=== PATIENT | female | born 1970 | race Caucasian/White ===

== ENCOUNTER → 2021-02-14 | Outpatient (CLI) | payer OTHER, SELFPAY ==
[2021-02-14 17:28] LABS: Absolute Lymphocyte Count 2.19 X10^3/uL (0.83-4.51); Absolute Neutrophil Count 5.1 X10^3/uL (2.0-7.7); Basophil# 0.03 X10^3/uL; Basophil% 0.4 % (0-1); Hematocrit 43.8 % (37-47); Hemoglobin 14.6 g/dL (12.0-15.0); Lymphocyte # 2.19 X10^3/ul (0.83-4.51); Lymphocyte % 27.7 % (19-41); Mean Corp Hgb Conc 33.3 g/dL (32-36); Mean Corpuscular Hgb 29.1 pg (27.0-32.0); Mean Corpuscular Volume 87.3 fL (81-99); Mean Platelet Vol. 10.5 fl (6.2-12.0); Monocyte# 0.56 X10^3/uL; Monocyte% 7.1 % (0-10); NRBC Flagged by Analyzer 0 % (0-5); Neutrophil % 64.5 % (47-70); Platelet Count 294 K/mm3 (150-450); RBC Distribution Width CV 13.2 % (11.6-14.6); RBC Distribution Width SD 41.9 fl (35.1-43.9); Red Blood Count 5.02 M/mm3 (4.2-5.4); White Blood Count 7.9 K/mm3 (4.4-11.0)
[2021-02-14 17:32] LABS: Erythrocyte Sedimentation Rate 6 mm/hr (0-30)
[2021-02-14 17:56] LABS: Anion Gap 6 (5-15); BUN 13 mg/dL (7-18); BUN/Creat Ratio 13.6 RATIO (10-20); CRP 5.43 mg/L (0.0-3.0); Chloride 109 mmol/L (98-107); Creatinine, Serum 0.95 mg/dL (0.55-1.02); EST Glomerular Filtration Rate 66 mL/min (>60); Est Glom Filt Rate - Afr Amer 80 mL/min (>60); Glucose 89 mg/dL (74-106); Potassium 3.7 mmol/L (3.5-5.1); Sodium Level 140 mmol/L (136-145); Vitamin D,25 Hydroxy 36.8 ng/mL
== END | disposition home or self-care (01) ==
PROVIDERS: Visit Provider Registered Nurse
DX: E55.9 Vitamin D deficiency, unspecified (principal); R22.0 Localized swelling, mass and lump, head
CPT/HCPCS: 80048; 82306; 85025; 85652; 86140; 86160

== ENCOUNTER → 2022-01-11 | Outpatient (CLI) | payer OTHER, SELFPAY ==
--- NOTE | 2022-01-11 14:06 | MRI_ITS ---
STUDY: MR PELVIS WITH T WITHOUT CONTRAST REASON FOR EXAM: Female, 51 years old. ANAL CANAL CA TECHNIQUE: Standardized fat and water weighted pulse sequences were obtained in all 3 orthogonal planes, pre-and post contrast administration. IV 18ml Dotarem was administered for the contrast portion of the examination. COMPARISON: None. FINDINGS: Normal urinary bladder. Normal visualized small intestine. Normal visualized colon. There is no pelvic fluid. There is no pelvic mass lesion or lymphadenopathy. There are multiple nodularities associated with the anal canal and rectum. These could represent either metastatic areas of neoplasm or areas of focal fecal material. No definite metastatic lesions are identified along the pelvic sidewalls. Normal visualized pelvic arteries. Normal osseous structures. Normal abdominal wall. MRI/Pelvis W/WO Contrast IMPRESSION: History of anal canal carcinoma. Electronically Signed: Bk Pablo MD at 5:40 EDT ,
== END | disposition home or self-care (01) ==
PROVIDERS: Referring Provider Internal Medicine Hematology & Oncology; Visit Provider Internal Medicine Hematology & Oncology
DX: C21.0 Malignant neoplasm of anus, unspecified (principal)
CPT/HCPCS: 72197; A9575

== ENCOUNTER → 2022-01-28 | Outpatient (CLI) | payer OTHER, SELFPAY ==
[2022-01-28 10:10] VITALS: BP 118/82; PULSE 77; RESP 18; TEMP 36.7; O2SAT 95; BMI 33.8
--- NOTE | 2022-01-28 11:05 | RAD_ITS ---
STUDY: X-RAY CHEST REASON FOR EXAM: Female, 51 years old. ANAL CA (PICC PLACEMENT) TECHNIQUE: Single AP portable view of the chest. COMPARISON: None. FINDINGS: A right-sided PICC line catheter has been placed. The tip is at the junction of the superior vena cava and right atrium. The lungs are clear and expanded. There is no demonstrated pleural abnormality. Normal size heart. Normal mediastinum and praful. Normal visualized pulmonary arteries. Normal visualized aortic arch and descending thoracic aorta. Normal visualized thoracic spine. Normal visualized ribs, clavicles, and shoulders. There is no demonstrated abnormality of the visualized soft tissue structures of the upper abdomen. RAD/CXR for Line Placement IMPRESSION: The tip of the right-sided PICC line catheter is at the junction of the superior vena cava and right atrium. Electronically Signed: Steve Prince MD at 11:17 EDT ,
== END | disposition home or self-care (01) ==
LOC: RAD 09:48
PROVIDERS: Referring Provider Internal Medicine Hematology & Oncology; Visit Provider Internal Medicine Hematology & Oncology
DX: C21.0 Malignant neoplasm of anus, unspecified (principal)
CPT/HCPCS: 36569; 71045

== ENCOUNTER 2022-02-19 10:21 | Emergency (ER) | payer OTHER, SELFPAY ==
[2022-02-19 10:22] VITALS: BP 109/78; PULSE 90; RESP 18; TEMP 36.6; O2SAT 97; BMI 34.2
[2022-02-19 10:27] VITALS: BP 109/78; PULSE 90; RESP 18; TEMP 36.6; O2SAT 97
--- NOTE | 2022-02-19 10:43 | CT_ITS ---
STUDY: CTA CHEST REASON FOR EXAM: Female, 51 years old. Right CP, sob, cancer, indwelling PICC RADIATION DOSAGE (If Supplied By Facility): CTDIvol = ( 8.6 ) mGy, DLP = ( 441.15 ) mGycm TECHNIQUE: The examination was performed with the intravenous administration of IV 75mL Isovue-370. Post-processing of the angiographic images was performed, with multiplanar reformation and 3D reconstruction. Individualized dose optimization techniques were used for this CT. COMPARISON: None. FINDINGS: Normal enhancement of the main pulmonary artery and right and left pulmonary arteries. Normal enhancement of the bilateral peripheral pulmonary arteries. There is no demonstrated pulmonary embolism. Normal thoracic aorta and visualized great vessels. There is no demonstrated aortic dissection. Normal heart and pericardium. Normal mediastinum. Normal hilar regions. Normal visualized trachea and bronchi. The lungs are well expanded. Normal pulmonary parenchyma. Normal pleura. Normal chest wall structures. There are degenerative changes of thoracic spine. Normal visualized upper abdomen. CT/CTA Chest W/WO Contrast IMPRESSION: Normal CTA chest examination, without a demonstrated pulmonary embolism or arterial dissection. Electronically Signed: Steve Prince MD at 11:57 EDT ,
--- NOTE | 2022-02-19 10:43 | EKG12_ITS ---
Test Reason : SOB Blood Pressure : / mmHG Vent. Rate : 101 BPM Atrial Rate : 101 BPM P-R Int : 174 ms QRS Dur : 076 ms QT Int : 348 ms P-R-T Axes : 040 -31 008 degrees QTc Int : 451 ms Sinus tachycardia Left axis deviation Low voltage QRS Abnormal ECG Confirmed by EVELIN MARRUFO, LOYD ([id number]), make up editor HAYDEE FRASER ([id number]) on 02/20/2022 9:03:08 AM Referred By: SEBASTIEN Confirmed By:LOYD WATERS MD
--- NOTE | 2022-02-19 10:44 | ED.VIS.DYS ---
HPI History of Present Illness Chief Complaint: Shortness of Breath Informant: patient Onset/Context/Timing Onset: Today Context: gradual and onset Timing: Continuous Quality: Positive for - (hard to breathe/take breaths) Current Severity: Mild Maximum Severity: Moderate Worsened by: Exertion Relieved by: Nothing Associated Symptoms Negative for cough Chest Pain: Positive for Intermittent and Tightness (right side, upper chest, no radiation) Narrative Narrative: Patient is actively undergoing chemotherapy and radiation for anal cancer, she is 4 weeks into treatments. Over the past 3 or 4 days she has had intermittent right upper chest pain that has for the most part been nonpleuritic and without any other symptoms, but today she started getting short of breath and she was sent for evaluation of pulmonary embolus. She has an indwelling right upper extremity PICC for her treatments. She has had no issues in her arm or swelling. No history of blood clots, no leg pain or swelling, no other symptoms. No near-syncope or syncope, palpitations, cough, fevers or chills, although she did have some low-grade temperatures 3 days ago in the 99 range but none today or yesterday. [facility] Medical History (Updated 02/19/22 @ 12:[address] Srinivasan Vail MD) Anal cancer Asthma GERD (gastroesophageal reflux disease) Home Medications Lactobacillus acidophilus 10 mg PO DAILY 02/19/22 [History Last Taken Unknown] albuterol 90 mcg INHALATION Q4H PRN 02/19/22 [History Last Taken Unknown] cetirizine 10 mg PO BID 02/19/22 [History Last Taken Unknown] cyanocobalamin (vitamin B-12) 50 mcg PO DAILY 02/19/22 [History Last Taken Unknown] erenumab-aooe 70 mg SUBCUT QMONTH 02/19/22 [History Last Taken Unknown] ergocalciferol (vitamin D2) 50,000 unit PO QWEEK 02/19/22 [History Last Taken Unknown] famotidine [Pepcid] 20 mg PO QHS 02/19/22 [History Last Taken Unknown] levothyroxine [Synthroid] 175 mcg PO DAILY 02/19/22 [History Last Taken Unknown] magnesium mg PO DAILY 02/19/22 [History Last Taken Unknown] pantoprazole 40 mg PO DAILY 02/19/22 [History Last Taken Unknown] polyethylene glycol 3350 [Miralax] 17 g PO BID 02/19/22 [History Last Taken Unknown] starch ea MISCELLANEOUS 02/19/22 [History Last Taken Unknown] sumatriptan succinate [Imitrex] 100 mg PO Q2H PRN 02/19/22 [History Last Taken Unknown] triamcinolone acetonide [Nasacort] 2 spray INTRANASAL DAILY 02/19/22 [History Last Taken Unknown] wheat dextrin g PO BID 02/19/22 [History Last Taken Unknown] Allergy/AdvReac Type Severity Reaction Status Date / Time Beta-Blockers AdvReac allergy Verified 02/19/22 10:25 (Beta-Adrenergic Bloc immunotherapy gluten AdvReac Diarrhea Verified 02/19/22 10:25 tramadol AdvReac headache, Verified 02/19/22 10:25 stiffness Surgical History (Updated 02/19/22 @ 10:58 by Lesley Tamayo) H/O thyroidectomy Social History Smoking Status: Never smoker ROS ROS ED Constitutional Constitutional ED: Denies chills or fever(s) Eyes Eyes: Denies change in vision or diplopia ENT ENT ED: Denies rhinorrhea or sore throat Cardiovascular Cardiovascular: Reports chest pain; Denies palpitations Respiratory/Chest Respiratory/Chest: Reports as per HPI and dyspnea; Denies cough Gastrointestinal Gastrointestinal: Reports other Details: Less anal pain than she used to have ; Denies abdominal pain, diarrhea, nausea or vomiting Genitourinary Genitourinary ED: Denies dysuria or hematuria Musculoskeletal Musculoskeletal: Denies back pain or neck pain Integumentary Denies abscess or rash Neurologic Neurologic: Denies headache(s), paresthesias or weakness Psychiatric Psychiatric: Denies anxiety or suicidal thoughts EXAM Physical Exam Const Vital Signs: 02/19/22 10:22 02/19/22 10:27 02/19/22 10:57 Temperature 98 F 98 F Temperature Source Temporal Temporal Pulse Rate 90 90 Respiratory Rate 18 18 Respiratory Effort Short of Breath Blood Pressure 109/78 109/78 Blood Pressure Mean 88 88 Pulse Ox 97 97 Oxygen Delivery Method Room Air Room Air Room Air 02/19/22 10:59 Temperature Temperature Source Pulse Rate Respiratory Rate Respiratory Effort Short of Breath Blood Pressure Blood Pressure Mean Pulse Ox Oxygen Delivery Method Positive well nourished and well developed General Appearance ED: well developed and NAD HEENT Reports moist mucous membranes normocephalic and atraumatic Eyes PERRL and EOMs intact bilaterally Neck full ROM and supple Resp normal respiratory effort and clear to auscultation bilaterally Cardio regular rate, regular rhythm and no murmurs Rate: Negative for tachycardic GI non-tender and non-distended Auscultation: normoactive bowel sounds Palpation: soft Back/Spine no CVA tenderness General Back: other FROM Extremity normal to inspection General Extremety ED: Negative for edema, pulses abnormal or tenderness General Extremity: Negative for edema or pulses abnormal Neuro oriented x3, CN's II-XII intact bilaterally and no sensory deficits noted Sensorium / Orientation: awake and alert Motor Exam: strength 5/5 throughout Skin no rashes or lesions noted and no wounds MDM MDM MDM Narrative Medical decision making narrative: Given that the patient is relatively high risk for a pulmonary embolus given her symptoms and the presence of a PICC line and cancer that is active, CT angiography of the chest was performed without performing a D-dimer which would be very likely to be elevated. Her CTA was normal, showing no pulmonary embolism, mass, infiltrate, dissection, or other acute abnormality. Her EKG is normal to for mild tachycardia and a left axis. Her other labs are normal including her heart enzymes which do not need to be repeated emergently. She was reassured, given Toradol, a possible diagnosis of pleurisy, and discharged to follow-up as scheduled for her next treatments. Lab Data Attestation: I reviewed the patient's lab results. Labs: Laboratory Results - last 24 hr 02/19/22 02/19/22 10:54 10:54 WBC 5.0 RBC 4.05 L Hgb 12.0 Hct 36.2 L MCV 89.4 MCH 29.6 MCHC 33.1 RDW Std Deviation 44.5 H RDW Coeff of Rosie 14.5 Plt Count 109 L MPV 8.6 Immature Gran % (Auto) 1.000 H Neut % (Auto) 77.0 H Lymph % (Auto) 8.7 L [place] % (Auto) 12.7 H Eos % (Auto) 0.0 Baso % (Auto) 0.6 Absolute Neuts (auto) 3.8 Absolute Lymphs (auto) 0.43 L Nucleated RBC % 0 Platelet Estimate ADEQUATE RBC Morphology NORM C+C Sodium 139 Potassium 3.7 Chloride 107 Carbon Dioxide 29.0 Anion Gap 3 L BUN 8 Creatinine 0.72 Estim Creat Clear Calc 78.19 Est GFR (MDRD) Af Amer 111 Est GFR (MDRD) Non-Af 91 BUN/Creatinine Ratio 11.1 Glucose 119 H Calcium 8.7 Troponin I High Sens < 3 L Radiography Diagnostic Testing: Clinical Impression(s) from Imaging Studies Chest CTA 02/19/22 10:43 IMPRESSION: Normal CTA chest examination, without a demonstrated pulmonary embolism or arterial dissection. Electronically Signed: Steve Prince MD at 11:57 EDT , Rhythm Strip Rhythm Strip: Sinus Tach Rate: 105 Ectopy: None EKG Initial EKG: Attestation: I personally reviewed and interpreted this EKG as follows: Interpretation: No Acute Injury Pattern, Sinus Tachycardia and LAFB Discharge Plan Triage Chief Complaint: Shortness of Breath ED Provider: Srinivasan Vail Dx/Rx/DC Orders Clinical Impression: Intermittent right-sided chest pain, Dyspnea, Anal cancer Instructions: ED Chest Pain, Noncardiac, ED Pleurisy Prescriptions: No Action levothyroxine [Synthroid] 175 mcg Tablet 175 mcg PO DAILY RF: 0 polyethylene glycol 3350 [Miralax] 17 gram Powder In Packet 17 g PO BID RF: 0 sumatriptan succinate [Imitrex] 100 mg Tablet 100 mg PO Q2H PRN (Reason: Migraine Headache) RF: 0 ergocalciferol (vitamin D2) 50,000 unit Tablet 50,000 unit PO QWEEK RF: 0 famotidine [Pepcid] 20 mg Tablet 20 mg PO QHS RF: 0 pantoprazole 40 mg Tablet,Delayed Release (Dr/Ec) 40 mg PO DAILY RF: 0 triamcinolone acetonide [Nasacort] 55 mcg Aerosol,[place] 2 spray INTRANASAL DAILY RF: 0 albuterol 90 mcg/actuation Aerosol 90 mcg INHALATION Q4H PRN (Reason: Wheezing) RF: 0 Lactobacillus acidophilus Capsule 10 mg PO DAILY RF: 0 magnesium 30 mg Tablet PO DAILY RF: 0 cyanocobalamin (vitamin B-12) 25 mcg Tablet 50 mcg PO DAILY RF: 0 starch Powder MISCELLANEOUS RF: 0 wheat dextrin 3 gram/3.5 gram Powder PO BID RF: 0 cetirizine 10 mg Capsule 10 mg PO BID RF: 0 erenumab-aooe 70 mg/mL Auto-Injector 70 mg SUBCUT QMONTH RF: 0 Primary Care Provider: Nicole Bailey Referrals: Nicole Bailey, PA [Primary Care Provider] - (And/or Dr. Corley for your next treatment as scheduled) Activity Restrictions/Additional Instructions: Okay to take ibuprofen as needed for the pain, if this is pleurisy responds well to that. Disposition Disposition: Home, Self Care
--- NOTE | 2022-02-19 10:48 | NURSING ---
NO OLD EKGS
[2022-02-19 10:57] VITALS: O2SAT 99
[2022-02-19] MEDS: 0.9% Normal Saline 1,000 ML 999 ML IV (10:59)
[2022-02-19 11:01] LABS: Absolute Lymphocyte Count 0.43 X10^3/uL (0.83-4.51); Absolute Neutrophil Count 3.8 X10^3/uL (2.0-7.7); Basophil# 0.03 X10^3/uL; Basophil% 0.6 % (0-1); Hematocrit 36.2 % (37-47); Lymphocyte # 0.43 X10^3/ul (0.83-4.51); Lymphocyte % 8.7 % (19-41); Mean Corp Hgb Conc 33.1 g/dL (32-36); Mean Corpuscular Hgb 29.6 pg (27.0-32.0); Mean Corpuscular Volume 89.4 fL (81-99); Mean Platelet Vol. 8.6 fl (6.2-12.0); Monocyte# 0.63 X10^3/uL; Monocyte% 12.7 % (0-10); NRBC Flagged by Analyzer 0 % (0-5); Neutrophil # 3.82 X10^3/uL (2.7-7.7); POSITIVE DIFFERENTIAL YES; Platelet Count 109 K/mm3 (150-450); RBC Distribution Width CV 14.5 % (11.6-14.6); RBC Distribution Width SD 44.5 fl (35.1-43.9); Red Blood Count 4.05 M/mm3 (4.2-5.4)
[2022-02-19 11:09] LABS: Differential Indicated SCAN CRITERIA MET
[2022-02-19 11:18] LABS: Anion Gap 3 (5-15); BUN 8 mg/dL (7-18); BUN/Creat Ratio 11.1 RATIO (10-20); Calcium,Total 8.7 mg/dL (8.5-10.1); Chloride 107 mmol/L (98-107); Creatinine, Serum 0.72 mg/dL (0.55-1.02); EST Glomerular Filtration Rate 91 mL/min (>60); Est Glom Filt Rate - Afr Amer 111 mL/min (>60); Estimated Creatinine Clearance 78.19 ml/min; Glucose 119 mg/dL (74-106); Potassium 3.7 mmol/L (3.5-5.1); Sodium Level 139 mmol/L (136-145); Troponin-I HS < 3 pg/mL (3.0-54.0)
[2022-02-19 11:44] LABS: Platelet Estimate ADEQUATE (ADEQ); Red Cell Morphology NORM C+C NORMAL (NORM C&C)
[2022-02-19 12:39] VITALS: BP 98/74; PULSE 93; RESP 16; O2SAT 98
[2022-02-19] MEDS: Ketorolac 30 MG/ML Syringe IV (12:41)
== END 2022-02-19 12:45 | disposition home or self-care (01) ==
PROVIDERS: Emergency Provider Emergency Medicine; PCP Physician Assistant; Visit Provider Emergency Medicine
DX: R06.02 Shortness of breath (principal); C21.0 Malignant neoplasm of anus, unspecified; R07.9 Chest pain, unspecified; J45.909 Unspecified asthma, uncomplicated; K21.9 Gastro-esophageal reflux disease without esophagitis; Z79.51 Long term (current) use of inhaled steroids; Z79.899 Other long term (current) drug therapy
CPT/HCPCS: 36592; 71275; 80048; 84484; 85025; 93005; 96361; 96374; 99284; J7030; Q9967; A4216

== ENCOUNTER 2022-03-10 14:36 | Emergency (ER) | payer OTHER, SELFPAY ==
[2022-03-10 14:37] VITALS: BP 113/76; PULSE 135; RESP 16; TEMP 36.6; O2SAT 96; BMI 34.5
--- NOTE | 2022-03-10 14:59 | EKG12_ITS ---
Test Reason : Blood Pressure : / mmHG Vent. Rate : 108 BPM Atrial Rate : 108 BPM P-R Int : 164 ms QRS Dur : 074 ms QT Int : 334 ms P-R-T Axes : 037 -32 007 degrees QTc Int : 447 ms Sinus tachycardia Left axis deviation Low voltage QRS Abnormal ECG Confirmed by JOHANA MARRUFO, ASTER ([id number]), staff editor HAYDEE FRASER ([id number]) on 03/12/2022 8:21:52 AM Referred By: SAMMY Confirmed By:ASTER VAUGHN MD
--- NOTE | 2022-03-10 15:04 | EDS_ITS ---
HPI History of Present Illness Chief Complaint: Fever Informant: patient Narrative Narrative: Presents to ED for evaluation for fever today after speaking with her on-call oncologist. Diagnosed with anal cancer in December. Last chemo treatment was 9 days ago. PICC line removed 2 days ago. She states she has been having dysuria. She finished reported antibiotics this past however stated it was for her groin rashes. Currently using Silvadene. Her oncologist Dr. Go has her on Pyridium. Urine is orange. Denies cough. States had chills today therefore checked her temperature an hour ago was 101.6 orally. Ibuprofen taken 3 hours ago as part of her pain regimen. Denies any diarrhea. States he has groin sores. She is vaccinated for COVID. No sick contacts. Prior similar symptoms: No PFSH PFSH Medical History Anal cancer Asthma GERD (gastroesophageal reflux disease) Home Medications Lactobacillus acidophilus 10 mg PO DAILY 02/19/22 [History Last Taken Unknown] albuterol 90 mcg/actuation aerosol inhaler 90 mcg inhalation Q4H PRN Wheezing 02/19/22 [History Last Taken Unknown] cetirizine 10 mg capsule 10 mg PO BID 02/19/22 [History Last Taken Unknown] cyanocobalamin (vitamin B-12) 25 mcg tablet 50 mcg PO DAILY 02/19/22 [History Last Taken Unknown] erenumab-aooe 70 mg/mL subcutaneous auto-injector 70 mg subcut QMONTH 02/19/22 [History Last Taken Unknown] ergocalciferol (vitamin D2) 50,000 unit tablet 50,000 unit PO QWEEK 02/19/22 [History Last Taken Unknown] famotidine 20 mg tablet (Pepcid) 20 mg PO QHS 02/19/22 [History Last Taken Unknown] levothyroxine 175 mcg tablet (Synthroid) 175 mcg PO DAILY 02/19/22 [History Last Taken Unknown] magnesium 30 mg tablet mg PO DAILY 02/19/22 [History Last Taken Unknown] pantoprazole 40 mg tablet,delayed release 40 mg PO DAILY 02/19/22 [History Last Taken Unknown] polyethylene glycol 3350 17 gram oral powder packet (Miralax) 17 g PO BID 02/19/22 [History Last Taken Unknown] starch ea miscellaneous 02/19/22 [History Last Taken Unknown] sumatriptan succinate 100 mg tablet (Imitrex) 100 mg PO Q2H PRN Migraine Headache 02/19/22 [History Last Taken Unknown] triamcinolone acetonide 55 mcg nasal spray aerosol (Nasacort) 2 spray intranasal DAILY 02/19/22 [History Last Taken Unknown] wheat dextrin 3 gram/3.5 gram oral powder g PO BID 02/19/22 [History Last Taken Unknown] levofloxacin 750 mg tablet 750 mg PO DAILY #9 tabs 03/10/22 [Rx Last Taken Unknown] Allergy/AdvReac Type Severity Reaction Status Date / Time Beta-Blockers AdvReac allergy Verified 03/10/22 14:39 (Beta-Adrenergic Bloc immunotherapy gluten AdvReac Diarrhea Verified 03/10/22 14:39 tramadol AdvReac headache, Verified 03/10/22 14:39 stiffness Surgical History H/O thyroidectomy Social History Smoking Status: Never smoker ROS ROS ED Constitutional Constitutional ED: Reports chills and fever(s); Denies sweats Eyes Eyes: Denies change in vision ENT ENT ED: Denies dysphagia or sore throat Cardiovascular Cardiovascular: Denies chest pain, leg edema, palpitations or racing heartbeat Respiratory/Chest Respiratory/Chest: Denies cough, dyspnea or dyspnea on exertion Gastrointestinal Gastrointestinal: Denies abdominal pain, diarrhea, nausea or vomiting Genitourinary Genitourinary ED: Reports dysuria; Denies hematuria or urinary frequency Musculoskeletal Musculoskeletal: Denies back pain, extremity pain or neck pain Integumentary Reports rash; Denies wounds Neurologic Neurologic: Denies headache(s), paresthesias or weakness EXAM Physical Exam Const Vital Signs: 03/10/22 14:37 03/10/22 15:25 03/10/22 16:45 Temperature 97.8 F Temperature Source Temporal Pulse Rate 135 H 95 Respiratory Rate 16 16 Respiratory Effort Normal Respiratory Pattern Normal Blood Pressure 113/76 113/78 Blood Pressure Mean 88 89 Pulse Ox 96 97 Oxygen Delivery Method Room Air Room Air 03/10/22 18:05 03/10/22 19:49 Temperature Temperature Source Pulse Rate 95 90 Respiratory Rate 16 16 Respiratory Effort Respiratory Pattern Blood Pressure 114/79 114/60 Blood Pressure Mean 90 Pulse Ox 98 Oxygen Delivery Method Room Air Positive well nourished and well developed General Appearance ED: well developed and NAD HEENT Reports moist mucous membranes normocephalic and atraumatic Eyes PERRL, EOMs intact bilaterally and conjunctivae normal General Eye ED: Yes normal appearance of both eyes Neck no lymphadenopathy and supple General: Negative for tenderness Chest Wall Chest: Negative for tenderness Resp normal respiratory effort and normal air movement Effort and Inspection: symmetric chest movement; Negative for respiratory distress Cardio regular rhythm and no murmurs Rate: tachycardic Peripheral Pulses: pulses 2+ throughout GI normal to inspection, nondistended, normoactive bowel sounds and non-tender Palpation: Negative for guarding or rebound tenderness present Back/Spine no CVA tenderness and no thoracic nor lumbar tenderness Extremity normal to inspection General Extremety ED: Negative for edema or tenderness General Extremity: Negative for edema Neuro oriented x3 and no sensory deficits noted Sensorium / Orientation: awake and alert Skin no wounds Skin Narrative: Bilateral groin with Silvadene cream, towards rectum, slight excoriation posteriorly bilaterally however there is no induration no drainage. MDM MDM MDM Narrative Medical decision making narrative: Patient reported fever at home no fever here chemotherapy 9 days ago. Neutropenic labs all obtained for work-up. White count 1.6 absolute neutrophils at 1.'s greater than 0.5. She had urine symptoms urine was positive for infection. Culture results sent. Rapid COVID negative. Chest x-ray 1 view reviewed by myself and read by radiology negative. She given fluids which improved her heart rate. EKG was sinus rhythm. Clinically feeling better on reevaluation. I did speak with covering oncologist Dr. Cartwright, who recalls the patient calling her earlier. Initial order for Rocephin and not given however she recommended Levaquin for broader coverage. This was given in the ED along with a prescription for additional 9 days of treatment. She will keep her radiation appointment tomorrow. She feels she can be discharged with outpatient follow-up. Return precautions discussed. This is discussed with patient and family understands. Lab Data Attestation: I reviewed the patient's lab results. Labs: Laboratory Results - last 24 hr 03/10/22 03/10/22 03/10/22 15:10 15:10 15:10 WBC 1.6 L RBC 3.74 L Hgb 11.1 L Hct 33.9 L MCV 90.6 MCH 29.7 MCHC 32.7 RDW Std Deviation 51.4 H RDW Coeff of Rosie 16.6 H Plt Count 94 L MPV 8.9 Immature Gran % (Auto) 0.600 Neut % (Auto) 58.7 Lymph % (Auto) 15.4 L [place] % (Auto) 25.3 H Eos % (Auto) 0.0 Baso % (Auto) 0.0 Absolute Neuts (auto) 1.0 L Absolute Lymphs (auto) 0.25 L Nucleated RBC % 0 Differential Comment SCANNED Diff Path Review May foll Sodium 138 Potassium 3.7 Chloride 107 Carbon Dioxide 25.0 Anion Gap 6 BUN 9 Creatinine 0.94 Estim Creat Clear Calc 59.89 Est GFR (MDRD) Af Amer 81 Est GFR (MDRD) Non-Af 67 BUN/Creatinine Ratio 9.6 L Glucose 99 Lactic Acid 0.9 Calcium 8.5 Total Bilirubin 0.50 AST 18 ALT 19 Alkaline Phosphatase 49 Total Protein 6.3 L Albumin 3.1 L Globulin 3.2 Albumin/Globulin Ratio 1.0 Urine Color Urine Clarity Urine pH Ur Specific [place] Urine Protein Urine Glucose (UA) Urine Ketones Urine Occult Blood Urine Nitrite Urine Bilirubin Urine Urobilinogen Ur Leukocyte Esterase Urine RBC Urine WBC Ur Squamous Epith Cells Urine Bacteria Urine Mucus 03/10/22 16:42 WBC RBC Hgb Hct MCV MCH MCHC RDW Std Deviation RDW Coeff of Rosie Plt Count MPV Immature Gran % (Auto) Neut % (Auto) Lymph % (Auto) [place] % (Auto) Eos % (Auto) Baso % (Auto) Absolute Neuts (auto) Absolute Lymphs (auto) Nucleated RBC % Differential Comment Diff Path Review Sodium Potassium Chloride Carbon Dioxide Anion Gap BUN Creatinine Estim Creat Clear Calc Est GFR (MDRD) Af Amer Est GFR (MDRD) Non-Af BUN/Creatinine Ratio Glucose Lactic Acid Calcium Total Bilirubin AST ALT Alkaline Phosphatase Total Protein Albumin Globulin Albumin/Globulin Ratio Urine Color Yellow Urine Clarity Clear Urine pH 7.0 Ur Specific [place] 1.005 Urine Protein Negative Urine Glucose (UA) Normal Urine Ketones Negative Urine Occult Blood 25 H Urine Nitrite Positive H Urine Bilirubin 3 H Urine Urobilinogen 4 H Ur Leukocyte Esterase 25 H Urine RBC 0-5 SEEN Urine WBC 0-5 SEEN Ur Squamous Epith Cells 0-5 SEEN Urine Bacteria RARE Urine Mucus 0 SEEN Radiography Diagnostic Testing: Clinical Impression(s) from Imaging Studies Chest X-Ray 03/10/22 15:15 IMPRESSION: Normal x-ray examination of the chest. Electronically Signed: Arcenio Neil MD at 15:58 EDT , EKG Initial EKG: Attestation: I personally reviewed and interpreted this EKG as follows: Comments: Sinus rate of 108, no ST changes isolated T wave version leads III. Nonspecific. Discharge Plan Triage Chief Complaint: Fever ED Provider: Jovi Gaona Dx/Rx/DC Orders Clinical Impression: UTI (urinary tract infection), Cancer of anorectum, Fever, Neutropenia Instructions: Neutropenia, Urinary Tract Infections in Women, ED Fever Control (Adult) Prescriptions: New levofloxacin 750 mg tablet 750 mg PO DAILY Qty: 9 0RF Rx Instructions: next dose 03/11/22 No Action levothyroxine [Synthroid] 175 mcg Tablet 175 mcg PO DAILY polyethylene glycol 3350 [Miralax] 17 gram Powder In Packet 17 g PO BID sumatriptan succinate [Imitrex] 100 mg Tablet 100 mg PO Q2H PRN (Reason: Migraine Headache) ergocalciferol (vitamin D2) 50,000 unit Tablet 50,000 unit PO QWEEK famotidine [Pepcid] 20 mg Tablet 20 mg PO QHS pantoprazole 40 mg Tablet,Delayed Release (Dr/Ec) 40 mg PO DAILY triamcinolone acetonide [Nasacort] 55 mcg Aerosol,[place] 2 spray INTRANASAL DAILY albuterol 90 mcg/actuation Aerosol 90 mcg INHALATION Q4H PRN (Reason: Wheezing) Lactobacillus acidophilus Capsule 10 mg PO DAILY magnesium 30 mg Tablet PO DAILY cyanocobalamin (vitamin B-12) 25 mcg Tablet 50 mcg PO DAILY starch Powder MISCELLANEOUS wheat dextrin 3 gram/3.5 gram Powder PO BID cetirizine 10 mg Capsule 10 mg PO BID erenumab-aooe 70 mg/mL Auto-Injector 70 mg SUBCUT QMONTH Primary Care Provider: Nicole Bailey Referrals: Kim Go MD [STAFF PHYSICIAN] - 1-2 Days if not improving Nicole Bailey, PA [Primary Care Provider] - Activity Restrictions/Additional Instructions: Work-up findings of UTI. White blood cell count 1.6, absolute neutrophils 1000. Take antibiotic as prescribed. Continue with planned radiation treatment tomorrow. Follow-up with Dr. Molina. Return if any worsening symptoms. Disposition Disposition: Home, Self Care Discharge Date/Time: 03/10/22 19:50
[2022-03-10] MEDS: 0.9% Normal Saline 1,000 ML 999 ML IV (15:12)
--- NOTE | 2022-03-10 15:15 | RAD_ITS ---
STUDY: X-RAY CHEST REASON FOR EXAM: Female, 51 years old. fever TECHNIQUE: Single AP portable view of the chest. COMPARISON: None. FINDINGS: The lungs are clear and expanded. There is no demonstrated pleural abnormality. Normal size heart. Normal mediastinum and praful. Normal visualized pulmonary arteries. Normal visualized aortic arch and descending thoracic aorta. Normal visualized thoracic spine. Normal visualized ribs, clavicles, and shoulders. There is no demonstrated abnormality of the visualized soft tissue structures of the upper abdomen. RAD/Chest 1 View (Portable) IMPRESSION: Normal x-ray examination of the chest. Electronically Signed: Arcenio Neil MD at 15:58 EDT ,
[2022-03-10 15:27] LABS: Absolute Lymphocyte Count 0.25 X10^3/uL (0.83-4.51); Hematocrit 33.9 % (37-47); Hemoglobin 11.1 g/dL (12.0-15.0); Lymphocyte # 0.25 X10^3/ul (0.83-4.51); Lymphocyte % 15.4 % (19-41); Mean Corp Hgb Conc 32.7 g/dL (32-36); Mean Corpuscular Hgb 29.7 pg (27.0-32.0); Mean Corpuscular Volume 90.6 fL (81-99); Mean Platelet Vol. 8.9 fl (6.2-12.0); Monocyte# 0.41 X10^3/uL; Monocyte% 25.3 % (0-10); NRBC Flagged by Analyzer 0 % (0-5); Neutrophil # 0.95 X10^3/uL (2.7-7.7); Neutrophil % 58.7 % (47-70); POSITIVE COUNT YES; POSITIVE DIFFERENTIAL YES; Platelet Count 94 K/mm3 (150-450); RBC Distribution Width CV 16.6 % (11.6-14.6); RBC Distribution Width SD 51.4 fl (35.1-43.9); Red Blood Count 3.74 M/mm3 (4.2-5.4); White Blood Count 1.6 K/mm3 (4.4-11.0)
[2022-03-10 15:36] LABS: Differential Indicated SCAN CRITERIA MET
[2022-03-10 15:46] LABS: Lactic Acid 0.9 mmol/L (0.4-1.9)
[2022-03-10 15:48] LABS: AST(SGOT) 18 U/L (15-37); Alanine Aminotransfer ALT/SGPT 19 U/L (13-56); Albumin, Serum 3.1 g/dL (3.2-5.0); Alkaline Phosphatase 49 U/L (45-117); Anion Gap 6 (5-15); BUN 9 mg/dL (7-18); BUN/Creat Ratio 9.6 RATIO (10-20); Calcium,Total 8.5 mg/dL (8.5-10.1); Chloride 107 mmol/L (98-107); Creatinine, Serum 0.94 mg/dL (0.55-1.02); EST Glomerular Filtration Rate 67 mL/min (>60); Est Glom Filt Rate - Afr Amer 81 mL/min (>60); Estimated Creatinine Clearance 59.89 ml/min; Globulin 3.2 g/dL (2.2-4.2); Glucose 99 mg/dL (74-106); Potassium 3.7 mmol/L (3.5-5.1); Protein, Total 6.3 g/dL (6.4-8.2); Sodium Level 138 mmol/L (136-145)
[2022-03-10 16:17] LABS: Differential Comment SCANNED
[2022-03-10 16:45] VITALS: BP 113/78; PULSE 95; RESP 16; O2SAT 97
[2022-03-10 16:47] LABS: Mucous, Urine 0 SEEN /hpf (<or=2+)
[2022-03-10 16:51] LABS: Color, Urine Yellow (Yellow); Glucose, Dipstick Normal (Normal); Ketone-Dipstick Negative (Negative); Leukocyte Esterase-Dipstick 25 /ul (Negative); Nitrite-Dipstick Positive (Negative); Occult Blood-Urine 25 /ul (Negative); Protein-Dipstick Negative (Negative); Specific Gravity, Urine 1.005 (1.002-1.030); Urine Clarity Clear (Clear); Urine Urobilinogen 4 mg/dl (Normal)
[2022-03-10 16:52] LABS: Urine Bilirubin Dipstick 3 mg/dL (Negative)
[2022-03-10 17:22] LABS: Bacteria RARE /hpf (None Seen); Red Blood Cells-Urine 0-5 SEEN /hpf (0-5); Squamous Epithelial Cells - UA 0-5 SEEN /hpf (5-10); White Blood Cells 0-5 SEEN /hpf (0-5)
[2022-03-10] MEDS: levoFLOXacin IV 750 MG/150 ML BAG 100 MG IV (17:40)
[2022-03-10 18:05] VITALS: BP 114/79; PULSE 95; RESP 16; O2SAT 98
[2022-03-10 19:49] VITALS: BP 114/60; PULSE 90; RESP 16
[2022-03-11 12:33] LABS: Pathologist Review Reviewed
== END 2022-03-10 19:50 | disposition home or self-care (01) ==
PROVIDERS: Emergency Provider Emergency Medicine; PCP Physician Assistant; Visit Provider Emergency Medicine
DX: N39.0 Urinary tract infection, site not specified (principal); D70.9 Neutropenia, unspecified; C21.8 Malignant neoplasm of overlapping sites of rectum, anus and anal canal; R50.9 Fever, unspecified
CPT/HCPCS: 71045; 80053; 81001; 83605; 85025; 87040; 87086; 87811; 93005; 96361; 96365; 96366; 99284; J7030; A4216

== ENCOUNTER 2022-03-13 09:51 | Observation (INO) | payer OTHER, SELFPAY ==
[2022-03-13 09:52] VITALS: BP 103/90; PULSE 121; RESP 18; TEMP 36.6; O2SAT 97; BMI 33.3
--- NOTE | 2022-03-13 10:08 | EX.ED.DYSGE1 ---
HPI History of Present Illness Chief Complaint: Weakness Detail of Chief Complaint: Generalized weakness Informant: patient Narrative Narrative: Patient presents to the emergency department with complaint of generalized weakness for the last 2 days. Patient states that she just finished radiation therapy to her anus as she is being treated for anal cancer. Patient also finished chemo about a week ago. She was being seen by her oncologist today as she had a visit over the weekend for fever and was diagnosed with a UTI and started on Levaquin. Patient noted to have chiang to her perineum and rectal area related to the radiation treatments. Patient has become progressively weak and the fianc? who has been taking care of her came down with a stomach flu and has been unable to care for her. Dr. Jones recommended patient come to the ER for fluids and admission for placement to rehab facility. Patient unable to care for self at home currently. Patient states she took some oxycodone around 7:30 AM for her pain and is feeling relatively comfortable currently. Patient did have a low-grade fever last night up to 99 and still having some mild dysuria but the Azo that she was prescribed is helping with those symptoms. Patient still on the Levaquin and was prescribed a 9-day course. Patient also started with some diarrhea yesterday. She had nausea but no vomiting. [facility] Medical History (Updated 03/13/22 @ 12:[address] Ai Pabon DO) Anal cancer Anxiety Asthma GERD (gastroesophageal reflux disease) Home Medications Lactobacillus acidophilus 10 mg PO BID 02/19/22 [History Last Taken Unknown] albuterol 90 mcg/actuation aerosol inhaler 90 mcg inhalation Q4H PRN Wheezing 02/19/22 [History Last Taken Unknown] cetirizine 10 mg capsule 10 mg PO BID 02/19/22 [History Last Taken Unknown] cyanocobalamin (vitamin B-12) 25 mcg tablet 50 mcg PO DAILY 02/19/22 [History Last Taken Unknown] ergocalciferol (vitamin D2) 50,000 unit tablet 50,000 unit PO QWEEK 02/19/22 [History Last Taken Unknown] famotidine 20 mg tablet (Pepcid) 20 mg PO QHS 02/19/22 [History Last Taken Unknown] levothyroxine 175 mcg tablet (Synthroid) 175 mcg PO DAILY 02/19/22 [History Last Taken Unknown] magnesium 30 mg tablet mg PO DAILY 02/19/22 [History Last Taken Unknown] pantoprazole 40 mg tablet,delayed release 40 mg PO DAILY 02/19/22 [History Last Taken Unknown] polyethylene glycol 3350 17 gram oral powder packet (Miralax) 17 g PO BID 02/19/22 [History Last Taken Unknown] sumatriptan succinate 100 mg tablet (Imitrex) 100 mg PO Q2H PRN Migraine Headache 02/19/22 [History Last Taken Unknown] triamcinolone acetonide 55 mcg nasal spray aerosol (Nasacort) 2 spray intranasal DAILY 02/19/22 [History Last Taken Unknown] wheat dextrin 3 gram/3.5 gram oral powder 2 packet PO BID 02/19/22 [History Last Taken Unknown] levofloxacin 750 mg tablet 750 mg PO DAILY #9 tabs 03/10/22 [Rx Last Taken Unknown] mineral oil-hydrophil petrolat topical ointment (Aquaphor) 1 applic topical TID 03/13/22 [History Last Taken Unknown] oxycodone 5 mg tablet 5 - 10 mg PO Q3H PRN Pain 03/13/22 [History Last Taken Unknown] silver sulfadiazine 1 % topical cream (Silvadene) 1 applic topical BID 03/13/22 [History Last Taken Unknown] Allergy/AdvReac Type Severity Reaction Status Date / Time Beta-Blockers AdvReac allergy Verified 03/13/22 09:51 (Beta-Adrenergic Bloc immunotherapy gluten AdvReac Diarrhea Verified 03/13/22 09:51 tramadol AdvReac headache, Verified 03/13/22 09:51 stiffness Surgical History H/O thyroidectomy Social History Smoking Status: Never smoker ROS ROS ED Review of Systems ROS Unobtainable: other Constitutional Constitutional ED: Reports lethargy; Denies chills, fever(s), sweats or weight loss Eyes Eyes: Denies blurry vision, change in vision or diplopia ENT ENT ED: Denies rhinorrhea or sore throat Cardiovascular Cardiovascular: Reports chest pain and racing heartbeat; Denies orthopnea Respiratory/Chest Respiratory/Chest: Reports dyspnea and dyspnea on exertion; Denies cough, orthopnea or sputum Gastrointestinal Gastrointestinal: Reports diarrhea and nausea; Denies abdominal pain or vomiting Genitourinary Genitourinary ED: Reports dysuria; Denies hematuria or urinary frequency Musculoskeletal Musculoskeletal: Denies arthralgias, back pain, myalgias or neck pain Integumentary Denies abscess, Abrasions or rash Neurologic Neurologic: Reports weakness; Denies headache(s) Psychiatric Psychiatric: Denies anxiety, depression or suicidal thoughts Endocrine Endocrinology: Denies polydipsia, polyphagia or polyuria Hematologic/Lymphatic Hematologic/Lymphatic: Denies easy bleeding, easy bruising or lymphadenopathy Allergic/Immunologic Allergic/Immunologic ED: Denies mouth swelling, tongue swelling or urticaria EXAM Physical Exam Const Vital Signs: 03/13/22 09:52 03/13/22 10:51 Temperature 97.8 F Temperature Source Temporal Pulse Rate 121 H 72 Respiratory Rate 18 16 Blood Pressure 103/90 H 106/86 H Blood Pressure Mean 94 92 Pulse Ox 97 97 Oxygen Delivery Method Room Air Room Air Positive well nourished and well developed General Appearance ED: well developed and NAD HEENT Reports TM's clear and moist mucous membranes normocephalic and atraumatic; Negative for trauma or tenderness Tympanic Membrane ED: Yes TM's clear Eyes PERRL and EOMs intact bilaterally General Eye ED: Negative for pale conjunctiva or scleral icterus Neck no lymphadenopathy, supple and no JVD General: Negative for tenderness Chest Wall inspection of chest normal and palpation of chest normal Chest: Negative for tenderness Resp normal respiratory effort and clear to auscultation bilaterally Effort and Inspection: Negative for respiratory distress or pain with movement Auscultation: Negative for rhonchi, wheezes or diminished lung sounds Cardio regular rate, regular rhythm, S1 normal heart sound, S2 normal heart sound and no murmurs Peripheral Pulses: pulses 2+ throughout GI normal to inspection, nondistended, normoactive bowel sounds, soft to palpation, non-tender, non-distended and no masses Back/Spine no CVA tenderness and no thoracic nor lumbar tenderness Extremity normal to inspection General Extremety ED: Negative for edema General Extremity: Negative for edema Neuro oriented x3, CN's II-XII intact bilaterally, no sensory deficits noted and gait normal Sensorium / Orientation: awake, alert, oriented to person, oriented to place and oriented to time Motor Exam: strength 5/5 throughout and strength abnormal Psych mental status grossly normal Skin no rashes or lesions noted and no wounds MDM MDM MDM Narrative Medical decision making narrative: IV line established on arrival. Patient was given normal saline. Lab work-up showed a leukopenia. Lactate was normal. Urinalysis was positive for nitrates but otherwise relatively unremarkable. She had a urine culture on the of this month that did not have any growth. At this point I will discuss case with hospitalist evaluate patient for admission for failure to thrive and generalized weakness. I suspect she may also have a viral gastroenteritis given recent onset of diarrhea. Diarrhea also may be related to recent Levaquin antibiotics being started. Lab Data Attestation: I reviewed the patient's lab results. Labs: Laboratory Results - last 24 hr 03/13/22 03/13/22 03/13/22 10:19 10:19 10:19 WBC 1.8 L RBC 3.69 L Hgb 11.3 L Hct 33.8 L MCV 91.6 MCH 30.6 MCHC 33.4 RDW Std Deviation 53.1 H RDW Coeff of Rosie 17.2 H Plt Count 103 L MPV 8.9 Immature Gran % (Auto) 1.700 H Neut % (Auto) 70.2 H Lymph % (Auto) 11.8 L [place] % (Auto) 15.7 H Eos % (Auto) 0.0 Baso % (Auto) 0.6 Absolute Neuts (auto) 1.3 L Absolute Lymphs (auto) 0.21 L Nucleated RBC % 0 Differential Comment Diff Path Review May foll Platelet Estimate SLT DEC RBC Morphology N CHROM Anisocytosis 1+ Sodium 138 Potassium 3.5 Chloride 106 Carbon Dioxide 28.0 Anion Gap 4 L BUN 13 Creatinine 1.13 H Estim Creat Clear Calc 49.27 Est GFR (MDRD) Af Amer 66 Est GFR (MDRD) Non-Af 54 L BUN/Creatinine Ratio 11.5 Glucose 98 Lactic Acid 1.0 Calcium 9.0 Total Bilirubin 0.40 AST 18 ALT 17 Alkaline Phosphatase 52 Total Protein 6.7 Albumin 3.1 L Globulin 3.6 Albumin/Globulin Ratio 0.9 Urine Color Urine Clarity Urine pH Ur Specific [place] Urine Protein Urine Glucose (UA) Urine Ketones Urine Occult Blood Urine Nitrite Urine Bilirubin Urine Urobilinogen Ur Leukocyte Esterase Urine RBC Urine WBC Ur Squamous Epith Cells Urine Bacteria Urine Mucus 03/13/22 11:35 WBC RBC Hgb Hct MCV MCH MCHC RDW Std Deviation RDW Coeff of Rosie Plt Count MPV Immature Gran % (Auto) Neut % (Auto) Lymph % (Auto) [place] % (Auto) Eos % (Auto) Baso % (Auto) Absolute Neuts (auto) Absolute Lymphs (auto) Nucleated RBC % Differential Comment Diff Path Review Platelet Estimate RBC Morphology Anisocytosis Sodium Potassium Chloride Carbon Dioxide Anion Gap BUN Creatinine Estim Creat Clear Calc Est GFR (MDRD) Af Amer Est GFR (MDRD) Non-Af BUN/Creatinine Ratio Glucose Lactic Acid Calcium Total Bilirubin AST ALT Alkaline Phosphatase Total Protein Albumin Globulin Albumin/Globulin Ratio Urine Color SEE COMMENT BELOW Urine Clarity Sl. Cloudy Urine pH 6.5 Ur Specific [place] 1.015 Urine Protein 30 H Urine Glucose (UA) Normal Urine Ketones Negative Urine Occult Blood 10 H Urine Nitrite Positive H Urine Bilirubin 6 H Urine Urobilinogen 12 H Ur Leukocyte Esterase Negative Urine RBC 0-5 SEEN Urine WBC 0 SEEN Ur Squamous Epith Cells 0-5 SEEN Urine Bacteria 1+ Urine Mucus 0 SEEN Discharge Plan Triage Chief Complaint: Weakness ED Provider: Ai Paobn Dx/Rx/DC Orders Clinical Impression: Neutropenia, Weakness, Diarrhea, Adult failure to thrive Prescriptions: No Action levothyroxine [Synthroid] 175 mcg Tablet 175 mcg PO DAILY polyethylene glycol 3350 [Miralax] 17 gram Powder In Packet 17 g PO BID sumatriptan succinate [Imitrex] 100 mg Tablet 100 mg PO Q2H PRN (Reason: Migraine Headache) ergocalciferol (vitamin D2) 50,000 unit Tablet 50,000 unit PO QWEEK famotidine [Pepcid] 20 mg Tablet 20 mg PO QHS pantoprazole 40 mg Tablet,Delayed Release (Dr/Ec) 40 mg PO DAILY triamcinolone acetonide [Nasacort] 55 mcg Aerosol,[place] 2 spray INTRANASAL DAILY albuterol 90 mcg/actuation Aerosol 90 mcg INHALATION Q4H PRN (Reason: Wheezing) Lactobacillus acidophilus Capsule 10 mg PO BID magnesium 30 mg Tablet PO DAILY cyanocobalamin (vitamin B-12) 25 mcg Tablet 50 mcg PO DAILY wheat dextrin 3 gram/3.5 gram Powder 2 packet PO BID cetirizine 10 mg Capsule 10 mg PO BID levofloxacin 750 mg tablet 750 mg PO DAILY Qty: 9 0RF Rx Instructions: next dose 03/11/22 silver sulfadiazine [Silvadene] 1 % Cream 1 applic TOPICAL BID Rx Instructions: apply a 1.5 mm thickness Aquaphor Ointment 1 applic TOPICAL TID oxycodone 5 mg Tablet 5 - 10 mg PO Q3H PRN (Reason: Pain) Primary Care Provider: Nicole Bailey Referrals: Nicole Bailey, SALINAS [Primary Care Provider] - Disposition Disposition: [facility]
[2022-03-13 10:49] LABS: ALB/GLOB Ratio 0.9 RATIO (0.9-2.4); AST(SGOT) 18 U/L (15-37); Alanine Aminotransfer ALT/SGPT 17 U/L (13-56); Albumin, Serum 3.1 g/dL (3.2-5.0); Alkaline Phosphatase 52 U/L (45-117); Anion Gap 4 (5-15); BUN 13 mg/dL (7-18); BUN/Creat Ratio 11.5 RATIO (10-20); Chloride 106 mmol/L (98-107); Creatinine, Serum 1.13 mg/dL (0.55-1.02); EST Glomerular Filtration Rate 54 mL/min (>60); Est Glom Filt Rate - Afr Amer 66 mL/min (>60); Estimated Creatinine Clearance 49.27 ml/min; Globulin 3.6 g/dL (2.2-4.2); Glucose 98 mg/dL (74-106); Potassium 3.5 mmol/L (3.5-5.1); Protein, Total 6.7 g/dL (6.4-8.2); Sodium Level 138 mmol/L (136-145)
[2022-03-13] MEDS: 0.9% Normal Saline 1,000 ML 1000 ML IV (10:49)
[2022-03-13 10:51] VITALS: BP 106/86; PULSE 72; RESP 16; O2SAT 97
[2022-03-13 10:59] LABS: Absolute Lymphocyte Count 0.21 X10^3/uL (0.83-4.51); Absolute Neutrophil Count 1.3 X10^3/uL (2.0-7.7); Basophil# 0.01 X10^3/uL; Basophil% 0.6 % (0-1); Hematocrit 33.8 % (37-47); Hemoglobin 11.3 g/dL (12.0-15.0); Lymphocyte # 0.21 X10^3/ul (0.83-4.51); Lymphocyte % 11.8 % (19-41); Mean Corp Hgb Conc 33.4 g/dL (32-36); Mean Corpuscular Hgb 30.6 pg (27.0-32.0); Mean Corpuscular Volume 91.6 fL (81-99); Mean Platelet Vol. 8.9 fl (6.2-12.0); Monocyte# 0.28 X10^3/uL; Monocyte% 15.7 % (0-10); NRBC Flagged by Analyzer 0 % (0-5); Neutrophil # 1.25 X10^3/uL (2.7-7.7); Neutrophil % 70.2 % (47-70); POSITIVE DIFFERENTIAL YES; Platelet Count 103 K/mm3 (150-450); RBC Distribution Width CV 17.2 % (11.6-14.6); RBC Distribution Width SD 53.1 fl (35.1-43.9); Red Blood Count 3.69 M/mm3 (4.2-5.4); White Blood Count 1.8 K/mm3 (4.4-11.0)
[2022-03-13 11:04] LABS: Differential Indicated SCAN CRITERIA MET
[2022-03-13 11:43] LABS: Mucous, Urine 0 SEEN /hpf (<or=2+); White Blood Cells 0 SEEN /hpf (0-5)
[2022-03-13 11:44] LABS: Glucose, Dipstick Normal (Normal); Ketone-Dipstick Negative (Negative); Leukocyte Esterase-Dipstick Negative /ul (Negative); Nitrite-Dipstick Positive (Negative); Occult Blood-Urine 10 /ul (Negative); Protein-Dipstick 30 mg/dl (Negative); Specific Gravity, Urine 1.015 (1.002-1.030); Urine Clarity Sl. Cloudy (Clear); Urine Urobilinogen 12 mg/dl (Normal); Urine pH 6.5 (5.0 - 8.0)
[2022-03-13 11:45] LABS: Color, Urine SEE COMMENT BELOW (Yellow); Urine Bilirubin Dipstick 6 mg/dL (Negative)
[2022-03-13 11:50] LABS: Bacteria 1+ /hpf (None Seen); Red Blood Cells-Urine 0-5 SEEN /hpf (0-5); Squamous Epithelial Cells - UA 0-5 SEEN /hpf (5-10)
[2022-03-13 11:52] LABS: Anisocytosis 1+; Platelet Estimate SLT DEC (ADEQ); Red Cell Morphology N CHROM NORMAL (NORM C&C)
[2022-03-13] MEDS: 0.9% Normal Saline 1,000 ML 150 ML IV (12:10)
[2022-03-13] MEDS: Ondansetron 4 MG/2 ML Vial IV ×2 (12:10→18:48)
[2022-03-13] MEDS: Morphine 4 MG/ML Syringe IV (12:12)
[2022-03-13 13:00] VITALS: BP 117/80; PULSE 77; RESP 16; TEMP 36.4; O2SAT 97
--- NOTE | 2022-03-13 13:20 | HP.PCM.HOS_ITS ---
Documented by User: Dr. Selena Corley DO 03/13/22 18:14 HPI - General General Date of Admission: 03/13/[address] Corley Is a 52-year-old white female who presented to the emergency department at [facility] on 03/13/2022 at the instruction of her oncologist Dr. Go. She saw Dr. Jones in his office today at which time she was complaining of increased weakness as well as nausea, abdominal and perianal pain and loose stool. She has a history of rectal cancer and has just finished chemo and radiation. Her last radiation therapy was on 03/11/2022. For the past 2 weeks she has been having some nausea and been treating it with Zofran alternating with Phenergan and having fairly good success and last week she experiencing some spotting with blood from the perianal area related to radiation chiang. She also began having pain in her groin and urine a.m. related to radiation chiang. She currently is living with her boyfriend and he has been helping her although he has become ill over the last 4 days with nausea vomiting and diarrhea. On 03/10/2022 she presented to the emergency department here for dysuria and fever. There is been no documented fever identified and a urine culture was obtained at that time and she was discharged on Levaquin however her urine culture is negative for any growth at this time. She states she chronically needs to have loose stool or she begins bleeding rectally related to her cancer as well as hemorrhoids that need to be followed up with surgery now that her rectal cancer treatment has been completed. Current plans for rectal cancer are continued monitoring and an MRI is pending. Dr. Molina thought she would benefit from admission to a rehab versus skilled facility to increase her strength prior to being discharged back warm. In the emergency department her temperature was 97.8, blood pressure 103/90, pulse 121, respiration rate 18, and oxygen saturations were 97% on room air. Her CBC shows pancytopenia with an absolute neutrophil count of 1.3. Her BMP sh ows a mildly elevated creatinine of 1.13 with normal electrolytes. Her urinalysis is positive for blood and nitrites and protein however no white cells or leukoesterase is present. She has 1+ bacteria. In the emergency department she was given IV fluids antiemetics and pain medication for her perirectal pain and request for admission for placement pending was made. [employer] Student ALISHA RICE, is a 52 F who presents to [facility] emergency department on 03/13/2022 following referral from her oncologist, Dr. Go, for increased weakness as well as nausea, abdominal and perineal pain, and diarrhea. Patient has history of rectal cancer and just finished radiation therapy on 03/11/2029. Patient also reports internal and external hemorrhoids. For the past 2 weeks, the patient has had nausea treated with alternating Zofran and Phenergan. Last week, Ms. Rice began having spotting from perineal area, believed to be secondary to radiation chiang. She also began to have pain in her groin and perineal area, decreased appetite, weakness, multiple near falls, and lightheadedness. She reports that her boyfriend with whom she lives became ill with nausea/vomiting/diarrhea 4 days ago. On 03/10/2022, patient presented to the emergency department for dysuria and fever. The patient was discharged home with levofloxacin p.o. for UTI. Then last night the patient began having diarrhea. This morning the patient went to see her oncologist, and was sent to the emergency department for admission with goal for rehab placement. On arrival to the emergency department, patient temperature was 97.8, blood pressure 103/90, pulse 121, respirations 18, 97% on room air. Patient's CBC shows white blood cell count of 1.8 with ANC of 1.3, hemoglobin 11.3 with normal MCV, and platelet count 103.? Patient's BMP shows creatinine elevated at 1.13 with normal electrolytes.? Urinalysis is positive for blood, nitrates, and protein; however, no white blood cells or leukocyte esterases present.? In the emergency department, patient was given 1 L normal saline bolus with maintenance at 150 mL an hour. Patient was given morphine and Zofran. Most recent vital signs show blood pressure at 117/80 and heart rate at 77. [facility] Medical History (Updated 03/13/22 @ 18:[address] Selena Corley DO) Anal cancer Anxiety Asthma Encounter for management of wound VAC External hemorrhoid GERD (gastroesophageal reflux disease) Hypothyroidism Internal hemorrhoid Home Medications Lactobacillus acidophilus 10 mg PO BID 02/19/22 [History Last Taken Unknown] albuterol 90 mcg/actuation aerosol inhaler 90 mcg inhalation Q4H PRN Wheezing 02/19/22 [History Last Taken Unknown] cetirizine 10 mg capsule 10 mg PO BID 02/19/22 [History Last Taken Unknown] cyanocobalamin (vitamin B-12) 25 mcg tablet 50 mcg PO DAILY 02/19/22 [History Last Taken Unknown] ergocalciferol (vitamin D2) 50,000 unit tablet 50,000 unit PO QWEEK 02/19/22 [History Last Taken Unknown] famotidine 20 mg tablet (Pepcid) 20 mg PO QHS 02/19/22 [History Last Taken Unknown] levothyroxine 175 mcg tablet (Synthroid) 175 mcg PO DAILY 02/19/22 [History Last Taken Unknown] magnesium 30 mg tablet mg PO DAILY 02/19/22 [History Last Taken Unknown] pantoprazole 40 mg tablet,delayed release 40 mg PO DAILY 02/19/22 [History Last Taken Unknown] polyethylene glycol 3350 17 gram oral powder packet (Miralax) 17 g PO BID 02/19/22 [History Last Taken Unknown] sumatriptan succinate 100 mg tablet (Imitrex) 100 mg PO Q2H PRN Migraine Headache 02/19/22 [History Last Taken Unknown] triamcinolone acetonide 55 mcg nasal spray aerosol (Nasacort) 2 spray intranasal DAILY 02/19/22 [History Last Taken Unknown] wheat dextrin 3 gram/3.5 gram oral powder 2 packet PO BID 02/19/22 [History Last Taken Unknown] levofloxacin 750 mg tablet 750 mg PO DAILY #9 tabs 03/10/22 [Rx Last Taken Unknown] mineral oil-hydrophil petrolat topical ointment (Aquaphor) 1 applic topical TID 03/13/22 [History Last Taken Unknown] oxycodone 5 mg tablet 5 - 10 mg PO Q3H PRN Pain 03/13/22 [History Last Taken Unknown] silver sulfadiazine 1 % topical cream (Silvadene) 1 applic topical BID 03/13/22 [History Last Taken Unknown] Allergy/AdvReac Type Severity Reaction Status Date / Time Beta-Blockers AdvReac allergy Verified 03/13/22 09:51 (Beta-Adrenergic Bloc immunotherapy tramadol AdvReac headache, Verified 03/13/22 09:51 stiffness Family History Mother Breast cancer Father TIA (transient ischemic attack) Alzheimer disease Hyperlipemia Pacemaker Surgical History H/O thyroidectomy History of delivery History of hip surgery Social History household members: significant other and children current occupational status: employed current occupation: counselor Smoking Status: Never smoker alcohol intake: never substance use type: does not use caffeine: Yes ROS Constitutional Constitutional: Denies fever(s) or night sweats Cardiovascular Cardiovascular: Denies chest pain Genitourinary Genitourinary: Denies hematuria Neurologic Neurologic: Reports abnormal gait Vital Signs Vital Signs Vital Signs: 03/13/22 09:52 03/13/22 10:51 03/13/22 13:00 Temperature 97.8 F 97.5 F L Temperature Source Temporal Temporal Pulse Rate 121 H 72 77 Respiratory Rate 18 16 16 Blood Pressure 103/90 H 106/86 H 117/80 Blood Pressure Mean 94 92 92 Pulse Ox 97 97 97 Oxygen Delivery Method Room Air Room Air Room Air Weight Weight: 85.275 kg Body Mass Index (BMI) 33.3 Physical Exam Const Constitutional Narrative: Obese middle-aged white female transferring from the bedside commode with nursing back to bed, appears fatigued but nontoxic? HEENT HEENT Narrative: Dry mucous membranes, no thrush, Mallampati 2 Eyes Eyes Narrative: No scleral icterus GI non-distended GI Narrative: Mild generalized tenderness, more in the right upper quadrant and lower abdomen. Extremity Extremity Narrative: 2+ pedal pulses Skin Wound Narrative: Significant areas of redness and excoriation with marked skin breakdown to groin and perineal areas. Neuro Neuro Narrative: Skin generalized weakness Psych Psych Narrative: Very pleasant Results Lab / Micro Data Result Diagrams: 03/13/22 10:19 03/13/22 10:19 Labs: Laboratory Results - last 24 hr 03/13/22 10:19: WBC 1.8 L, RBC 3.69 L, Hgb 11.3 L, Hct 33.8 L, MCV 91.6, MCH 30.6, MCHC 33.4, RDW Std Deviation 53.1 H, RDW Coeff of Rosie 17.2 H, Plt Count 103 L, MPV 8.9, Immature Gran % (Auto) 1.700 H, Neut % (Auto) 70.2 H, Lymph % (Auto) 11.8 L, Cook % (Auto) 15.7 H, Eos % (Auto) 0.0, Baso % (Auto) 0.6, Absolute Neuts (auto) 1.3 L, Absolute Lymphs (auto) 0.21 L, Nucleated RBC % 0, Differential Comment , Diff Path Review May foll, Platelet Estimate SLT DEC, RBC Morphology N CHROM, Anisocytosis 1+ 03/13/22 10:19: Sodium 138, Potassium 3.5, Chloride 106, Carbon Dioxide 28.0, Anion Gap 4 L, BUN 13, Creatinine 1.13 H, Estim Creat Clear Calc 49.27, Est GFR (MDRD) Af Amer 66, Est GFR (MDRD) Non-Af 54 L, BUN/Creatinine Ratio 11.5, Glucose 98, Calcium 9.0, Total Bilirubin 0.40, AST 18, ALT 17, Alkaline Phosphatase 52, Total Protein 6.7, Albumin 3.1 L, Globulin 3.6, Albumin/Globulin Ratio 0.9 03/13/22 10:19: Lactic Acid 1.0 03/13/22 11:35: Urine Color SEE COMMENT BELOW, Urine Clarity Sl. Cloudy, Urine pH 6.5, Ur Specific [place] 1.015, Urine Protein 30 H, Urine Glucose (UA) Normal, Urine Ketones Negative, Urine Occult Blood 10 H, Urine Nitrite Positive H, Urine Bilirubin 6 H, Urine Urobilinogen 12 H, Ur Leukocyte Esterase Negative, Urine RBC 0-5 SEEN, Urine WBC 0 SEEN, Ur Squamous Epith Cells 0-5 SEEN, Urine Bacteria 1+, Urine Mucus 0 SEEN Assessment & Plan Assessment/Plan (1) Adult failure to thrive: (2) Diarrhea: (3) Neutropenia: (4) Weakness: (5) Pancytopenia: (6) Dehydration: (7) Cancer of anorectum: (8) Severe malnutrition: PLAN: Plan Failure to thrive -Related to anal cancer and ongoing treatment -Marked weakness over the last 2 weeks with decreased, appetite nausea, near falls -Consult PT/OT -Patient is agreeable to placement at discharge if required Nausea/vomiting -Anticipate this may be related to chemotherapy however unable to rule out gastroenteritis with her home situation -We will start regular diet as patient's had no emesis today -As needed Zofran -Continue to monitor Severe malnutrition -Supplements as ordered -Dietitian consult Pancytopenia -Secondary to bone marrow suppression with chemo and radiation -Repeat counts in a.m. Dehydration -Baseline serum creatinine is 0.7-0.9 -Current serum creatinine is 1.3 -IV fluids -Repeat renal function in a.m. Dysuria -Cultures negative -Discontinue Levaquin -Anticipate this is related to burning and excoriation from radiation -Pyridium initiated History of anal cancer -Chemotherapy completed 03/01/2022 -Radiation completed 03/11/2022 -MRI pending for monitoring -Outpatient follow-up with Dr. Beauchamp after discharge as scheduled Radiation chiang of the perineum -Wound consultation -Continue Silvadene -Continue Aquaphor -Continue on as needed pain medication orally -Would add IV pain medication if needed Hypothyroidism -Check a.m. TSH -Continue home levothyroxine History of asthma -No current issues -Continue home inhaler -Continue home sertraline -Incentive spirometer GERD -Continue home famotidine -Continue home Protonix History of hemorrhoids -Patient has follow-up for treatment to see a surgeon in 3 months after radiation chiang are healed -Continue twice daily MiraLAX as patient needs to off stools to avoid bleeding History of migraine headaches -Continue Maxalt as needed DVT prophylaxis -Enoxaparin -SCDs -CODE STATUS--full code [employer] CL[employer] Student Failure to thrive ? History of anal cancer, diagnosed December 2021 ? Completed chemotherapy 03/01/2022 and radiation 03/11/2022 ? 2-week progression of increased weakness with decreased appetite, nausea, near falls, and now diarrhea ? Given 1 L normal saline bolus in the ED, continue hydration with LR at 75 mL an hour ? Ensure 4 times a day ? Consult PT/OT ? Consult dietitian/nutrition ? Consult case management for anticipated rehabilitation placement Nausea/Diarrhea ? Differentials include viral gastroenteritis, secondary to sick contact, and/or Levaquin therapy ? Patient states baseline stool is always soft with MiraLAX use ? Related abdominal pain improved with morphine in ED ? Zofran as needed for nausea ? Continue home acidophilus Pancytopenia ? Secondary to bone marrow suppression related to chemotherapy and radiation ? Limited historical laboratory data, but all blood counts appear to be decreased from 02/19/2022 CBC ? Protective precautions ? Trend CBCD Dehydration ? Creatinine at 1.13 ? Baseline creatinine 0.7-0.95 ? Hydration with LR ? Avoid nephrotoxins ? Trend BMP History of anal cancer ? Recent completion of both chemotherapy and radiation therapy, as per above ? Radiation chiang to groin and perineal area with bleeding ? Consult wound nurse ? Continue home Aquaphor 3 times daily ? Continue home silver sulfadiazine twice daily ? Continue home oxycodone as needed for pain Dysuria ? Urine culture from 03/10/2022 exhibits no growth ? Discontinue home levofloxacin ? Possibly secondary to radiation therapy/radiation chiang ? Phenazopyridine 3 times daily for dysuria History of hypothyroidism ? Check TSH ? Continue home levothyroxine History of asthma ? Continue home albuterol inhaler as needed ? Continue home cetirizine twice daily ? Encourage incentive spirometer History of GERD ? Continue home famotidine History of hemorrhoids ? Patient requires twice a day MiraLAX to keep stools a soft consistency, as these are very painful ? Patient is to see surgeon in 3 months for treatment, had to complete cancer treatment first ? Continue home MiraLAX GI prophylaxis ? Pantoprazole 40 mg daily DVT prophylaxis ? SCDs ? Lovenox 40 mg subcu daily CODE STATUS ? Full code Charges/Coding Visit Charges Inpatient E&M: 08644 Init Hosp L3 Documented by User: JORGE A CARRASCO 03/13/22 16:50 HPI - General General Date of Admission: 03/13/22 Date of Service: 03/13/22 HPI Narrative ALISHA RICE, is a 52 F who [facility] following referral from her oncologist, Dr. Go, for increased weakness as well as nausea, abdominal and perineal pain, and diarrhea. Patient has history of rectal cancer and just finished radiation therapy on 03/11/2029. Patient also reports internal and external hemorrhoids. For the past 2 weeks, the patient has had nausea treated with alternating Zofran and Phenergan. Last week, Ms. Rice began having spotting from perineal area, believed to be secondary to radiation chiang. She also began to have pain in her groin and perineal area, decreased appetite, weakness, multiple near falls, and lightheadedness. She reports that her boyfriend with whom she lives became ill with nausea/vomiting/diarrhea 4 days ago. On 03/10/2022, patient presented to the emergency department for dysuria and fever. The patient was discharged home with levofloxacin p.o. for UTI. Then last night the patient began having diarrhea. This morning the patient went to see her oncologist, and was sent to the emergency department for admission with goal for rehab placement. On arrival to the emergency department, patient temperature was 97.8, blood pressure 103/90, pulse 121, respirations 18, 97% on room air. Patient's CBC shows white blood cell count of 1.8 with ANC of 1.3, hemoglobin 11.3 with normal MCV, and platelet count 103.? Patient's BMP shows creatinine elevated at 1.13 with normal electrolytes.? Urinalysis is positive for blood, nitrates, and protein; however, no white blood cells or leukocyte esterases present.? In the emergency department, patient was given 1 L normal saline bolus with maintenance at 150 mL an hour. Patient was given morphine and Zofran. Most recent vital signs show blood pressure at 117/80 and heart rate at 77. PFSH Medical History (Updated 03/13/22 @ 18:[address] Selena Corley, DO) Anal cancer Anxiety Asthma Encounter for management of wound VAC External hemorrhoid GERD (gastroesophageal reflux disease) Hypothyroidism Internal hemorrhoid Home Medications Lactobacillus acidophilus 10 mg PO BID 02/19/22 [History Last Taken Unknown] albuterol 90 mcg/actuation aerosol inhaler 90 mcg inhalation Q4H PRN Wheezing 02/19/22 [History Last Taken Unknown] cetirizine 10 mg capsule 10 mg PO BID 02/19/22 [History Last Taken Unknown] cyanocobalamin (vitamin B-12) 25 mcg tablet 50 mcg PO DAILY 02/19/22 [History Last Taken Unknown] ergocalciferol (vitamin D2) 50,000 unit tablet 50,000 unit PO QWEEK 02/19/22 [History Last Taken Unknown] famotidine 20 mg tablet (Pepcid) 20 mg PO QHS 02/19/22 [History Last Taken Unknown] levothyroxine 175 mcg tablet (Synthroid) 175 mcg PO DAILY 02/19/22 [History Last Taken Unknown] magnesium 30 mg tablet mg PO DAILY 02/19/22 [History Last Taken Unknown] pantoprazole 40 mg tablet,delayed release 40 mg PO DAILY 02/19/22 [History Last Taken Unknown] polyethylene glycol 3350 17 gram oral powder packet (Miralax) 17 g PO BID 02/19/22 [History Last Taken Unknown] sumatriptan succinate 100 mg tablet (Imitrex) 100 mg PO Q2H PRN Migraine Headache 02/19/22 [History Last Taken Unknown] triamcinolone acetonide 55 mcg nasal spray aerosol (Nasacort) 2 spray intranasal DAILY 02/19/22 [History Last Taken Unknown] wheat dextrin 3 gram/3.5 gram oral powder 2 packet PO BID 02/19/22 [History Last Taken Unknown] levofloxacin 750 mg tablet 750 mg PO DAILY #9 tabs 03/10/22 [Rx Last Taken Unknown] mineral oil-hydrophil petrolat topical ointment (Aquaphor) 1 applic topical TID 03/13/22 [History Last Taken Unknown] oxycodone 5 mg tablet 5 - 10 mg PO Q3H PRN Pain 03/13/22 [History Last Taken Unknown] silver sulfadiazine 1 % topical cream (Silvadene) 1 applic topical BID 03/13/22 [History Last Taken Unknown] Allergy/AdvReac Type Severity Reaction Status Date / Time Beta-Blockers AdvReac allergy Verified 03/13/22 09:51 (Beta-Adrenergic Bloc immunotherapy tramadol AdvReac headache, Verified 03/13/22 09:51 stiffness Family History Mother Breast cancer Father TIA (transient ischemic attack) Alzheimer disease Hyperlipemia Pacemaker Surgical History H/O thyroidectomy History of delivery History of hip surgery Social History household members: significant other and children current occupational status: employed current occupation: counselor Smoking Status: Never smoker alcohol intake: never substance use type: does not use caffeine: Yes ROS Constitutional Constitutional: Reports anorexia, change in weight, chills, fatigue, malaise, weakness and other Details: Subjective fever Eyes Eyes: Reports blurry vision; Denies change in eye color, change in vision, discharge from eye(s), double vision, erythema, eye pain or loss of vision ENT HEENT: Reports headache(s); Denies abnormal hearing, dysphagia, ear pain, epistaxis, hearing loss, nasal congestion, nasal discharge, post nasal drip, sinus pressure or sore throat Cardiovascular Cardiovascular: Reports chest pain, dyspnea on exertion, edema, lightheadedness and other Details: Intermittent swelling of her feet. ; Denies claudication, orthopnea, palpitations, paroxysmal nocturnal dyspnea, rapid heart rate or syncope Respiratory/Chest Respiratory/Chest: Reports dyspnea and shortness of breath with exertion; Denies cough, excessive phlegm production, hemoptysis, productive cough, shortness of breath at rest or wheezing Gastrointestinal Gastrointestinal: Reports abdominal pain, diarrhea, dyspepsia, loose stools, nausea and other Details: Last episode of vomiting 2 weeks ago. Patient states that she normally takes MiraLAX to keep stools soft due to internal and external hemorrhoids. ; Denies coffee ground emesis, constipation, hematemesis, hematochezia, melena or vomiting Genitourinary Genitourinary: Reports burning urination, genital pain and other Details: Urine has been orange due to Pyridium, but today appears more red. ; Denies difficulty urinating, dysuria, nocturia, urinary frequency, urinary hesitancy, urinary incontinence or urinary urgency Musculoskeletal Musculoskeletal: Reports difficulty walking and muscle weakness; Denies arthralgias, back pain, joint pain, joint stiffness, joint swelling, myalgias or neck pain Neurologic Neurologic: Reports dizziness, headache(s) and tremor(s); Denies abnormal gait, abnormal speech, confusion, disequilibrium, focal weakness, numbness, paresthesias, seizure-like activity, seizures, syncope or tingling Psychiatric Psychiatric: Reports anxiety; Denies depression, homicidal ideation or suicidal ideation Endocrine Endocrinology: Denies change in body appearance, cold intolerance, excessive sweating, heat intolerance, polydipsia or polyuria Hematologic/Lymphatic Hematologic/Lymphatic: Denies anemia, easy bleeding, easy bruising or lymphadenopathy Allergic/Immunologic Allergic/Immunologic: Denies rhinitis, hives, eczemia or asthma Physical Exam Const alert, oriented x3 and no apparent distress Constitutional Narrative: Patient is lying on her right side with cushion under her buttocks.? Appears tired but nontoxic. General Appearance: cooperative HEENT normocephalic, head/scalp atraumatic, hearing grossly normal bilaterally and dentition normal HEENT Narrative: Dry mucous membranes, no thrush. Eyes PERRL, EOMs intact bilaterally and conjunctivae normal Neck no lymphadenopathy, supple, no JVD and no carotid bruits Resp normal respiratory effort, no retractions, no use of accessory muscles and clear to auscultation bilaterally Auscultation: Negative for crackles, rales, rhonchi or wheezes Cardio regular rate, regular rhythm, S1 normal heart sound, S2 normal heart sound, no murmurs and no rub GI normal to inspection, nondistended, normoactive bowel sounds and soft to palpation GI Narrative: Generalized tenderness, more in the right upper quadrant and lower abdomen. Extremity normal to inspection, full ROM and no clubbing, cyanosis or edema Skin General Skin Exam: pallor Wound Narrative: Patient reports redness and excoriation to groin and perineal areas. Neuro oriented x3, CN's II-XII intact bilaterally, moves all extremities and no focal motor deficits Sensorium / Orientation: awake, alert, oriented to person, oriented to place and oriented to time Speech: speech normal Psych affect normal Results Lab / Micro Data Attestation: I reviewed the patient's lab results. Result Diagrams: 03/13/22 10:19 03/13/22 10:19 Assessment & Plan Assessment/Plan (1) Adult failure to thrive: (2) Diarrhea: (3) Neutropenia: (4) Weakness: (5) Pancytopenia: (6) Dehydration: (7) Cancer of anorectum: (8) Severe malnutrition: PLAN: Plan Failure to thrive ? History of anal cancer, diagnosed December 2021 ? Completed chemotherapy 03/01/2022 and radiation 03/11/2022 ? 2-week progression of increased weakness with decreased appetite, nausea, near falls, and now diarrhea ? Given 1 L normal saline bolus in the ED, continue hydration with LR at 75 mL an hour ? Ensure 4 times a day ? Consult PT/OT ? Consult dietitian/nutrition ? Consult case management for anticipated rehabilitation placement Nausea/Diarrhea ? Differentials include viral gastroenteritis, secondary to sick contact, and/or Levaquin therapy ? Patient states baseline stool is always soft with MiraLAX use ? Related abdominal pain improved with morphine in ED ? Zofran as needed for nausea ? Continue home acidophilus Pancytopenia ? Secondary to bone marrow suppression related to chemotherapy and radiation ? Limited historical laboratory data, but all blood counts appear to be dec reased from 02/19/2022 CBC ? Protective precautions ? Trend CBCD Dehydration ? Creatinine at 1.13 ? Baseline creatinine 0.7-0.95 ? Hydration with LR ? Avoid nephrotoxins ? Trend BMP History of anal cancer ? Recent completion of both chemotherapy and radiation therapy, as per above ? Radiation chiang to groin and perineal area with bleeding ? Consult wound nurse ? Continue home Aquaphor 3 times daily ? Continue home silver sulfadiazine twice daily ? Continue home oxycodone as needed for pain Dysuria ? Urine culture from 03/10/2022 exhibits no growth ? Discontinue home levofloxacin ? Possibly secondary to radiation therapy/radiation chiang ? Phenazopyridine 3 times daily for dysuria History of hypothyroidism ? Check TSH ? Continue home levothyroxine History of asthma ? Continue home albuterol inhaler as needed ? Continue home cetirizine twice daily ? Encourage incentive spirometer History of GERD ? Continue home famotidine History of hemorrhoids ? Patient requires twice a day MiraLAX to keep stools a soft consistency, as these are very painful ? Patient is to see surgeon in 3 months for treatment, had to complete cancer treatment first ? Continue home MiraLAX GI prophylaxis ? Pantoprazole 40 mg daily DVT prophylaxis ? SCDs ? Lovenox 40 mg subcu daily CODE STATUS ? Full code
[2022-03-13 14:21] VITALS: BP 111/72; PULSE 75; RESP 16; TEMP 36.7; O2SAT 96
[2022-03-13 14:23] VITALS: BMI 33.8
[2022-03-13] MEDS: Acetaminophen 325 MG Tablet 650 MG PO ×2 (15:09→22:14)
[2022-03-13] MEDS: oxyCODONE 5 MG Tablet PO ×3 (15:09→22:14)
[2022-03-13] MEDS: Lactated Ringers 1,000 ML 75 ML IV (15:09)
[2022-03-13] MEDS: Phenazopyridine 95 MG Tablet 190 MG PO ×2 (15:55→21:47)
--- NOTE | 2022-03-13 16:11 | CASEMGMT ---
Social Work SW met w/pt and pt's mother briefly in room in regard to discharge plan. Pt is stating needs to go somewhere for rehab, her boyfriend is sick at home and cannot care for her. SW gave pt a list of fdc facilities in pt's preferred geographic area, complete with quality and resource use data, that takes pt's insurance. Pt asked about TCU, SW explained did check but they have no beds. SW explained to pt and mother they can review the list and SW will be back in the morning to talk with them further. SW will continue to follow. KITTY Loomis
[2022-03-13 17:03] VITALS: O2SAT 97
[2022-03-13] MEDS: 0.9% Saline Lock 10 ML Syringe IV (18:48)
[2022-03-13 20:12] VITALS: BP 99/59; PULSE 75; RESP 14; TEMP 37; O2SAT 96
[2022-03-13] MEDS: Loratadine 10 MG Tablet PO (21:48)
[2022-03-13] MEDS: Famotidine 20 MG Tablet PO (21:48)
[2022-03-14] MEDS: oxyCODONE 5 MG Tablet PO ×6 (01:23→19:07)
[2022-03-14 02:15] VITALS: BP 104/68; PULSE 88; RESP 16; TEMP 36.6; O2SAT 96
[2022-03-14] MEDS: proMETHazine 25 MG Tablet 12.5 MG PO ×2 (04:54→11:29)
[2022-03-14 05:32] LABS: Absolute Lymphocyte Count 0.22 X10^3/uL (0.83-4.51); Absolute Neutrophil Count 1.7 X10^3/uL (2.0-7.7); Basophil# 0.01 X10^3/uL; Basophil% 0.5 % (0-1); Hemoglobin 9.8 g/dL (12.0-15.0); Lymphocyte # 0.22 X10^3/ul (0.83-4.51); Lymphocyte % 10.1 % (19-41); Mean Corp Hgb Conc 32.7 g/dL (32-36); Mean Corpuscular Hgb 30.2 pg (27.0-32.0); Mean Corpuscular Volume 92.6 fL (81-99); Mean Platelet Vol. 8.8 fl (6.2-12.0); Monocyte# 0.25 X10^3/uL; Monocyte% 11.5 % (0-10); NRBC Flagged by Analyzer 0 % (0-5); Neutrophil # 1.67 X10^3/uL (2.7-7.7); POSITIVE DIFFERENTIAL YES; Platelet Count 115 K/mm3 (150-450); RBC Distribution Width SD 53.5 fl (35.1-43.9); Red Blood Count 3.24 M/mm3 (4.2-5.4); White Blood Count 2.2 K/mm3 (4.4-11.0)
[2022-03-14 05:33] LABS: Differential Indicated SCAN CRITERIA MET
[2022-03-14 05:56] LABS: Anisocytosis 1+; Platelet Estimate SLT DEC (ADEQ)
[2022-03-14 06:04] LABS: Anion Gap 6 (5-15); BUN 9 mg/dL (7-18); BUN/Creat Ratio 11.5 RATIO (10-20); Calcium,Total 7.9 mg/dL (8.5-10.1); Chloride 108 mmol/L (98-107); Creatinine, Serum 0.79 mg/dL (0.55-1.02); EST Glomerular Filtration Rate 82 mL/min (>60); Est Glom Filt Rate - Afr Amer 100 mL/min (>60); Estimated Creatinine Clearance 70.47 ml/min; Glucose 88 mg/dL (74-106); Magnesium 2.2 mg/dL (1.6-2.6); Sodium Level 142 mmol/L (136-145)
[2022-03-14] MEDS: Levothyroxine 175 MCG Tablet PO (06:04)
[2022-03-14] MEDS: Phenazopyridine 95 MG Tablet 190 MG PO ×3 (06:05→20:13)
[2022-03-14 07:23] VITALS: O2SAT 94
[2022-03-14 08:05] VITALS: BP 108/72; PULSE 75; RESP 16; TEMP 36.6; O2SAT 97
[2022-03-14] MEDS: Potassium Chloride Oral Tablet 20 MEQ 60 MEQ PO (08:16)
--- NOTE | 2022-03-14 09:44 | CASEMGMT ---
Social Work SW met w/pt again this morning to review prior level of function and anticipated discharge plan. PCP: SALINAS Martins w/[facility] Specialists: GI: Dr. August, Radiation/Oncology: Dr. Go and Dr. Corley. Neurology: She just started seeing a neurologist but cannot recall the name Insurance: [facility] Pharmacy: [facility]: Mother, sisters, significant other Living arrangements/prior level of function: Pt lives with significant other Mary Lou Chakraborty([facility]es [facility]). They have been together for 20 years. She lives in a two story home with a flight of stairs. Normally she is fully independent and able to get up the stairs. However, pt started treatment for cancer 6 weeks ago and has been getting progressively weaker. At present, her significant other is sick at home with the flu or food poisoning and cannot help her. LW/POA: Pt has not completed these documents, is interested in additional information. Support: We spoke about the difficulty of pt's recent diagnosis. Pt states has very supportive family and friends. Pt's mother was here yesterday and she is supportive. Pt states has sisters and a cousin as supports as well as Mary Lou. Pt declined referrals for counseling at this time. DME/HHC/SNF: None prior, pt has never needed any DME, no home health or SNF Plan: SNF at discharge. Pt states would like to go somewhere that has good wound care. SW will continue to follow, plan is to call facilities that take pt's insurance to ask about wound care, and then go back to review w/pt along w/LW and POA forms. KITTY Loomis
--- NOTE | 2022-03-14 10:32 | CASEMGMT ---
Social Work Discharge material requirements planning manager Rochelle called the four closest facilities that take pt's insurance to find out about their wound healing care: [facility]: They have a wound care nurse five days per week and a wound doctor come in once per week. [facility]: They have a wound care nurse four days per week and a wound doctor come in once per week. [facility]: Messages left. SW went in and gave pt this information. Pt's sister is in now, and pt is not feeling well. SW also brought in LW/POA papers, pt not up for reviewing at this time. SW left papers for pt and let her know if she feels up for it later SW will review with her. SW will continue to follow. KITTY Loomis
[2022-03-14] MEDS: Pantoprazole Sodium 40 MG Tablet PO (11:07)
[2022-03-14] MEDS: Loratadine 10 MG Tablet PO ×2 (11:07→20:13)
[2022-03-14] MEDS: Fluticasone 0.05% 1 SPRAY NASAL.SRY 2 SPRAY NASAL (11:08)
[2022-03-14] MEDS: Enoxaparin 40 MG/0.4 ML Syringe SC (11:08)
[2022-03-14] MEDS: Polyethylene Glycol 3350 17 GM PACKET PO ×2 (11:14→20:14)
--- NOTE | 2022-03-14 12:03 | CASEMGMT ---
Social Work SW spoke w/pt again in regard to where she would like a referral sent. She would like a referral sent to [facility]. SW also spoke w/pt about palliative care, gave her a brochure. SW let her know if she would like to have a referral made to palliative, to let SW know. Referral will be sent to [facility] shortly. KITTY Loomis
[2022-03-14 12:30] VITALS: BP 109/70; PULSE 88; RESP 18; TEMP 36.6; O2SAT 96
--- NOTE | 2022-03-14 12:33 | CASEMGMT ---
Discharge Technical Sales Manager Discharge Technical Sales Manager called the following Home Health Agencies: [facility]: Not in network [facility]: Is not servicing the area. [facility]: Could not get an answer [facility]: Not in Network [facility]: Has no nursing staff Referral sent to [facility]. Waiting for response. Will follow up. Rochelle Sampson Discharge Technical Sales Manager
--- NOTE | 2022-03-14 13:11 | CASEMGMT ---
Discharge Oil Distributor Tender Called Karely at [facility]. Beds are available. Faxed over referral. Will follow up. Rochelle Sampson Discharge Oil Distributor Tender
--- NOTE | 2022-03-14 13:28 | CASEMGMT ---
Discharge Assembler Filters [facility] can accept patient. GREG Gardiner has been notified. Rochelle Sampson Discharge Assembler Filters
[2022-03-14] MEDS: Rizatriptan Benzoate 5 MG Tablet PO ×2 (13:55→20:12)
[2022-03-14] MEDS: Ondansetron 4 MG/2 ML Vial IV (13:55)
[2022-03-14] MEDS: 0.9% Saline Lock 10 ML Syringe IV ×2 (13:55→20:25)
--- NOTE | 2022-03-14 14:02 | CASEMGMT ---
Social Work Pt is accepted at [facility], and they will start precert. SW let pt know, let pt's mother and sister who are in the room know as well. SW will continue to follow. KITTY Loomis
--- NOTE | 2022-03-14 14:30 | PCM.PN.HOSP ---
Subjective Subjective Patient states she had a restless night secondary to the pain in her perineum. She states the Oxy helps but does not last very long. Otherwise she states she is feeling well. Patient has been accepted at [facility] and we are now awaiting pre-CERT. Objective Data Objective Data Vital Signs: Vital Signs Temp Pulse Resp BP Pulse Ox O2 Del Method 97.9 F 75 16 108/72 97 Room Air 03/14/22 08:05 03/14/22 08:05 03/14/22 08:05 03/14/22 08:05 03/14/22 08:05 03/14/22 08:17 Oxygen Delivery Method Room Air Weight: 86.6 kg Body Mass Index (BMI) 33.8 Intake & Output: Intake and Output for Last 24 Hours 03/12/22 03/13/22 03/14/22 23:59 23:59 23:59 Intake Total 2247 / 2247 1750 / 1750 Output Total 1575 / 1575 1275 / 1275 Balance 672 / 672 475 / 475 Lab / Micro Data Result Diagrams: 03/14/22 04:53 03/14/22 04:53 Labs: Laboratory Results - last 24 hr 03/14/22 04:53: WBC 2.2 L, RBC 3.24 L, Hgb 9.8 L, Hct 30.0 L, MCV 92.6, MCH 30.2, MCHC 32.7, RDW Std Deviation 53.5 H, RDW Coeff of Rosie 17.0 H, Plt Count 115 L, MPV 8.8, Immature Gran % (Auto) 0.900, Neut % (Auto) 77.0 H, Lymph % (Auto) 10.1 L, [place] % (Auto) 11.5 H, Eos % (Auto) 0.0, Baso % (Auto) 0.5, Absolute Neuts (auto) 1.7 L, Absolute Lymphs (auto) 0.22 L, Nucleated RBC % 0, Diff Path Review January foll, Platelet Estimate SLT DEC, Anisocytosis 1+ 03/14/22 04:53: Sodium 142, Potassium 3.0 L, Chloride 108 H, Carbon Dioxide 28.0, Anion Gap 6, BUN 9, Creatinine 0.79, Estim Creat Clear Calc 70.47, Est GFR (MDRD) Af Amer 100, Est GFR (MDRD) Non-Af 82, BUN/Creatinine Ratio 11.5, Glucose 88, Calcium 7.9 L, Phosphorus 4.0, Magnesium 2.2, TSH 32.80 H Physical Exam Const alert, oriented x3 and healthy appearing Constitutional Narrative: Obese middle-aged white female lying in bed, appears mildly uncomfortable however nontoxic, very pleasant? HEENT head/scalp atraumatic and moist oral mucous membranes HEENT Narrative: Mallampati 2-3, no thrush Resp normal respiratory effort, no retractions, no use of accessory muscles and clear to auscultation bilaterally Auscultation: Negative for crackles, rales, rhonchi or wheezes Cardio regular rate, regular rhythm, S1 normal heart sound, S2 normal heart sound, no murmurs, no rub, no gallops, no clicks and no JVD GI normal to inspection, nondistended, normoactive bowel sounds, soft to palpation, non-tender and non-distended Extremity no clubbing, cyanosis or edema Extremity Narrative: 2+ pedal pulses Neuro oriented x3, CN's II-XII intact bilaterally, moves all extremities and no focal motor deficits Neuro Narrative: generalized weakness Sensorium / Orientation: awake and alert Speech: speech normal Psych affect normal Psych Narrative: Very pleasant Assessment & Plan Assessment/Plan (1) Adult failure to thrive: (2) Diarrhea: (3) Neutropenia: (4) Weakness: (5) Pancytopenia: (6) Dehydration: (7) Cancer of anorectum: (8) Severe malnutrition: PLAN: Plan Failure to thrive -Related to anal cancer and ongoing treatment -Marked weakness over the last 2 weeks with decreased, appetite nausea, near falls -PT and OT following -Patient has except been accepted at [facility] and plan is for her to discharge there once pre-CERT is obtained Nausea/vomiting -Anticipate this may be related to chemotherapy however unable to rule out gastroenteritis with her home situation -Improved -As needed Zofran -Continue to monitor Hypokalemia -40 mill equivalents p.o. potassium ordered -Repeat in a.m. Severe malnutrition -Supplements as ordered -Dietitian following Pancytopenia -Secondary to bone marrow suppression with chemo and radiation -Repeat counts in a.m. Dehydration -Resolved Dysuria -Cultures negative -Discontinue Levaquin -Anticipate this is related to burning and excoriation from radiation -Pyridium initiated History of anal cancer -Chemotherapy completed 03/01/2022 -Radiation completed 03/11/2022 -MRI pending for monitoring -Outpatient follow-up with Dr. Beauchamp after discharge as scheduled Radiation chiang of the perineum -Wound care is following -Continue Silvadene -Continue Aquaphor -Add oxycodone 10 mg controlled release -Add gabapentin 300 mg 3 times daily -Add topical lidocaine gel Hypothyroidism -TSH is elevated at 32.8 -Continue home levothyroxine--> may need to increase dose depending on compliance History of asthma -No current issues -Continue home inhaler -Continue home sertraline -Incentive spirometer GERD -Continue home famotidine -Continue home Protonix History of hemorrhoids -Patient has follow-up for treatment to see a surgeon in 3 months after radiation chiang are healed -Continue twice daily MiraLAX as patient needs to off stools to avoid bleeding History of migraine headaches -Continue Maxalt as needed DVT prophylaxis -Enoxaparin -SCDs -CODE STATUS--full code Charges/Coding Visit Charges Inpatient E&M: 12919 Subs Hosp L2
[2022-03-14] MEDS: Gabapentin 300 MG Capsule PO (19:07)
[2022-03-14 19:13] VITALS: BP 106/72; PULSE 98; RESP 16; TEMP 37.2; O2SAT 98
[2022-03-14] MEDS: Famotidine 20 MG Tablet PO (20:15)
[2022-03-14] MEDS: oxyCODONE HCl Cr 10 MG Tablet PO (23:03)
[2022-03-15] VITALS (10 sets, daily range): BP systolic 92–116; BP diastolic 66–82; PULSE 88–103; RESP 16–18; TEMP 36.7–37.1; O2SAT 86–96
[2022-03-15] MEDS: oxyCODONE 5 MG Tablet PO ×3 (01:11→11:08)
[2022-03-15 05:26] LABS: Anion Gap 9 (5-15); BUN 9 mg/dL (7-18); BUN/Creat Ratio 11.4 RATIO (10-20); Calcium,Total 8.5 mg/dL (8.5-10.1); Chloride 104 mmol/L (98-107); Creatinine, Serum 0.79 mg/dL (0.55-1.02); EST Glomerular Filtration Rate 82 mL/min (>60); Est Glom Filt Rate - Afr Amer 99 mL/min (>60); Estimated Creatinine Clearance 70.47 ml/min; Glucose 110 mg/dL (74-106); Potassium 3.5 mmol/L (3.5-5.1); Sodium Level 138 mmol/L (136-145)
[2022-03-15] MEDS: Phenazopyridine 95 MG Tablet 190 MG PO (06:58)
[2022-03-15] MEDS: Levothyroxine 175 MCG Tablet PO (06:59)
[2022-03-15] MEDS: Gabapentin 300 MG Capsule PO ×2 (08:58→16:51)
--- NOTE | 2022-03-15 09:38 | CASEMGMT ---
Social Work TCU now has a bed available and can take pt. SW spoke w/pt, she would prefer TCU to [facility]. SW called [facility], message left to stop the precert process, and TCU is going to start the precert process. GREG will continue to follow. KITTY Loomis
[2022-03-15 10:05] LABS: Pathologist Review Reviewed
[2022-03-15 10:05] LABS: Pathologist Review Reviewed
[2022-03-15] MEDS: Fluticasone 0.05% 1 SPRAY NASAL.SRY 2 SPRAY NASAL (10:07)
[2022-03-15] MEDS: Polyethylene Glycol 3350 17 GM PACKET PO (10:07)
[2022-03-15] MEDS: Enoxaparin 40 MG/0.4 ML Syringe SC (10:07)
[2022-03-15] MEDS: Loratadine 10 MG Tablet PO (10:08)
[2022-03-15] MEDS: Pantoprazole Sodium 40 MG Tablet PO (10:08)
[2022-03-15] MEDS: oxyCODONE HCl Cr 10 MG Tablet PO (10:08)
--- NOTE | 2022-03-15 11:50 | CASEMGMT ---
Addendum entered by Zuleyka Allred 03/15/22 13:45: Social Work Discharge instructions faxed to TCU. Pt to TCU today, skilled level of care. KITTY Loomis Original Note: Social Work Pt was approved by insurance to go to TCU today. SW notified physician and pt. KITTY Loomis
--- NOTE | 2022-03-15 12:06 | WOUNDNOTE ---
In to reassess the radiation chiang to the hien anal area, groin, and labia. there is still some mild bleeding noted from the hien anal area. patient states the lidocaine has helped quite a bit. there is some mild improvement noted. patient states she is able to get around much better now since the pain is better controlled. pt will be going to TCU before returning home so this nurse will check in on patient over there. pt denies further needs at this time. sister is present at bedside.
--- NOTE | 2022-03-15 12:23 | DS.PCM_ITS ---
Providers Date of Admission: 03/13/22 Date of Discharge: 03/15/22 Primary Care Physician: SALINAS Avila Consultations 03/13/22 14:10 Consult: Onc/Wound/furnace repairer helper Routine Comment: Reason For Visit: DEBILITY Diagnosis Discharge Diagnosis (1) Adult failure to thrive: Status: Acute Code(s): R62.7 - Adult failure to thrive (2) Diarrhea: Status: Acute Code(s): R19.7 - Diarrhea, unspecified (3) Neutropenia: Status: Acute Code(s): D70.9 - Neutropenia, unspecified (4) Weakness: Status: Acute Code(s): R53.1 - Weakness (5) Pancytopenia: Status: Acute Code(s): D61.818 - Other pancytopenia (6) Dehydration: Status: Acute Code(s): E86.0 - Dehydration (7) Cancer of anorectum: Status: Acute Code(s): C21.8 - Malignant neoplasm of overlapping sites of rectum, anus and anal canal (8) Severe malnutrition: Status: Acute Code(s): E43 - Unspecified severe protein-calorie malnutrition Medications at Discharge Home Medications Lactobacillus acidophilus 10 mg PO BID 02/19/22 albuterol 90 mcg/actuation aerosol inhaler 90 mcg inhalation Q4H PRN Wheezing 0 02/19/22 cetirizine 10 mg capsule 10 mg PO BID 02/19/22 cyanocobalamin (vitamin B-12) 25 mcg tablet 50 mcg PO DAILY 02/19/22 ergocalciferol (vitamin D2) 50,000 unit tablet 50,000 unit PO QWEEK 02/19/22 famotidine 20 mg tablet (Pepcid) 20 mg PO QHS 02/19/22 levothyroxine 175 mcg tablet (Synthroid) 175 mcg PO DAILY 02/19/22 magnesium 30 mg tablet mg PO DAILY 02/19/22 pantoprazole 40 mg tablet,delayed release 40 mg PO DAILY 02/19/22 polyethylene glycol 3350 17 gram oral powder packet (Miralax) 17 g PO BID 02/19/22 sumatriptan succinate 100 mg tablet (Imitrex) 100 mg PO Q2H PRN Migraine He adache 02/19/22 triamcinolone acetonide 55 mcg nasal spray aerosol (Nasacort) 2 spray intranasal DAILY 02/19/22 wheat dextrin 3 gram/3.5 gram oral powder 2 packet PO BID 02/19/22 levofloxacin 750 mg tablet 750 mg PO DAILY #9 tabs 03/10/22 silver sulfadiazine 1 % topical cream (Silvadene) 1 applic topical BID 03/13/22 acetaminophen 325 mg tablet (Tylenol) 650 mg PO Q6H PRN PRN Pain Score 1-10/Temp > 100.7 F #0 tabs 03/15/22 enoxaparin 40 mg/0.4 mL subcutaneous syringe 40 mg (0.4 mL) subcut DAILY #0 mL 03/15/22 food supplemt, lactose-reduced 0.08 gram-1.5 kcal/mL oral liquid (Ensure Enlive) 120 ml PO 4X/DAY #0 mL 03/15/22 gabapentin 300 mg capsule 300 mg PO BIDCM #0 caps 03/15/22 lidocaine HCl 2 % mucosal jelly 1 tube topical Q6 #0 mL 03/15/22 oxycodone 10 mg tablet,crush resistant,extended release 12 hr (OxyContin) 10 mg PO BID 1 day #2 tabs 03/15/22 oxycodone 5 mg tablet 5 - 10 mg PO Q6H 1 day #4 tabs 03/15/22 Hospital Course Operations None Procedures None Summary of Care Provided Minutes Spent on Discharge: 38 Hospital Course: Mrs. Hernandez is a 52-year-old white female who presented to the emergency departm ent at [facility] on 03/13/2022 at the instruction of her oncologist Dr. Go. She saw Dr. Go at his office on the day of presentation at which time she was complaining of increased weakness as well as nausea, abdominal pain, vomiting, perianal pain and loose stool. She has a history of rectal cancer for which she has been undergoing chemo and radiation. She finished her last radiation treatment on 03/11/2022. She noted for the past 2 weeks has been having some nausea and been treating it with Zofran alternating with Phenergan and having fairly good success. She also had some spotting in the perianal area related to severe radiation chiang and rectal hemorrhoids. She had been living with her boyfriend and he had been helping her although he became ill and is currently unable to help any further. On 03/10/2022 she presented to the emergency department with dysuria and fever. Her UA did not appear consistent with infection and her culture was negative therefore we dis continued the Levaquin that was started at that time. In the emergency department her temperature was 97.8, blood pressure 103/90, pulse 121, respiration rate 18, and oxygen saturations were 97% on room air.? Her CBC shows pancytopenia with an absolute neutrophil count of 1.3.? Her BMP shows a mildly elevated creatinine of 1.13 with normal electrolytes.? Her urinalysis is positive for blood and nitrites and protein however no white cells or leukoesterase is present.? She has 1+ bacteria. She was admitted to the medical floor and started on IV fluids, antiemetics, and pain medications. Physical and Occupational Therapy have seen the patient and deemed that she is appropriate for rehab placement. Wound care has been following her for her radiation chiang to her perineum and we have successfully been able to decrease her pain dramatically with the addition of gabapentin, controlled release oxycodone along with immediate release oxycodone as well as topical lidocaine gel. She indicated this morning, the day of discharge, that she has had significantly less pain and was able to sleep 3 hours through the night which she has not been able to do for sometime. We did a obtain a TSH during her hospitalization given her increased fatigue and we found that her TSH was elevated at 32. She is on chronic Synthroid and we increased her dose from 175 mg daily to 200 mg daily. She will need a follow-up TSH in 6 weeks for reassessment. She was accepted at the transitional care unit for discharge. She was able to be discharged to transitional care unit in stable condition on 03/15/2022. She is to follow-up with her primary care physician in 4 weeks. Discharge diagnoses: Failure to thrive Nausea/vomiting-resolved Hypokalemia-resolved Severe malnutrition Pancytopenia Dehydration-resolved Dysuria History of anal cancer Radiation chiang to the perineum Hypothyroidism History of asthma GERD History of hemorrhoids History of migraine headaches Physical Exam Const alert, oriented x3, no apparent distress and no limitations Constitutional Narrative: Obese, middle-aged white female lying in bed, appears comfortable nontoxic, watching television General Appearance: cooperative, comfortable, well kempt and well developed Orientation / Consciousness: awake Exam Limitations: no limitations Nutritional Appearance: obese HEENT normocephalic, head/scalp atraumatic, hearing grossly normal bilaterally and moist oral mucous membranes HEENT Narrative: Mallampati 2-3, no thrush Eyes PERRL, EOMs intact bilaterally and conjunctivae normal Eyes Narrative: No scleral icterus Neck no lymphadenopathy, supple, no JVD and no carotid bruits Neck Narrative: Trachea midline, no thyroid enlargement Resp normal respiratory effort, no retractions, no use of accessory muscles and clear to auscultation bilaterally Auscultation: Negative for crackles, rales, rhonchi or wheezes Cardio regular rate, regular rhythm, S1 normal heart sound, S2 normal heart sound, no murmurs, no rub, no gallops, no clicks and no JVD GI normal to inspection, nondistended, normoactive bowel sounds, soft to palpation, non-tender and non-distended Extremity no clubbing, cyanosis or edema Skin no rashes or lesions noted, no wounds, skin turgor normal and no jaundice Neuro oriented x3, CN's II-XII intact bilaterally, moves all extremities and no focal motor deficits Sensorium / Orientation: awake and alert Psych affect normal Weight / BMI Weight Weight: 86.6 kg Body Mass Index (BMI) 33.8 ABG / Lab / Microbiology Data Result Diagrams: 03/14/22 04:53 03/15/22 04:17 Laboratory: Laboratory Results - last 24 hr 03/13/22 10:19: Diff Path Review Reviewed 03/14/22 04:53: Diff Path Review Reviewed 03/15/22 04:17: Sodium 138, Potassium 3.5, Chloride 104, Carbon Dioxide 25.0, Anion Gap 9, BUN 9, Creatinine 0.79, Estim Creat Clear Calc 70.47, Est GFR (MDRD) Af Amer 99, Est GFR (MDRD) Non-Af 82, BUN/Creatinine Ratio 11.4, Glucose 110 H, Calcium 8.5 Meaningful Use Info Meaningful Use Diagnoses (Choose all that apply): None applicable Discharge Plan Admission Admit Date/Time: 03/13/22 13:09 Primary Reason for Your Visit: Generalized weakness/radiation chiang Attending Provider: Selena Corley Primary Care Provider: Nicole Bailey Instructions Additional Instructions / Restrictions: 1. You will need a follow-up TSH to reassess your thyroid function in 6 weeks Discharge Orders/Prescriptions Prescriptions: New Ensure Enlive 0.08 gram-1.5 kcal/mL Liquid 120 ml PO 4X/DAY Qty: 0 0RF gabapentin 300 mg Capsule 300 mg PO BIDCM Qty: 0 0RF lidocaine HCl 2 % Jelly 1 tube topical Q6 Qty: 0 0RF Protocol: *Topical Application Instructions APPLICATION INSTRUCTIONS: To perineum oxycodone [OxyContin] 10 mg Tablet,Oral Only,Ext.Rel.12 Hr 10 mg PO BID 1 Days Qty: 2 0RF acetaminophen [Tylenol] 325 mg Tablet 650 mg PO Q6H PRN PRN (Reason: Pain Score 1-10/Temp > 100.7 F) Qty: 0 0RF enoxaparin 40 mg/0.4 mL Syringe 40 mg subcut DAILY Qty: 0 0RF Continued levothyroxine [Synthroid] 175 mcg Tablet 175 mcg PO DAILY polyethylene glycol 3350 [Miralax] 17 gram Powder In Packet 17 g PO BID sumatriptan succinate [Imitrex] 100 mg Tablet 100 mg PO Q2H PRN (Reason: Migraine Headache) ergocalciferol (vitamin D2) 50,000 unit Tablet 50,000 unit PO QWEEK famotidine [Pepcid] 20 mg Tablet 20 mg PO QHS pantoprazole 40 mg Tablet,Delayed Release (Dr/Ec) 40 mg PO DAILY triamcinolone acetonide [Nasacort] 55 mcg Aerosol,[place] 2 spray INTRANASAL DAILY albuterol 90 mcg/actuation Aerosol 90 mcg INHALATION Q4H PRN (Reason: Wheezing) Lactobacillus acidophilus Capsule 10 mg PO BID magnesium 30 mg Tablet PO DAILY cyanocobalamin (vitamin B-12) 25 mcg Tablet 50 mcg PO DAILY wheat dextrin 3 gram/3.5 gram Powder 2 packet PO BID cetirizine 10 mg Capsule 10 mg PO BID levofloxacin 750 mg tablet 750 mg PO DAILY Qty: 9 0RF Rx Instructions: next dose 03/11/22 silver sulfadiazine [Silvadene] 1 % Cream 1 applic TOPICAL BID Rx Instructions: apply a 1.5 mm thickness Changed oxycodone 5 mg Tablet 5 - 10 mg PO Q6H 1 Days Qty: 4 0RF Discontinued Aquaphor Ointment 1 applic TOPICAL TID Referrals / Follow Up: Nicole Bailey PA [Primary Care Provider] - Within 1 Month Disposition Disposition (needs filled in before D/C Order can be placed): [facility] Facility Charges/Coding Visit Charges Inpatient E&M: 62830 SNF Disch >30 Min
--- NOTE | 2022-03-15 12:54 | TREXTCAR_ITS ---
Diet Diet Order/Speech Therapy: 03/13/22 14:10 Diet: Regular - General Food consistency:: Regular Liquid Consistency:: Regular/Thin Routine Orders/Code Status Change Mcclain Catheter: monthly O2 Liters per Minute: 2 QHS and prn Routine Lab Work: CBC (Weekly), BMP (Weekly) and - (TSH in 6 weeks) Code Status: Full Code Wound(s) b/l groin: Wound Type: radiation chiang perianal: Wound Type: radiation chiang labia: Wound Type: radiation chiang Suggestions for Active Care Change Position every (hours): 2 Therapies Weight Bearing: Full weight bearing Physical Therapy: Eval and Treat Occupational Therapy: Eval and Treat Problem/Diagnosis (1) Adult failure to thrive: Status: Acute Code(s): R62.7 - Adult failure to thrive (2) Diarrhea: Status: Acute Code(s): R19.7 - Diarrhea, unspecified (3) Neutropenia: Status: Acute Code(s): D70.9 - Neutropenia, unspecified (4) Weakness: Status: Acute Code(s): R53.1 - Weakness (5) Pancytopenia: Status: Acute Code(s): D61.818 - Other pancytopenia (6) Dehydration: Status: Acute Code(s): E86.0 - Dehydration (7) Cancer of anorectum: Status: Acute Code(s): C21.8 - Malignant neoplasm of overlapping sites of rectum, anus and anal canal (8) Severe malnutrition: Status: Acute Code(s): E43 - Unspecified severe protein-calorie malnutrition Allergies/Procedures Done in Hospital Allergies Beta-Blockers (Beta-Adrenergic Bloc Adverse Reaction (Verified 03/13/22 09:51) allergy immunotherapy Per Dr. Go Avoid use of beta-blockers while patient is on allergy immunotherapy tramadol Adverse Reaction (Verified 03/13/22 09:51) headache, stiffness Procedures: None Type of Care/Length of Stay Estimated LOS: Convalescent Care Less Than 30 days Type of Care Needed: Skilled Rehab Potential: Good Prognosis: Good Additional Orders/Day of Discharge Day of Discharge: 03/15/22 Dietary and Speech Recommendations Dietitian Recommendations/Changes: Continue Regular diet. Will add Ensure Enlive (chocolate) 120mL 4x daily with medpass. Discharge Plan Admission Admit Date/Time: 03/13/22 13:09 Primary Reason for Your Visit: Generalized weakness/radiation chiang Attending Provider: Selena Corley Primary Care Provider: Nicole Bailey Instructions Additional Instructions / Restrictions: 1. You will need a follow-up TSH to reassess your thyroid function in 6 weeks Discharge Orders/Prescriptions Prescriptions: New Ensure Enlive 0.08 gram-1.5 kcal/mL Liquid 120 ml PO 4X/DAY Qty: 0 0RF gabapentin 300 mg Capsule 300 mg PO BIDCM Qty: 0 0RF lidocaine HCl 2 % Jelly 1 tube topical Q6 Qty: 0 0RF Protocol: *Topical Application Instructions APPLICATION INSTRUCTIONS: To perineum oxycodone [OxyContin] 10 mg Tablet,Oral Only,Ext.Rel.12 Hr 10 mg PO BID 1 Days Qty: 2 0RF acetaminophen [Tylenol] 325 mg Tablet 650 mg PO Q6H PRN PRN (Reason: Pain Score 1-10/Temp > 100.7 F) Qty: 0 0RF enoxaparin 40 mg/0.4 mL Syringe 40 mg subcut DAILY Qty: 0 0RF Continued levothyroxine [Synthroid] 175 mcg Tablet 175 mcg PO DAILY polyethylene glycol 3350 [Miralax] 17 gram Powder In Packet 17 g PO BID sumatriptan succinate [Imitrex] 100 mg Tablet 100 mg PO Q2H PRN (Reason: Migraine Headache) ergocalciferol (vitamin D2) 50,000 unit Tablet 50,000 unit PO QWEEK famotidine [Pepcid] 20 mg Tablet 20 mg PO QHS pantoprazole 40 mg Tablet,Delayed Release (Dr/Ec) 40 mg PO DAILY triamcinolone acetonide [Nasacort] 55 mcg Aerosol,[place] 2 spray INTRANASAL DAILY albuterol 90 mcg/actuation Aerosol 90 mcg INHALATION Q4H PRN (Reason: Wheezing) Lactobacillus acidophilus Capsule 10 mg PO BID magnesium 30 mg Tablet PO DAILY cyanocobalamin (vitamin B-12) 25 mcg Tablet 50 mcg PO DAILY wheat dextrin 3 gram/3.5 gram Powder 2 packet PO BID cetirizine 10 mg Capsule 10 mg PO BID levofloxacin 750 mg tablet 750 mg PO DAILY Qty: 9 0RF Rx Instructions: next dose 03/11/22 silver sulfadiazine [Silvadene] 1 % Cream 1 applic TOPICAL BID Rx Instructions: apply a 1.5 mm thickness Changed oxycodone 5 mg Tablet 5 - 10 mg PO Q6H 1 Days Qty: 4 0RF Discontinued Aquaphor Ointment 1 applic TOPICAL TID Referrals / Follow Up: Nicole Bailey PA [Primary Care Provider] - Within 1 Month Disposition Disposition (needs filled in before D/C Order can be placed): [facility]
== END 2022-03-15 17:57 | disposition skilled nursing facility (03) ==
LOC: ED 12:51 → MS3 13:33
PROVIDERS: Admitting Provider Internal Medicine; Emergency Provider Emergency Medicine; PCP Physician Assistant; Visit Provider Internal Medicine
DX: R62.7 Adult failure to thrive (principal); D61.818 Other pancytopenia; E43 Unspecified severe protein-calorie malnutrition; C21.8 Malignant neoplasm of overlapping sites of rectum, anus and anal canal; E86.0 Dehydration; K64.9 Unspecified hemorrhoids; K21.9 Gastro-esophageal reflux disease without esophagitis; T21.05XA Burn of unspecified degree of buttock, initial encounter; R53.1 Weakness; E87.6 Hypokalemia; Z68.33 Body mass index [BMI] 33.0-33.9, adult; Z92.3 Personal history of irradiation; Z79.899 Other long term (current) drug therapy; Z79.890 Hormone replacement therapy; X19.XXXA Contact with other heat and hot substances, initial encounter; E03.9 Hypothyroidism, unspecified; J45.909 Unspecified asthma, uncomplicated; F41.9 Anxiety disorder, unspecified
CPT/HCPCS: 36415; 80048; 80053; 81001; 83605; 83735; 84100; 84443; 85025; 87426; 96361; 96372; 96374; 96375; 96376; 97116; 97162; 97166; 97530; 97535; 97802; 99218; 99251; 99281; J7030; J7120; A4216; G0378; G0463; J2405

== ENCOUNTER 2022-03-15 18:57 | Inpatient (IN) | payer OTHER, SELFPAY ==
--- NOTE | 2022-03-15 19:20 | NURSING ---
Notified Dr Silva of pharmacy questioning oxy order, per Dr. Silva, change order back to 5-10 mg q3hr PRN. Order repeated back, will add order.
[2022-03-15 20:33] VITALS: PULSE 105; RESP 16; O2SAT 95
[2022-03-15] MEDS: Famotidine 20 MG Tablet PO (21:15)
[2022-03-15] MEDS: CLARIFY ORDER NOTE (21:15)
[2022-03-15] MEDS: oxyCODONE 5 MG Tablet PO (21:15)
[2022-03-15] MEDS: Acetaminophen 325 MG Tablet 650 MG PO (21:21)
--- NOTE | 2022-03-15 21:27 | NURSING ---
Patient arrived on unit at approximately 6pm. Was accompanied by mother.
--- NOTE | 2022-03-15 21:27 | NURSING ---
When taking vitals oral temperature noted to be 99.8. Patient is currently on Levaquin for UTI, is also neutropenic post chemo/radiation treatments. Tylenol 650mg po administered for elevated temp. Will continue to monitor.
[2022-03-15 21:29] VITALS: BP 105/73; PULSE 105; RESP 18; TEMP 37.7; O2SAT 92
[2022-03-16 03:10] VITALS: BMI 34.2
[2022-03-16] MEDS: oxyCODONE HCl Cr 10 MG Tablet PO ×2 (04:59→17:14)
[2022-03-16] MEDS: Levothyroxine 100 MCG Tablet 200 MCG PO (05:00)
[2022-03-16] MEDS: Loratadine 10 MG Tablet PO ×2 (05:00→17:17)
[2022-03-16] MEDS: Pantoprazole Sodium 40 MG Tablet PO (05:00)
[2022-03-16] MEDS: levoFLOXacin 750 MG Tablet PO (05:00)
[2022-03-16] MEDS: Fluticasone 0.05% 1 SPRAY NASAL.SRY 2 SPRAY NASAL (05:01)
[2022-03-16] MEDS: Polyethylene Glycol 3350 17 GM PACKET PO ×3 (05:01→22:54)
[2022-03-16] MEDS: Enoxaparin 40 MG/0.4 ML Syringe SC (05:06)
[2022-03-16 05:30] LABS: Absolute Lymphocyte Count 0.32 X10^3/uL (0.83-4.51); Absolute Neutrophil Count 1.9 X10^3/uL (2.0-7.7); Basophil# 0.01 X10^3/uL; Basophil% 0.4 % (0-1); Hematocrit 34.8 % (37-47); Hemoglobin 11.9 g/dL (12.0-15.0); Lymphocyte # 0.32 X10^3/ul (0.83-4.51); Lymphocyte % 12.4 % (19-41); Mean Corp Hgb Conc 34.2 g/dL (32-36); Mean Corpuscular Hgb 31.2 pg (27.0-32.0); Mean Corpuscular Volume 91.3 fL (81-99); Mean Platelet Vol. 8.6 fl (6.2-12.0); Monocyte# 0.35 X10^3/uL; Monocyte% 13.5 % (0-10); NRBC Flagged by Analyzer 0 % (0-5); Neutrophil # 1.86 X10^3/uL (2.7-7.7); Neutrophil % 71.8 % (47-70); POSITIVE DIFFERENTIAL YES; Platelet Count 111 K/mm3 (150-450); RBC Distribution Width CV 17.6 % (11.6-14.6); RBC Distribution Width SD 55.1 fl (35.1-43.9); Red Blood Count 3.81 M/mm3 (4.2-5.4); White Blood Count 2.6 K/mm3 (4.4-11.0)
[2022-03-16] MEDS: Silver Sulfadiazine 1% Crm 50 gm Bottle 1 APPLIC TOPICAL (05:46)
[2022-03-16 05:49] LABS: Differential Indicated SCAN CRITERIA MET
[2022-03-16 06:03] LABS: Anion Gap 5 (5-15); BUN 15 mg/dL (7-18); BUN/Creat Ratio 20.6 RATIO (10-20); Calcium,Total 9.1 mg/dL (8.5-10.1); Chloride 103 mmol/L (98-107); Creatinine, Serum 0.73 mg/dL (0.55-1.02); EST Glomerular Filtration Rate 90 mL/min (>60); Est Glom Filt Rate - Afr Amer 109 mL/min (>60); Glucose 105 mg/dL (74-106); Potassium 4.4 mmol/L (3.5-5.1); Sodium Level 137 mmol/L (136-145)
[2022-03-16 06:29] LABS: Differential Comment SCANNED
[2022-03-16] MEDS: Gabapentin 300 MG Capsule PO ×2 (08:02→17:14)
[2022-03-16] MEDS: Tuberculin,Purif.prot.deriv. 50 TU/ML Vial 0.1 ML ID (10:14)
[2022-03-16] MEDS: oxyCODONE 5 MG Tablet PO ×3 (11:02→22:57)
--- NOTE | 2022-03-16 12:31 | HP.PCM_ITS ---
HPI - General General Date of Admission: 03/15/22 Date of Service: 03/18/22 Chief Complaint: Here for rehab. HPI Narrative 03/13/2022 ALISHA RICE, is a 52 Female who presents to [facility] with weakness. Generalized weakness x 2 days, just finished radiation for anal cancer. Finished chemotherapy [address] Go started her on Levaquin for fever, UTI. Chiang to perineum, rectum 2/2 radiation. Fiance unable to care for her at home. Deepika has stomach flu. Normal saline IV given, UA positive nitrites. Diarrhea. 03/13/2022 Admit to Hospital. PT/OT for SNF. Zofran as needed for nausea, vomiting. IV fluids for dehydration. Pyridium for dysuria. Aquaphor, Silvadene for rectal radiation chiang. 03/14/2022 Pain to rectum. Replace potassium. Urine culture negative, stop Levaquin. 03/15/2022 Admit to TCU with debility, here for rehabilitation, strengthening, prior to discharge home with deepika. [facility] Medical History Anal cancer Anxiety Asthma Encounter for management of wound VAC External hemorrhoid GERD (gastroesophageal reflux disease) Hypothyroidism Internal hemorrhoid Home Medications Lactobacillus acidophilus 10 mg PO BID Supplement 02/19/22 [History Last Taken Unknown] albuterol 90 mcg/actuation aerosol inhaler 90 mcg inhalation Q4H PRN Wheezing 02/19/22 [History Last Taken Unknown] cetirizine 10 mg capsule 10 mg PO BID Allergies 02/19/22 [History Last Taken Unknown] cyanocobalamin (vitamin B-12) 25 mcg tablet 50 mcg PO DAILY Supplement 02/19/22 [History Last Taken Unknown] ergocalciferol (vitamin D2) 50,000 unit tablet 50,000 unit PO QWEEK Supplement 02/19/22 [History Last Taken Unknown] famotidine 20 mg tablet (Pepcid) 20 mg PO QHS GERD 02/19/22 [History Last Taken Unknown] magnesium 30 mg tablet 30 mg PO DAILY Supplement 02/19/22 [History Last Taken Unknown] pantoprazole 40 mg tablet,delayed release 40 mg PO DAILY GERD 02/19/22 [History Last Taken Unknown] polyethylene glycol 3350 17 gram oral powder packet (Miralax) 17 g PO BID Constipation 02/19/22 [History Last Taken Unknown] sumatriptan succinate 100 mg tablet (Imitrex) 100 mg PO Q2H PRN Migraine Headache 02/19/22 [History Last Taken Unknown] triamcinolone acetonide 55 mcg nasal spray aerosol (Nasacort) 2 spray intranasal DAILY Allergies 02/19/22 [History Last Taken Unknown] wheat dextrin 3 gram/3.5 gram oral powder 2 packet PO BID Supplement 02/19/22 [History Last Taken Unknown] silver sulfadiazine 1 % topical cream (Silvadene) 1 applic topical BID Wound 03/13/22 [History Last Taken Unknown] acetaminophen 325 mg tablet (Tylenol) 650 mg PO Q6H PRN PRN Pain Score 1-10/Temp > 100.7 F #0 tabs 03/15/22 [Rx Last Taken Unknown] enoxaparin 40 mg/0.4 mL subcutaneous syringe 40 mg subcut DAILY Blood thinner 03/15/22 [History Last Taken Unknown] food supplemt, lactose-reduced 0.08 gram-1.5 kcal/mL oral liquid (Ensure Enlive) 120 ml PO 4X/DAY Supplement 03/15/22 [History Last Taken Unknown] gabapentin 300 mg capsule 300 mg PO BIDCM Nerve pain 03/15/22 [History Last Taken Unknown] levofloxacin 750 mg tablet 750 mg PO DAILY Antibiotic 03/15/22 [History Last Taken Unknown] levothyroxine 100 mcg tablet 200 mcg PO 0600 Thyroid 03/15/22 [History Last Taken Unknown] lidocaine HCl 2 % mucosal jelly 1 tube topical Q6 Pain 03/15/22 [History Last Taken Unknown] oxycodone 10 mg tablet,crush resistant,extended release 12 hr (OxyContin) 10 mg PO BID Pain 03/15/22 [History Last Taken Unknown] oxycodone 5 mg tablet 5 - 10 mg PO Q6H Pain 5-10 03/15/22 [History Last Taken Unknown] Allergy/AdvReac Type Severity Reaction Status Date / Time Beta-Blockers AdvReac allergy Verified 03/13/22 09:51 (Beta-Adrenergic Bloc immunotherapy tramadol AdvReac headache, Verified 03/13/22 09:51 stiffness Family History Mother Breast cancer Father TIA (transient ischemic attack) Alzheimer disease Hyperlipemia Pacemaker Surgical History H/O thyroidectomy History of delivery History of hip surgery Social History household members: significant other and children current occupational status: employed current occupation: counselor Smoking Status: Never smoker alcohol intake: never substance use type: does not use caffeine: Yes ROS Constitutional Constitutional: Denies chills, fever(s) or weight gain ENT HEENT: Denies headache(s), nasal congestion or nasal discharge Cardiovascular Cardiovascular: Denies chest pain or palpitations Respiratory/Chest Respiratory/Chest: Denies cough, excessive phlegm production or shortness of breath with exertion Gastrointestinal Gastrointestinal: Denies abdominal pain, nausea or vomiting Genitourinary Genitourinary: Denies dysuria Musculoskeletal Musculoskeletal: Denies joint pain or joint swelling Integumentary Integumentary: Denies rash or wounds Neurologic Neurologic: Denies focal weakness, numbness or tingling Psychiatric Psychiatric: Denies anxiety, auditory hallucinations, depression, homicidal ideation or suicidal ideation Vital Signs Vital Signs Vital Signs: 03/15/22 20:43 03/15/22 21:29 03/15/22 20:33 Temperature 99.8 F H Temperature Source Oral Pulse Rate 105 H 105 H Pulse Rhythm Regular Pulse Strength Normal (2+) Normal (2+) Respiratory Rate 18 16 Respiratory Effort Normal Non-Labored Respiratory Depth Normal Respiratory Pattern Normal Blood Pressure 105/73 Blood Pressure Mean 83 Blood Pressure Source Monitor Pulse Ox 92 95 Oxygen Delivery Method Room Air Room Air Oxygen Flow Rate (L/min) 03/15/22 22:00 03/16/22 09:37 03/16/22 09:38 Temperature Temperature Source Pulse Rate Pulse Rhythm Pulse Strength Normal (2+) Respiratory Rate Respiratory Effort Respiratory Depth Respiratory Pattern Blood Pressure Blood Pressure Mean Blood Pressure Source Pulse Ox Oxygen Delivery Method Oxygen Flow Rate (L/min) 2 2 03/16/22 10:00 Temperature Temperature Source Pulse Rate Pulse Rhythm Pulse Strength Normal (2+) Respiratory Rate Respiratory Effort Respiratory Depth Respiratory Pattern Blood Pressure Blood Pressure Mean Blood Pressure Source Pulse Ox Oxygen Delivery Method Oxygen Flow Rate (L/min) Weight Weight: 87.543 kg Body Mass Index (BMI) 34.2 Physical Exam Const alert General Appearance: cooperative HEENT normocephalic Eyes PERRL and EOMs intact bilaterally Neck supple, no JVD and no carotid bruits Resp normal respiratory effort, normal air movement and clear to auscultation bilaterally Cardio regular rate and regular rhythm GI normal to inspection, nondistended, normoactive bowel sounds, non-tender and non-distended Extremity normal capillary refill General Extremity: Negative for edema Skin no rashes or lesions noted General Skin Exam: no breakdown Psych affect normal Appearance: appropriate Results Lab / Micro Data Result Diagrams: 03/16/22 05:18 03/16/22 05:18 Labs: Laboratory Results - last 24 hr 03/16/22 05:18: WBC 2.6 L, RBC 3.81 L, Hgb 11.9 L, Hct 34.8 L, MCV 91.3, MCH 31.2, MCHC 34.2, RDW Std Deviation 55.1 H, RDW Coeff of Rosie 17.6 H, Plt Count 111 L, MPV 8.6, Immature Gran % (Auto) 1.900 H, Neut % (Auto) 71.8 H, Lymph % (Auto) 12.4 L, [place] % (Auto) 13.5 H, Eos % (Auto) 0.0, Baso % (Auto) 0.4, Absolute Neuts (auto) 1.9 L, Absolute Lymphs (auto) 0.32 L, Nucleated RBC % 0, Differential Comment SCANNED, Diff Path Review January03/16/22 05:18: Sodium 137, Potassium 4.4, Chloride 103, Carbon Dioxide 29.0, Anion Gap 5, BUN 15, Creatinine 0.73, Est GFR (MDRD) Af Amer 109, Est GFR (MDRD) Non-Af 90, BUN/Creatinine Ratio 20.6 H, Glucose 105, Calcium 9.1 Assessment & Plan Assessment/Plan (1) Debility: (2) Dehydration: (3) Weakness: (4) Diarrhea: (5) Adult failure to thrive: (6) Anxiety: (7) Asthma: (8) Gastroesophageal reflux disease: (9) Hypothyroidism: (10) Migraine: PLAN: Plan 52 year old female with below past medical history significant for anal cancer, just finished chemotherapy, radiation, admitted to hospital with UTI, weakness, admitted to TCU with debility, here for rehabilitation, strengthening, prior to discharge home with fiance. * Debility - PT/OT. * Pain - Tylenol 650mg q4h prn, Oxycontin 10mg bid, Oxycodone 5-10mg Q3H prn. * Bowel - Miralax 17gm tid. * Adult immunization - Administer pneumonia vaccine, covid19 vaccine, flu vaccine as appropriate. * DVT prophylaxis - Lovenox 40mg sc daily. * Asthma - Albuterol 1 puff q4h prn. * Nutrition - Ensure Enlive 120ml 4x/day. * Vitamin D deficiency - D2 50,000 units per week. * GERD - Pantoprazole 40mg daily, Famotidine 20mg qhs. * Allergic rhinitis - Loratadine 10mg bid, Flonase spray 1 spray daily. * Neuropathic pain - Gabapentin 300mg bidcm. * GI prophylaxis - Lactobacillus 1 tablet bid. * Hypothyroidism - Levothyroxine 200mcg daily. * Rectal radiation chiang - Xylocaine 2% topical bid, Silvadine 1% topical bid. * Migraine - Rizatriptan 10mg q2h prn.
--- NOTE | 2022-03-16 13:10 | NURSING ---
Patient and family updated on staff member testing positive.
[2022-03-16 16:00] VITALS: BP 124/78; PULSE 108; RESP 16; TEMP 36.6; O2SAT 90
[2022-03-16] MEDS: Juven (unflavored) Packet 1 PACKET PO (17:15)
[2022-03-16] MEDS: Ergocalciferol 1.25 MG (50, 000 UNIT) Capsule PO (18:03)
[2022-03-16] MEDS: Famotidine 20 MG Tablet PO (22:56)
[2022-03-16 23:11] VITALS: RESP 16
[2022-03-17] MEDS: oxyCODONE 5 MG Tablet PO ×4 (02:54→22:28)
[2022-03-17] MEDS: Polyethylene Glycol 3350 17 GM PACKET PO ×2 (05:39→20:39)
[2022-03-17] MEDS: Loratadine 10 MG Tablet PO ×2 (05:40→16:59)
[2022-03-17] MEDS: Levothyroxine 100 MCG Tablet 200 MCG PO (05:40)
[2022-03-17] MEDS: Pantoprazole Sodium 40 MG Tablet PO (05:40)
[2022-03-17] MEDS: Enoxaparin 40 MG/0.4 ML Syringe SC (05:41)
[2022-03-17] MEDS: oxyCODONE HCl Cr 10 MG Tablet PO ×2 (06:46→16:59)
[2022-03-17] MEDS: Gabapentin 300 MG Capsule PO ×2 (08:15→16:59)
[2022-03-17] MEDS: Juven (unflavored) Packet 1 PACKET PO ×2 (08:15→16:59)
[2022-03-17] MEDS: Acetaminophen 325 MG Tablet 650 MG PO (11:17)
[2022-03-17 16:00] VITALS: BP 81/45; PULSE 90; RESP 18; TEMP 36.6; O2SAT 98
[2022-03-17] MEDS: Famotidine 20 MG Tablet PO (20:39)
[2022-03-18] MEDS: oxyCODONE HCl Cr 10 MG Tablet PO ×2 (05:37→18:05)
[2022-03-18] MEDS: Levothyroxine 100 MCG Tablet 200 MCG PO (05:38)
[2022-03-18] MEDS: Polyethylene Glycol 3350 17 GM PACKET PO ×3 (05:38→20:19)
[2022-03-18] MEDS: Pantoprazole Sodium 40 MG Tablet PO (05:38)
[2022-03-18] MEDS: Loratadine 10 MG Tablet PO ×2 (05:39→18:05)
[2022-03-18] MEDS: Enoxaparin 40 MG/0.4 ML Syringe SC (05:40)
[2022-03-18] MEDS: Fluticasone 0.05% 1 SPRAY NASAL.SRY 2 SPRAY NASAL (05:42)
[2022-03-18] MEDS: Juven (unflavored) Packet 1 PACKET PO ×2 (08:45→18:05)
[2022-03-18] MEDS: Gabapentin 300 MG Capsule PO ×2 (08:45→18:05)
[2022-03-18] MEDS: oxyCODONE 5 MG Tablet PO ×3 (10:04→22:36)
[2022-03-18 15:10] VITALS: BP 96/63; PULSE 105; RESP 16; TEMP 35.9; O2SAT 93
[2022-03-18] MEDS: Famotidine 20 MG Tablet PO (20:20)
[2022-03-18 21:00] VITALS: PULSE 95; RESP 16; O2SAT 98
[2022-03-19] MEDS: oxyCODONE 5 MG Tablet PO ×4 (02:39→21:08)
[2022-03-19] MEDS: oxyCODONE HCl Cr 10 MG Tablet PO ×2 (05:52→18:08)
[2022-03-19] MEDS: Levothyroxine 100 MCG Tablet 200 MCG PO (05:54)
[2022-03-19] MEDS: Loratadine 10 MG Tablet PO ×2 (05:54→18:02)
[2022-03-19] MEDS: Pantoprazole Sodium 40 MG Tablet PO (05:54)
[2022-03-19] MEDS: Enoxaparin 40 MG/0.4 ML Syringe SC (05:55)
[2022-03-19] MEDS: Polyethylene Glycol 3350 17 GM PACKET PO ×3 (05:55→21:10)
[2022-03-19] MEDS: Fluticasone 0.05% 1 SPRAY NASAL.SRY 2 SPRAY NASAL (05:56)
[2022-03-19] MEDS: Juven (unflavored) Packet 1 PACKET PO ×2 (09:13→18:01)
[2022-03-19] MEDS: Gabapentin 300 MG Capsule PO ×2 (09:17→18:01)
--- NOTE | 2022-03-19 10:22 | PHA.CONS_ITS ---
TCU RX Drug Regimen Review Subjective: TCU Admission. 52 YOF presented to ER with weakness. Admitted to the hospital with a UTI (completed levofloxacin). S/P chemotherapy and radiation for anal cancer. Admitted to TCU with debility for strengthening and rehabilitation. Objective: Allergies Beta-Blockers (Beta-Adrenergic Bloc Adverse Reaction (Verified 03/13/22 09:51) allergy immunotherapy Per Dr. Go Avoid use of beta-blockers while patient is on allergy immunotherapy tramadol Adverse Reaction (Verified 03/13/22 09:51) headache, stiffness Current Medications Generic Name Dose Route Start Last Admin Trade Name Freq PRN Reason Stop Dose Admin Acetaminophen 650 mg 03/15/22 18:49 03/17/22 11:17 Acetaminophen 325 Mg Tablet PO 650 mg Q6H PRN PRN Administration Pain Score 1-10/Temp > 100.7 F Albuterol Sulfate 1 puff 03/15/22 19:04 Albuterol Sulfate 8 Gm Inhaler (60 Puffs) INHALATION Q4H PRN PRN Wheezing Enoxaparin Sodium 40 mg 03/16/22 06:00 03/19/22 05:55 Enoxaparin 40 Mg/0.4 Ml Syringe SC 40 mg DAILY FRANKLIN Administration Ergocalciferol 1.25 mg 03/16/22 17:00 03/16/22 18:03 Ergocalciferol 1.25 Mg (50, 000 Unit) Capsule PO 1.25 mg QWEEK FRANKLIN Administration Famotidine 20 mg 03/15/22 22:00 03/18/22 20:20 Famotidine 20 Mg Tablet PO 20 mg QHS FRANKLIN Administration Fluticasone Propionate 2 spray 03/16/22 06:00 03/19/22 05:56 Fluticasone 0.05% 1 Arnold Nasal.Sry NASAL 2 spray DAILY FRANKLIN Administration Gabapentin 300 mg 03/16/22 08:00 03/19/22 09:17 Gabapentin 300 Mg Capsule PO 300 mg BIDCM FRANKLIN Administration L-Arginine/L-Glutamine/Calcium HMB 1 packet 03/16/22 17:00 03/19/22 09:13 Jay (Unflavored) Packet PO 1 packet BIDCM FRANKLIN Administration Lactobacillus Acidophilus 1 tablet 03/16/22 06:00 03/19/22 05:54 Lactobacillus Acidophilus PO 1 tablet BID FRANKLIN Administration Levothyroxine Sodium 200 mcg 03/16/22 06:00 03/19/22 05:54 Levothyroxine 100 Mcg Tablet PO 200 mcg 0600 FRANKLIN Administration Lidocaine HCl 1 tube 03/16/22 00:00 03/19/22 05:53 Lidocaine Jelly 2% Tube 30 Ml TOPICAL 1 tube Q6 FRANKLIN Administration Protocol Loratadine 10 mg 03/16/22 06:00 03/19/22 05:54 Loratadine 10 Mg Tablet PO 10 mg BID FRANKLIN Administration Oxycodone HCl 10 mg 03/16/22 06:00 03/19/22 05:52 Oxycodone Hcl Cr 10 Mg Tablet PO 10 mg BID FRANKLIN Administration Oxycodone HCl 5 - 10 mg 03/15/22 19:20 03/19/22 02:39 Oxycodone 5 Mg Tablet PO 10 mg Q3H PRN PRN Administration Pain Score 5-10 Pantoprazole Sodium 40 mg 03/16/22 06:00 03/19/22 05:54 Pantoprazole Sodium 40 Mg Tablet PO 40 mg DAILY FRANKLIN Administration Polyethylene Glycol 17 gm 03/16/22 14:00 03/19/22 05:55 Polyethylene Glycol 3350 17 Gm Packet PO 17 gm TID FRANKLIN Administration Rizatriptan Benzoate 10 mg 03/15/22 19:27 Rizatriptan Benzoate 10 Mg Tablet PO Q2H PRN MIGRAINE SYMPTOMS Silver Sulfadiazine 1 applic 03/16/22 06:00 03/19/22 05:54 Silver Sulfadiazine 1% Crm 50 Gm Bottle TOPICAL Not Given BID [facility] Protocol Sodium Chloride 10 - 40 ml 03/15/22 19:07 0.9% Saline Lock 10 Ml Syringe IV UD PRN SALINE FLUSH Tuberculin PPD 0.1 ml 03/23/22 10:00 Tuberculin,Purif.Prot.Deriv. 50 Tu/Ml Vial ID 03/23/22 10:01 X1 ONE Problem List (Last Reviewed 03/16/22 @ 12:[address] Esau Silva MD) Migraine (Acute) Hypothyroidism (Acute) Gastroesophageal reflux disease (Acute) Asthma (Acute) Anxiety (Acute) Debility (Acute) Weakness (Acute) Adult failure to thrive (Acute) Vital Signs Temp Pulse Resp BP Pulse Ox O2 Del Method O2 Flow Rate 96.7 F L 95 16 96/63 98 Room Air 2 03/18/22 15:10 03/18/22 21:00 03/18/22 21:00 03/18/22 15:10 03/18/22 21:00 03/19/22 10:00 03/18/22 21:00 Oxygen Flow Rate (L/min) 2 Oxygen Delivery Method Room Air Weight: 87.543 kg Body Mass Index (BMI) 34.2 Sodium 137 mmol/L (136-145) 03/16/22 05:18 Potassium 4.4 mmol/L (3.5-5.1) 03/16/22 05:18 Chloride 103 mmol/L (98-107) 03/16/22 05:18 Carbon Dioxide 29.0 mmol/L (21.0-32.0) 03/16/22 05:18 Anion Gap 5 (5-15) 03/16/22 05:18 BUN 15 mg/dL (7-18) 03/16/22 05:18 Creatinine 0.73 mg/dL (0.55-1.02) 03/16/22 05:18 Est GFR (MDRD) Af Amer 109 mL/min (>60) 03/16/22 05:18 Est GFR (MDRD) Non-Af 90 mL/min (>60) 03/16/22 05:18 BUN/Creatinine Ratio 20.6 RATIO (10-20) H 03/16/22 05:18 Glucose 105 mg/dL (74-106) 03/16/22 05:18 Assessment/Plan: 1. Pain: acetaminophen 650mg PO Q6H PRN pain 1-10/fever, oxycodone CR 10mg PO BID and oxycodone 5-10mg PO Q3H PRN pain 5-10. Resident has received 2 doses of acetaminophen (1 for pain 10 and 1 for fever) and 12 doses of PRN oxycodone for pain scales from 7-10 in the buttocks/groin/wound. Please continue to monitor for increased pain, PRN usage, constipation, and respiratory depression. 2. Bowel: Miralax 17gm PO TID and Benefiber 4gm PO daily. Please continue to monitor for constipation. Resident is on scheduled/PRN narcotics and has had 2 documented bowel movements today. 3. DVT prophylaxis: enoxaparin 40mg SC daily. Please continue to monitor for S/S of bleeding, hemoglobin (last 11.9g/dL), platelets (last 111,000) and renal function. 4. Rectal radiation chiang: lidocaine 2% jelly topical Q6 and Silvadine 1% topical BID. Please continue to monitor for improvement. 5. Asthma: albuterol inhaler 1 inhalation Q4H PRN wheezing. Resident has not required any doses. Please continue to monitor for PRN usage and wheezing. 6. GERD: pantoprazole 40mg PO daily and famotidine 20mg PO QHS. Please continue to monitor for S/S of GERD and diarrhea. 7. Allergic rhinitis: loratadine 10mg PO BID and fluticasone 0.05% 2 sprays nasal daily. Please continue to monitor for S/S of allergies. 8. Hypothyroidism: levothyroxine 200mcg PO daily. Last TSH from 03/14/22 was elevated so dose was increased upon discharge from hospital. Please consider ordering another TSH level in 4-6 weeks. Thanks. Please continue to monitor for S/S of hypo/hyperthyroidism. 9. Migraine: rizatriptan 10mg PO Q2H PRN migraine symptoms. Please continue to monitor for S/S of migraine. Resident has not required a dose. 10. GI prophylaxis: lactobacillus 1T PO BID. Please continue to monitor. 11. Vitamin D deficiency: ergocalciferol 1.25mg PO weekly. Last vitamin D level from 02/14/21. Please consider ordering a vitamin D level now and then annually as clinically appropriate. Thanks. Assessment/Plan for indications treated with psychotropic medications: 1. Neuropathic pain: gabapentin 300mg PO BIDCM. Please continue to monitor for increased pain, renal function and confusion. Resident is using for neuropathic pain. Mediation started during hospital admission. GDR not appropriate. Medical chart and medication regimen reviewed. The following medication irregularities or issues were identified: *1. Levothyroxine 200mcg PO daily. Last TSH from 03/14/22 was elevated so dose was increased upon discharge from hospital. Please consider ordering another TSH level in 4-6 weeks. Thanks. *2. Ergocalciferol 1.25mg PO weekly. Last vitamin D level from 02/14/21. Please consider ordering a vitamin D level now and then annually as clinically appropriate. Thanks. Date of Note:: 03/19/22
[2022-03-19 14:01] VITALS: BP 101/65; PULSE 95; RESP 18; TEMP 36.3; O2SAT 97
[2022-03-19] MEDS: Acetaminophen 325 MG Tablet 650 MG PO ×2 (15:01→21:09)
[2022-03-19 15:19] LABS: Pathologist Review Reviewed
[2022-03-19] MEDS: Silver Sulfadiazine 1% Crm 50 gm Bottle 1 APPLIC TOPICAL (18:02)
[2022-03-19 21:04] VITALS: BP 141/66; PULSE 91
[2022-03-19] MEDS: Famotidine 20 MG Tablet PO (21:11)
[2022-03-20] MEDS: oxyCODONE 5 MG Tablet PO ×7 (00:13→21:34)
[2022-03-20] MEDS: Acetaminophen 325 MG Tablet 650 MG PO ×2 (03:20→10:56)
[2022-03-20] MEDS: Enoxaparin 40 MG/0.4 ML Syringe SC (06:14)
[2022-03-20] MEDS: Loratadine 10 MG Tablet PO ×2 (06:14→16:56)
[2022-03-20] MEDS: oxyCODONE HCl Cr 10 MG Tablet PO ×2 (06:15→18:01)
[2022-03-20] MEDS: Levothyroxine 100 MCG Tablet 200 MCG PO (06:15)
[2022-03-20] MEDS: Pantoprazole Sodium 40 MG Tablet PO (06:15)
[2022-03-20] MEDS: Polyethylene Glycol 3350 17 GM PACKET PO (06:20)
[2022-03-20] MEDS: Fluticasone 0.05% 1 SPRAY NASAL.SRY 2 SPRAY NASAL (06:22)
[2022-03-20] MEDS: Gabapentin 300 MG Capsule PO ×2 (07:54→16:06)
[2022-03-20] MEDS: Juven (unflavored) Packet 1 PACKET PO ×2 (07:54→16:06)
[2022-03-20 10:38] VITALS: PULSE 100; RESP 18; O2SAT 98
--- NOTE | 2022-03-20 13:32 | CASEMGMT ---
Social Work IDT met with patient and mother for care plan meeting. Discussed patient's progress in PT/OT/SN. Pt has wounds and dressing changes. Pt using O2 at times, which is new. Explained [facility] insurance with [employer] 03/27 and continued stay is not guaranteed. Explained one day DC notice. Pt has [address] then another 4 steps to enter. Pt has bed/bath on 2nd floor. Discussed having a 1st flr set up. Pt does have a full bathroom on the 1st floor and could potentially have a hospital bed in the living room. SW to complete initial assessment and ensure DC goals are in place. SW to follow for DC planning. Patti Landon, KIERAN DONALDW
[2022-03-20 15:48] VITALS: BP 92/52; PULSE 100; RESP 18; TEMP 36.6; O2SAT 98
[2022-03-20] MEDS: Famotidine 20 MG Tablet PO (21:35)
[2022-03-21] MEDS: oxyCODONE 5 MG Tablet PO ×6 (00:47→21:26)
[2022-03-21] MEDS: oxyCODONE HCl Cr 10 MG Tablet PO ×2 (05:42→18:05)
[2022-03-21] MEDS: Loratadine 10 MG Tablet PO ×2 (05:42→18:06)
[2022-03-21] MEDS: Enoxaparin 40 MG/0.4 ML Syringe SC (05:42)
[2022-03-21] MEDS: Pantoprazole Sodium 40 MG Tablet PO (05:42)
[2022-03-21] MEDS: Levothyroxine 100 MCG Tablet 200 MCG PO (05:42)
[2022-03-21] MEDS: Fluticasone 0.05% 1 SPRAY NASAL.SRY 2 SPRAY NASAL (05:43)
[2022-03-21] MEDS: Silver Sulfadiazine 1% Crm 50 gm Bottle 1 APPLIC TOPICAL (05:44)
--- NOTE | 2022-03-21 06:38 | NURSING ---
Pain meds given per order and areas cleaned and creams put in place. Patient tolerated fairly well.
[2022-03-21] MEDS: Gabapentin 300 MG Capsule PO ×2 (08:04→18:05)
[2022-03-21] MEDS: Acetaminophen 325 MG Tablet 650 MG PO ×2 (08:04→18:05)
[2022-03-21] MEDS: Juven (unflavored) Packet 1 PACKET PO ×2 (08:04→18:06)
--- NOTE | 2022-03-21 09:03 | CASEMGMT ---
Social Work Met with patient to complete initial assessment. Introduced self and role. Verified/updated contacts. Discussed code status and MOLST form. Pt confirmed full code. MOLST communicated to , placed in chart. Pt wishes to complete advanced directives. SW to complete prior to DC as time allows. Explained [facility] insurance with [employer] 03/27 and continued stay is not guaranteed. The goal is for pt to return home at [facility], with wound healed, ambulating independently and can toilet/transfer self. Pt's SO works multimedia producer and cares for children. SW explored mental health. Pt discusses leaning on toma and keeping a positive attitude. SW offered ongoing support during stay. SW to continue to follow for DC planning and support as needed. Patti Landon, PARTS DEPARTMENT MANAGER ELECT[employer]IC MOTOR REPAIRING SUPERVISOR
[2022-03-21 09:14] LABS: Bacteria 0 SEEN /hpf (None Seen); Mucous, Urine 0 SEEN /hpf (<or=2+)
[2022-03-21 09:15] LABS: Color, Urine Yellow (Yellow); Glucose, Dipstick Normal (Normal); Ketone-Dipstick Negative (Negative); Leukocyte Esterase-Dipstick 100 /ul (Negative); Nitrite-Dipstick Negative (Negative); Occult Blood-Urine 250 /ul (Negative); Protein-Dipstick 100 mg/dl (Negative); Specific Gravity, Urine 1.015 (1.002-1.030); Urine Bilirubin Dipstick Negative (Negative); Urine Clarity Sl. Cloudy (Clear); Urine Urobilinogen Normal (Normal); Urine pH 6.5 (5.0 - 8.0)
[2022-03-21 09:29] LABS: Red Blood Cells-Urine 25-50 SEEN /hpf (0-5); Squamous Epithelial Cells - UA 0-5 SEEN /hpf (5-10); White Blood Cells 10-25 SEEN /hpf (0-5)
--- NOTE | 2022-03-21 11:01 | WOUNDNOTE ---
In to reassess the radiation chiang to perineum, anal area and groin. all appear improved. patient states pain has also improved. plan to continue current treatment.
[2022-03-21 14:29] VITALS: BP 92/57; PULSE 107; RESP 18; TEMP 36.4; O2SAT 93
[2022-03-21] MEDS: Famotidine 20 MG Tablet PO (21:26)
[2022-03-22] MEDS: oxyCODONE 5 MG Tablet PO ×7 (00:37→21:54)
[2022-03-22] MEDS: oxyCODONE HCl Cr 10 MG Tablet PO ×2 (06:02→17:47)
[2022-03-22] MEDS: Enoxaparin 40 MG/0.4 ML Syringe SC (06:03)
[2022-03-22] MEDS: Loratadine 10 MG Tablet PO ×2 (06:03→17:48)
[2022-03-22] MEDS: Levothyroxine 100 MCG Tablet 200 MCG PO (06:04)
[2022-03-22] MEDS: Pantoprazole Sodium 40 MG Tablet PO (06:04)
[2022-03-22] MEDS: Silver Sulfadiazine 1% Crm 50 gm Bottle 1 APPLIC TOPICAL (06:20)
[2022-03-22] MEDS: Fluticasone 0.05% 1 SPRAY NASAL.SRY 2 SPRAY NASAL (06:43)
[2022-03-22] MEDS: Gabapentin 300 MG Capsule PO ×2 (09:32→17:47)
[2022-03-22] MEDS: Juven (unflavored) Packet 1 PACKET PO ×2 (09:34→17:47)
--- NOTE | 2022-03-22 09:46 | NURSING ---
Sas Developer Note: Interview and Section F of MDS complete.
[2022-03-22] MEDS: Oxybutynin 5 MG Tablet PO (11:20)
--- NOTE | 2022-03-22 12:21 | NURSING ---
night monitor reported bladder spasms d/t ibarra to Dr Silva this AM. new order for ditropan. pt updated and agreeable.
--- NOTE | 2022-03-22 14:41 | CASEMGMT ---
Social Work Completed advanced directives with pt. Pt named, SO David Chakraborty, as HCPOA. Original provided to pt. Copies placed on chart. BIMS and PHQ-9 completed for MDS assessment. KIERAN RegaladoW
[2022-03-22 16:00] VITALS: BP 100/67; PULSE 107; RESP 18; TEMP 36.1; O2SAT 92
[2022-03-22] MEDS: Famotidine 20 MG Tablet PO (21:54)
[2022-03-22 22:00] VITALS: PULSE 104; RESP 18; O2SAT 91
[2022-03-22] MEDS: Polyethylene Glycol 3350 17 GM PACKET PO (23:01)
[2022-03-23] MEDS: oxyCODONE 5 MG Tablet PO ×4 (02:50→23:26)
[2022-03-23 05:29] LABS: Absolute Lymphocyte Count 0.69 X10^3/uL (0.83-4.51); Absolute Neutrophil Count 1.7 X10^3/uL (2.0-7.7); Basophil# 0.03 X10^3/uL; Hematocrit 30.8 % (37-47); Hemoglobin 10.3 g/dL (12.0-15.0); Lymphocyte # 0.69 X10^3/ul (0.83-4.51); Lymphocyte % 23.6 % (19-41); Mean Corp Hgb Conc 33.4 g/dL (32-36); Mean Corpuscular Hgb 31.1 pg (27.0-32.0); Mean Corpuscular Volume 93.1 fL (81-99); Mean Platelet Vol. 8.7 fl (6.2-12.0); Monocyte# 0.41 X10^3/uL; NRBC Flagged by Analyzer 0 % (0-5); Neutrophil # 1.68 X10^3/uL (2.7-7.7); Neutrophil % 57.6 % (47-70); Platelet Count 257 K/mm3 (150-450); RBC Distribution Width CV 17.9 % (11.6-14.6); RBC Distribution Width SD 58.5 fl (35.1-43.9); Red Blood Count 3.31 M/mm3 (4.2-5.4); White Blood Count 2.9 K/mm3 (4.4-11.0)
[2022-03-23 05:54] LABS: Anion Gap 5 (5-15); BUN 23 mg/dL (7-18); BUN/Creat Ratio 38.6 RATIO (10-20); Calcium,Total 8.7 mg/dL (8.5-10.1); Chloride 104 mmol/L (98-107); EST Glomerular Filtration Rate 113 mL/min (>60); Est Glom Filt Rate - Afr Amer 137 mL/min (>60); Estimated Creatinine Clearance 88.72 ml/min; Glucose 109 mg/dL (74-106); Potassium 3.5 mmol/L (3.5-5.1); Sodium Level 138 mmol/L (136-145)
[2022-03-23] MEDS: oxyCODONE HCl Cr 10 MG Tablet PO ×2 (06:28→17:35)
[2022-03-23] MEDS: Pantoprazole Sodium 40 MG Tablet PO (06:30)
[2022-03-23] MEDS: Oxybutynin 5 MG Tablet PO ×2 (06:30→17:37)
[2022-03-23] MEDS: Polyethylene Glycol 3350 17 GM PACKET PO ×3 (06:30→20:12)
[2022-03-23] MEDS: Loratadine 10 MG Tablet PO ×2 (06:30→17:37)
[2022-03-23] MEDS: Levothyroxine 100 MCG Tablet 200 MCG PO (06:30)
[2022-03-23] MEDS: Enoxaparin 40 MG/0.4 ML Syringe SC (06:30)
[2022-03-23] MEDS: Fluticasone 0.05% 1 SPRAY NASAL.SRY 2 SPRAY NASAL (06:32)
[2022-03-23] MEDS: Juven (unflavored) Packet 1 PACKET PO ×2 (08:32→17:36)
[2022-03-23] MEDS: Gabapentin 300 MG Capsule PO ×2 (08:32→17:35)
[2022-03-23] MEDS: Tuberculin,Purif.prot.deriv. 50 TU/ML Vial 0.1 ML ID (13:51)
[2022-03-23 15:15] VITALS: BP 97/56; PULSE 105; RESP 16; TEMP 36.9; O2SAT 95
[2022-03-23] MEDS: Silver Sulfadiazine 1% Crm 50 gm Bottle 1 APPLIC TOPICAL (17:36)
[2022-03-23] MEDS: Ergocalciferol 1.25 MG (50, 000 UNIT) Capsule PO (17:38)
[2022-03-23] MEDS: Famotidine 20 MG Tablet PO (20:11)
[2022-03-24] MEDS: Lidocaine 5% 35GM Tube 1 APPLIC TOPICAL ×4 (01:12→23:49)
[2022-03-24] MEDS: oxyCODONE 5 MG Tablet PO ×4 (02:33→22:57)
[2022-03-24] MEDS: oxyCODONE HCl Cr 10 MG Tablet PO ×2 (05:44→17:06)
[2022-03-24] MEDS: Enoxaparin 40 MG/0.4 ML Syringe SC (06:46)
[2022-03-24] MEDS: Polyethylene Glycol 3350 17 GM PACKET PO ×3 (06:46→22:59)
[2022-03-24] MEDS: Oxybutynin 5 MG Tablet PO ×2 (06:47→17:06)
[2022-03-24] MEDS: Loratadine 10 MG Tablet PO ×2 (06:47→17:06)
[2022-03-24] MEDS: Levothyroxine 100 MCG Tablet 200 MCG PO (06:48)
[2022-03-24] MEDS: Fluticasone 0.05% 1 SPRAY NASAL.SRY 2 SPRAY NASAL (06:49)
[2022-03-24] MEDS: Pantoprazole Sodium 40 MG Tablet PO (06:49)
[2022-03-24] MEDS: Gabapentin 300 MG Capsule PO ×2 (08:37→17:06)
[2022-03-24] MEDS: Juven (unflavored) Packet 1 PACKET PO ×2 (08:37→17:06)
[2022-03-24 14:56] VITALS: BP 91/60; PULSE 103; RESP 16; TEMP 36.6; O2SAT 95
[2022-03-24] MEDS: Famotidine 20 MG Tablet PO (22:58)
[2022-03-24] MEDS: Rizatriptan Benzoate 10 MG Tablet PO (23:50)
[2022-03-25] MEDS: oxyCODONE 5 MG Tablet PO ×5 (02:43→19:58)
[2022-03-25] MEDS: oxyCODONE HCl Cr 10 MG Tablet PO ×2 (06:16→17:38)
[2022-03-25] MEDS: Levothyroxine 100 MCG Tablet 200 MCG PO (06:16)
[2022-03-25] MEDS: Loratadine 10 MG Tablet PO ×2 (06:16→17:38)
[2022-03-25] MEDS: Pantoprazole Sodium 40 MG Tablet PO (06:17)
[2022-03-25] MEDS: Polyethylene Glycol 3350 17 GM PACKET PO (06:17)
[2022-03-25] MEDS: Oxybutynin 5 MG Tablet PO ×2 (06:17→17:38)
[2022-03-25] MEDS: Fluticasone 0.05% 1 SPRAY NASAL.SRY 2 SPRAY NASAL (06:17)
[2022-03-25] MEDS: Enoxaparin 40 MG/0.4 ML Syringe SC (06:18)
--- NOTE | 2022-03-25 06:50 | NURSING ---
Offered to complete wound care this am and pt declines. Pain level remains 8/10 and would like to wait for wound care. Will report to oncoming nurse.
[2022-03-25] MEDS: Gabapentin 300 MG Capsule PO ×2 (08:47→17:38)
[2022-03-25] MEDS: Juven (unflavored) Packet 1 PACKET PO ×2 (08:48→17:38)
[2022-03-25] MEDS: Lidocaine 5% 35GM Tube 1 APPLIC TOPICAL ×3 (11:25→21:57)
[2022-03-25 13:42] VITALS: BP 117/71; PULSE 140; RESP 16; TEMP 36.8; O2SAT 95
[2022-03-25] MEDS: Famotidine 20 MG Tablet PO (19:58)
[2022-03-25 20:00] VITALS: RESP 16
[2022-03-25] MEDS: Rizatriptan Benzoate 10 MG Tablet PO (21:54)
[2022-03-26] MEDS: oxyCODONE 5 MG Tablet PO ×6 (00:13→22:40)
[2022-03-26] MEDS: Fluticasone 0.05% 1 SPRAY NASAL.SRY 2 SPRAY NASAL (05:14)
[2022-03-26] MEDS: Polyethylene Glycol 3350 17 GM PACKET PO ×2 (05:14→13:48)
[2022-03-26] MEDS: oxyCODONE HCl Cr 10 MG Tablet PO ×2 (05:14→18:05)
[2022-03-26] MEDS: Enoxaparin 40 MG/0.4 ML Syringe SC (05:14)
[2022-03-26] MEDS: Levothyroxine 100 MCG Tablet 200 MCG PO (05:15)
[2022-03-26] MEDS: Loratadine 10 MG Tablet PO ×2 (05:15→18:05)
[2022-03-26] MEDS: Pantoprazole Sodium 40 MG Tablet PO (05:15)
[2022-03-26] MEDS: Oxybutynin 5 MG Tablet PO ×2 (05:15→18:06)
[2022-03-26] MEDS: Lidocaine 5% 35GM Tube 1 APPLIC TOPICAL ×4 (05:22→22:38)
[2022-03-26] MEDS: Juven (unflavored) Packet 1 PACKET PO ×2 (07:51→18:06)
[2022-03-26] MEDS: Gabapentin 300 MG Capsule PO ×2 (07:51→18:05)
--- NOTE | 2022-03-26 11:34 | NURSING ---
Addendum entered by Tali Canales 03/26/22 12:34: no hives thus far, pt doing well. pt states she will notify nurse immediately if she notices anything. Original Note: pt reported that each time she has received covid vaccine she breaks out in hives on face. pt is due for 1st booster today, dr hill updated, new order x1 benadryl
[2022-03-26 12:25] VITALS: PULSE 105; RESP 16
[2022-03-26 14:49] VITALS: BP 105/68; PULSE 113; RESP 12; TEMP 36.9; O2SAT 93
[2022-03-26] MEDS: Famotidine 20 MG Tablet PO (22:39)
[2022-03-27] MEDS: oxyCODONE 5 MG Tablet PO ×5 (04:34→21:52)
[2022-03-27] MEDS: Oxybutynin 5 MG Tablet PO ×2 (04:35→18:14)
[2022-03-27] MEDS: Pantoprazole Sodium 40 MG Tablet PO (04:35)
[2022-03-27] MEDS: Levothyroxine 100 MCG Tablet 200 MCG PO (04:35)
[2022-03-27] MEDS: Loratadine 10 MG Tablet PO ×2 (04:35→18:14)
[2022-03-27] MEDS: Polyethylene Glycol 3350 17 GM PACKET PO ×3 (04:35→21:52)
[2022-03-27] MEDS: oxyCODONE HCl Cr 10 MG Tablet PO ×2 (06:05→18:14)
[2022-03-27] MEDS: Fluticasone 0.05% 1 SPRAY NASAL.SRY 2 SPRAY NASAL (06:06)
[2022-03-27] MEDS: Enoxaparin 40 MG/0.4 ML Syringe SC (06:08)
[2022-03-27] MEDS: Lidocaine 5% 35GM Tube 1 APPLIC TOPICAL ×4 (06:12→23:19)
[2022-03-27] MEDS: Juven (unflavored) Packet 1 PACKET PO ×2 (07:46→18:14)
[2022-03-27] MEDS: Gabapentin 300 MG Capsule PO ×2 (07:46→18:14)
--- NOTE | 2022-03-27 10:47 | MDS.RN ---
Information for the mds was obtained from review of the clinical record, interview of resident, staff, and direct observation of resident's care.
[2022-03-27] MEDS: Rizatriptan Benzoate 10 MG Tablet PO (14:13)
--- NOTE | 2022-03-27 14:24 | WOUNDNOTE ---
In to reassess the radiation chiang. all are improving. patient states the vaginal area and hien anal areas are still sore. the open areas in the groin are now healed. plan to continue current treatment. will monitor.
[2022-03-27 15:06] VITALS: BP 102/65; PULSE 125; RESP 16; TEMP 36.6; O2SAT 94
[2022-03-27] MEDS: Famotidine 20 MG Tablet PO (21:53)
[2022-03-27 22:00] VITALS: PULSE 106; RESP 18
[2022-03-27] MEDS: Acetaminophen 325 MG Tablet 650 MG PO (23:35)
[2022-03-28] MEDS: oxyCODONE 5 MG Tablet PO ×3 (03:11→13:25)
[2022-03-28] MEDS: Lidocaine 5% 35GM Tube 1 APPLIC TOPICAL ×4 (04:51→21:45)
[2022-03-28] MEDS: Loratadine 10 MG Tablet PO (05:01)
[2022-03-28] MEDS: Levothyroxine 100 MCG Tablet 200 MCG PO (05:01)
[2022-03-28] MEDS: Pantoprazole Sodium 40 MG Tablet PO (05:01)
[2022-03-28] MEDS: Polyethylene Glycol 3350 17 GM PACKET PO ×2 (05:01→13:25)
[2022-03-28] MEDS: Oxybutynin 5 MG Tablet PO (05:01)
[2022-03-28] MEDS: Enoxaparin 40 MG/0.4 ML Syringe SC (05:01)
[2022-03-28] MEDS: oxyCODONE HCl Cr 10 MG Tablet PO (05:01)
[2022-03-28] MEDS: Fluticasone 0.05% 1 SPRAY NASAL.SRY 2 SPRAY NASAL (05:02)
[2022-03-28] MEDS: Juven (unflavored) Packet 1 PACKET PO (07:40)
[2022-03-28] MEDS: Gabapentin 300 MG Capsule PO (07:42)
[2022-03-28] MEDS: Acetaminophen 325 MG Tablet 650 MG PO (09:26)
[2022-03-28 09:28] VITALS: PULSE 112
[2022-03-28 15:37] VITALS: BP 100/63; PULSE 117; RESP 16; TEMP 35.8; O2SAT 95
[2022-03-28] MEDS: Ondansetron ODT 4 MG Tablet 8 MG PO (17:43)
--- NOTE | 2022-03-28 18:17 | NURSING ---
complains of nausea and heart burn refused supper. asking for a few saltine crackers at this time. Requesting to hold medicaitons at this time and check back later.
[2022-03-28] MEDS: Famotidine 20 MG Tablet PO (20:13)
--- NOTE | 2022-03-28 20:40 | NURSING ---
Patient continues with nausea, pain in abdomen. Scheduled Pepcid administered. No other medications administered at this time. Patient also c/o pain in arm from receiving COVID booster yesterday, 03/27/22. Will continue to monitor.
[2022-03-29] MEDS: oxyCODONE 5 MG Tablet PO ×4 (03:56→21:53)
--- NOTE | 2022-03-29 06:55 | NURSING ---
Patient continues to have severe abdominal pain this morning. Is passing gas at times. Refusing medications at this time. Dr. Silva notified of condition. Will continue to monitor.
[2022-03-29] MEDS: Lidocaine 5% 35GM Tube 1 APPLIC TOPICAL ×3 (07:07→21:56)
--- NOTE | 2022-03-29 08:09 | RAD_ITS ---
STUDY: X-RAY - ABDOMEN/PELVIS REASON FOR EXAM: Female, 52 years old. Left upper abdominal pain. Patient has a history of anal carcinoma. TECHNIQUE: Single AP view of the abdomen / pelvis. COMPARISON: None. FINDINGS: Normal visualized lung bases. There is an abundance of fecal material throughout the colon. The visualized liver, spleen and kidneys are grossly normal in size and morphology. Normal soft tissue structures. There are degenerative changes of the visualized lower lumbar spine. RAD/Abdomen Single View IMPRESSION: Large amount of fecal material is seen in the colon. Electronically Signed: Steve Prince MD at 10:43 EDT ,
[2022-03-29] MEDS: Mag Hydrox/Al Hydrox/Simeth 30 ML UDC PO (09:18)
--- NOTE | 2022-03-29 11:30 | NURSING ---
Dr. Silva updated on pt's KUB results N.O. For 300 ml Mag Citrate order read back.
[2022-03-29] MEDS: Magnesium Citrate 300 ML PO (12:05)
[2022-03-29 15:23] VITALS: BP 114/87; PULSE 123; RESP 16; TEMP 37.1; O2SAT 95
[2022-03-29] MEDS: Gabapentin 300 MG Capsule PO (17:31)
[2022-03-29] MEDS: Oxybutynin 5 MG Tablet PO (17:31)
[2022-03-29] MEDS: oxyCODONE HCl Cr 10 MG Tablet PO (17:31)
--- NOTE | 2022-03-29 19:40 | NURSING ---
Dr. Silva updated on pt's KUB N.O. for 300 ml of mag citrate order read back. s
[2022-03-29] MEDS: Famotidine 20 MG Tablet PO (21:55)
[2022-03-29 22:00] VITALS: PULSE 112; RESP 16; O2SAT 95
[2022-03-30 05:54] LABS: Absolute Lymphocyte Count 1.01 X10^3/uL (0.83-4.51); Absolute Neutrophil Count 3.1 X10^3/uL (2.0-7.7); Basophil# 0.02 X10^3/uL; Basophil% 0.4 % (0-1); Hematocrit 32.6 % (37-47); Hemoglobin 10.8 g/dL (12.0-15.0); Lymphocyte # 1.01 X10^3/ul (0.83-4.51); Mean Corp Hgb Conc 33.1 g/dL (32-36); Mean Corpuscular Hgb 31.7 pg (27.0-32.0); Mean Corpuscular Volume 95.6 fL (81-99); Mean Platelet Vol. 8.5 fl (6.2-12.0); Monocyte# 0.66 X10^3/uL; Monocyte% 13.7 % (0-10); NRBC Flagged by Analyzer 0 % (0-5); Neutrophil # 3.05 X10^3/uL (2.7-7.7); Neutrophil % 63.4 % (47-70); Platelet Count 303 K/mm3 (150-450); RBC Distribution Width CV 19.1 % (11.6-14.6); Red Blood Count 3.41 M/mm3 (4.2-5.4); White Blood Count 4.8 K/mm3 (4.4-11.0)
[2022-03-30 06:12] LABS: Anion Gap 5 (5-15); BUN 15 mg/dL (7-18); BUN/Creat Ratio 20.6 RATIO (10-20); Calcium,Total 8.9 mg/dL (8.5-10.1); Chloride 105 mmol/L (98-107); Creatinine, Serum 0.73 mg/dL (0.55-1.02); EST Glomerular Filtration Rate 90 mL/min (>60); Est Glom Filt Rate - Afr Amer 109 mL/min (>60); Estimated Creatinine Clearance 72.92 ml/min; Glucose 101 mg/dL (74-106); Potassium 3.6 mmol/L (3.5-5.1); Sodium Level 139 mmol/L (136-145)
[2022-03-30] MEDS: oxyCODONE HCl Cr 10 MG Tablet PO ×2 (06:26→18:15)
[2022-03-30] MEDS: Oxybutynin 5 MG Tablet PO ×2 (06:28→18:15)
[2022-03-30] MEDS: Enoxaparin 40 MG/0.4 ML Syringe SC (06:28)
[2022-03-30] MEDS: Pantoprazole Sodium 40 MG Tablet PO (06:29)
[2022-03-30] MEDS: Levothyroxine 100 MCG Tablet 200 MCG PO (06:29)
[2022-03-30] MEDS: Lidocaine 5% 35GM Tube 1 APPLIC TOPICAL ×4 (06:30→23:41)
[2022-03-30] MEDS: Gabapentin 300 MG Capsule PO ×2 (09:11→18:25)
[2022-03-30] MEDS: Juven (unflavored) Packet 1 PACKET PO ×2 (09:11→18:16)
[2022-03-30 10:00] VITALS: PULSE 114; RESP 16; O2SAT 98
[2022-03-30 15:43] VITALS: BP 92/64; PULSE 110; RESP 20; TEMP 37; O2SAT 94
[2022-03-30] MEDS: Polyethylene Glycol 3350 17 GM PACKET PO ×2 (16:19→23:34)
[2022-03-30] MEDS: Acetaminophen 325 MG Tablet 650 MG PO ×2 (16:44→23:38)
[2022-03-30] MEDS: Loratadine 10 MG Tablet PO (18:15)
[2022-03-30] MEDS: Rizatriptan Benzoate 10 MG Tablet PO (18:15)
[2022-03-30] MEDS: Ergocalciferol 1.25 MG (50, 000 UNIT) Capsule PO (18:15)
[2022-03-30] MEDS: Famotidine 20 MG Tablet PO (23:34)
[2022-03-31] MEDS: oxyCODONE HCl Cr 10 MG Tablet PO ×2 (07:21→17:41)
[2022-03-31] MEDS: Oxybutynin 5 MG Tablet PO ×2 (07:22→17:38)
[2022-03-31] MEDS: Loratadine 10 MG Tablet PO ×2 (07:22→17:38)
[2022-03-31] MEDS: Levothyroxine 100 MCG Tablet 200 MCG PO (07:24)
[2022-03-31] MEDS: Pantoprazole Sodium 40 MG Tablet PO (07:25)
[2022-03-31] MEDS: Enoxaparin 40 MG/0.4 ML Syringe SC (07:25)
[2022-03-31] MEDS: Gabapentin 300 MG Capsule PO ×2 (08:18→17:39)
[2022-03-31] MEDS: Juven (unflavored) Packet 1 PACKET PO ×2 (08:18→17:38)
[2022-03-31] MEDS: Acetaminophen 325 MG Tablet 650 MG PO (10:51)
[2022-03-31] MEDS: Lidocaine 5% 35GM Tube 1 APPLIC TOPICAL ×3 (10:52→23:13)
[2022-03-31 14:23] VITALS: BP 114/71; PULSE 91; RESP 14; TEMP 36.2; O2SAT 96
[2022-03-31] MEDS: Famotidine 20 MG Tablet PO (23:12)
[2022-03-31 23:30] VITALS: PULSE 98; O2SAT 94
[2022-04-01] MEDS: Fluticasone 0.05% 1 SPRAY NASAL.SRY 2 SPRAY NASAL (06:40)
[2022-04-01] MEDS: Enoxaparin 40 MG/0.4 ML Syringe SC (06:41)
[2022-04-01] MEDS: Polyethylene Glycol 3350 17 GM PACKET PO (06:41)
[2022-04-01] MEDS: Loratadine 10 MG Tablet PO ×2 (06:42→18:15)
[2022-04-01] MEDS: Pantoprazole Sodium 40 MG Tablet PO (06:42)
[2022-04-01] MEDS: oxyCODONE HCl Cr 10 MG Tablet PO ×2 (06:42→18:20)
[2022-04-01] MEDS: Oxybutynin 5 MG Tablet PO ×2 (06:43→18:15)
[2022-04-01] MEDS: Levothyroxine 100 MCG Tablet 200 MCG PO (06:43)
[2022-04-01] MEDS: Lidocaine 5% 35GM Tube 1 APPLIC TOPICAL ×4 (06:53→22:30)
[2022-04-01] MEDS: Gabapentin 300 MG Capsule PO ×2 (08:10→18:20)
[2022-04-01] MEDS: Juven (unflavored) Packet 1 PACKET PO ×2 (08:10→18:15)
[2022-04-01 08:33] VITALS: PULSE 100
[2022-04-01 15:06] VITALS: BP 95/64; PULSE 108; RESP 18; TEMP 36.8; O2SAT 93
[2022-04-01] MEDS: Famotidine 20 MG Tablet PO (20:08)
[2022-04-02] MEDS: oxyCODONE 5 MG Tablet PO ×2 (00:35→12:27)
--- NOTE | 2022-04-02 01:16 | NURSING ---
Patient on BSC in severe pain, having bladder spasms. States she feels like she has to pee, but nothing is coming out. Mcclain bag had no urine in it. Positioned patient in bed, deflated balloon and attempted to readjust catheter, but no urine noted in catheter. Catheter removed and new catheter placed. Urine noted to flow into catheter bag, with a total of 400ml output. A small amount of blood noted at beginning of urine flow. Patient stated she had relief, no bladder spasms noted. Will continue to monitor.
[2022-04-02] MEDS: Lidocaine 5% 35GM Tube 1 APPLIC TOPICAL ×4 (03:15→22:01)
[2022-04-02] MEDS: oxyCODONE HCl Cr 10 MG Tablet PO ×2 (06:54→17:12)
[2022-04-02] MEDS: Oxybutynin 5 MG Tablet PO ×2 (06:55→17:13)
[2022-04-02] MEDS: Levothyroxine 100 MCG Tablet 200 MCG PO (06:55)
[2022-04-02] MEDS: Pantoprazole Sodium 40 MG Tablet PO (06:55)
[2022-04-02] MEDS: Loratadine 10 MG Tablet PO ×2 (06:55→17:13)
[2022-04-02] MEDS: Enoxaparin 40 MG/0.4 ML Syringe SC (06:56)
[2022-04-02] MEDS: Gabapentin 300 MG Capsule PO ×3 (07:59→17:12)
[2022-04-02] MEDS: Juven (unflavored) Packet 1 PACKET PO ×2 (07:59→16:07)
--- NOTE | 2022-04-02 14:55 | WOUNDNOTE ---
In to reassess the radiation chiang. all are now nearly healed. there is some peeling of the skin. patient states pain is much improved as well. no signs of infection noted. will monitor.
[2022-04-02 15:58] VITALS: BP 94/68; PULSE 65; RESP 14; TEMP 36.9; O2SAT 95
[2022-04-02] MEDS: Polyethylene Glycol 3350 17 GM PACKET PO ×2 (16:07→21:54)
[2022-04-02] MEDS: Famotidine 20 MG Tablet PO (21:57)
[2022-04-02 22:25] VITALS: PULSE 100; RESP 16; O2SAT 95
[2022-04-03] MEDS: oxyCODONE HCl Cr 10 MG Tablet PO ×2 (06:33→18:14)
[2022-04-03] MEDS: Levothyroxine 100 MCG Tablet 200 MCG PO (06:35)
[2022-04-03] MEDS: Pantoprazole Sodium 40 MG Tablet PO (06:35)
[2022-04-03] MEDS: Loratadine 10 MG Tablet PO ×2 (06:35→18:12)
[2022-04-03] MEDS: Enoxaparin 40 MG/0.4 ML Syringe SC (06:36)
[2022-04-03] MEDS: Polyethylene Glycol 3350 17 GM PACKET PO ×3 (06:36→22:01)
[2022-04-03] MEDS: Oxybutynin 5 MG Tablet PO ×2 (06:36→18:12)
[2022-04-03] MEDS: Lidocaine 5% 35GM Tube 1 APPLIC TOPICAL ×4 (06:44→22:02)
[2022-04-03] MEDS: Juven (unflavored) Packet 1 PACKET PO ×2 (08:02→18:11)
[2022-04-03] MEDS: Gabapentin 300 MG Capsule PO ×3 (08:03→18:11)
--- NOTE | 2022-04-03 12:58 | NURSING ---
Pt c/o of bladder spasms and catheter was leaking urine. Pt requested Ibarra removed d/t bladder spasms. This nurse removed ibarra cath. Pt voiced relief from spasm.
[2022-04-03 13:03] VITALS: PULSE 99; O2SAT 93
--- NOTE | 2022-04-03 14:11 | NURSING ---
Notified patient that staff member tested positive- Alerted staff that we do not need to call anyone further.
[2022-04-03 15:31] VITALS: BP 96/64; PULSE 110; RESP 16; TEMP 36.3; O2SAT 95
[2022-04-03 18:11] VITALS: BP 102/65; PULSE 105
[2022-04-03] MEDS: Metoprolol Tartrate 25 MG Tablet 12.5 MG PO (18:11)
[2022-04-03] MEDS: Famotidine 20 MG Tablet PO (22:02)
[2022-04-04] MEDS: Lidocaine 5% 35GM Tube 1 APPLIC TOPICAL ×4 (02:35→21:44)
[2022-04-04] MEDS: Polyethylene Glycol 3350 17 GM PACKET PO ×3 (06:38→21:40)
[2022-04-04] MEDS: Levothyroxine 100 MCG Tablet 200 MCG PO (06:39)
[2022-04-04] MEDS: oxyCODONE HCl Cr 10 MG Tablet PO ×2 (06:39→17:37)
[2022-04-04] MEDS: Loratadine 10 MG Tablet PO ×2 (06:40→17:33)
[2022-04-04] MEDS: Enoxaparin 40 MG/0.4 ML Syringe SC (06:40)
[2022-04-04] MEDS: Pantoprazole Sodium 40 MG Tablet PO (06:40)
[2022-04-04] MEDS: Oxybutynin 5 MG Tablet PO ×2 (06:40→17:33)
[2022-04-04] MEDS: Fluticasone 0.05% 1 SPRAY NASAL.SRY 2 SPRAY NASAL (06:42)
[2022-04-04 06:49] VITALS: BP 93/61; PULSE 99
[2022-04-04 06:51] VITALS: PULSE 99
[2022-04-04] MEDS: Metoprolol Tartrate 25 MG Tablet 12.5 MG PO (06:51)
[2022-04-04] MEDS: Juven (unflavored) Packet 1 PACKET PO ×2 (08:01→17:31)
[2022-04-04] MEDS: Gabapentin 300 MG Capsule PO ×3 (08:02→17:37)
[2022-04-04 08:09] VITALS: BP 92/58; PULSE 87
[2022-04-04 14:43] VITALS: BP 107/67; PULSE 109; RESP 18; TEMP 36.5; O2SAT 95
[2022-04-04] MEDS: Famotidine 20 MG Tablet PO (21:40)
[2022-04-04] MEDS: Mag Hydrox/Al Hydrox/Simeth 30 ML UDC PO (21:44)
[2022-04-04 22:00] VITALS: PULSE 100; RESP 16; O2SAT 94
[2022-04-05] MEDS: Lidocaine 5% 35GM Tube 1 APPLIC TOPICAL ×4 (06:59→19:36)
[2022-04-05] MEDS: Enoxaparin 40 MG/0.4 ML Syringe SC (07:00)
[2022-04-05] MEDS: Polyethylene Glycol 3350 17 GM PACKET PO (07:00)
[2022-04-05 07:01] VITALS: BP 102/62; PULSE 102
[2022-04-05] MEDS: Metoprolol Tartrate 25 MG Tablet 12.5 MG PO (07:01)
[2022-04-05] MEDS: Levothyroxine 100 MCG Tablet 200 MCG PO (07:01)
[2022-04-05] MEDS: Pantoprazole Sodium 40 MG Tablet PO (07:01)
[2022-04-05] MEDS: Oxybutynin 5 MG Tablet PO ×2 (07:02→17:46)
[2022-04-05] MEDS: Loratadine 10 MG Tablet PO ×2 (07:03→17:46)
[2022-04-05] MEDS: oxyCODONE HCl Cr 10 MG Tablet PO ×2 (07:05→17:46)
[2022-04-05] MEDS: Fluticasone 0.05% 1 SPRAY NASAL.SRY 2 SPRAY NASAL (07:06)
[2022-04-05] MEDS: Juven (unflavored) Packet 1 PACKET PO ×2 (08:10→17:46)
[2022-04-05] MEDS: Gabapentin 300 MG Capsule PO ×3 (08:10→17:46)
[2022-04-05] MEDS: Ondansetron ODT 4 MG Tablet 8 MG PO (08:14)
[2022-04-05 10:00] VITALS: PULSE 92; RESP 18; O2SAT 92
[2022-04-05 15:21] VITALS: BP 96/53; PULSE 102; RESP 16; TEMP 36.8; O2SAT 96
[2022-04-05] MEDS: Famotidine 20 MG Tablet PO (19:38)
[2022-04-06] MEDS: Enoxaparin 40 MG/0.4 ML Syringe SC (06:04)
[2022-04-06] MEDS: oxyCODONE HCl Cr 10 MG Tablet PO (06:04)
[2022-04-06] MEDS: Loratadine 10 MG Tablet PO ×2 (06:05→17:59)
[2022-04-06] MEDS: Oxybutynin 5 MG Tablet PO ×2 (06:05→17:59)
[2022-04-06] MEDS: Lidocaine 5% 35GM Tube 1 APPLIC TOPICAL ×4 (06:05→21:47)
[2022-04-06] MEDS: Pantoprazole Sodium 40 MG Tablet PO (06:05)
[2022-04-06] MEDS: Levothyroxine 100 MCG Tablet 200 MCG PO (06:05)
[2022-04-06 06:06] VITALS: BP 100/59; PULSE 102
[2022-04-06] MEDS: Fluticasone 0.05% 1 SPRAY NASAL.SRY 2 SPRAY NASAL (06:06)
[2022-04-06 06:51] LABS: Absolute Neutrophil Count 3.3 X10^3/uL (2.0-7.7); Basophil# 0.06 X10^3/uL; Eosinophil# 0.71 X10^3/uL; Hematocrit 37.9 % (37-47); Hemoglobin 12.3 g/dL (12.0-15.0); Lymphocyte % 18.6 % (19-41); Mean Corp Hgb Conc 32.5 g/dL (32-36); Mean Corpuscular Hgb 31.5 pg (27.0-32.0); Mean Corpuscular Volume 97.2 fL (81-99); Mean Platelet Vol. 8.7 fl (6.2-12.0); Monocyte# 0.69 X10^3/uL; Monocyte% 11.7 % (0-10); NRBC Flagged by Analyzer 0 % (0-5); Neutrophil # 3.28 X10^3/uL (2.7-7.7); Neutrophil % 55.7 % (47-70); POSITIVE MORPHOLOGY YES; Platelet Count 248 K/mm3 (150-450); RBC Distribution Width CV 17.3 % (11.6-14.6); RBC Distribution Width SD 62.3 fl (35.1-43.9); White Blood Count 5.9 K/mm3 (4.4-11.0)
[2022-04-06 07:16] LABS: Anion Gap 7 (5-15); BUN 16 mg/dL (7-18); BUN/Creat Ratio 19.2 RATIO (10-20); Calcium,Total 8.9 mg/dL (8.5-10.1); Chloride 105 mmol/L (98-107); Creatinine, Serum 0.83 mg/dL (0.55-1.02); EST Glomerular Filtration Rate 77 mL/min (>60); Est Glom Filt Rate - Afr Amer 93 mL/min (>60); Estimated Creatinine Clearance 64.13 ml/min; Glucose 97 mg/dL (74-106); Potassium 3.7 mmol/L (3.5-5.1); Sodium Level 140 mmol/L (136-145)
[2022-04-06 07:18] LABS: Differential Comment SCANNED; Differential Indicated SCAN CRITERIA MET
[2022-04-06] MEDS: Gabapentin 300 MG Capsule PO ×3 (08:14→17:59)
[2022-04-06] MEDS: Juven (unflavored) Packet 1 PACKET PO ×2 (08:14→17:59)
[2022-04-06] MEDS: Polyethylene Glycol 3350 17 GM PACKET PO ×2 (13:57→22:05)
[2022-04-06 15:13] VITALS: BP 93/57; PULSE 104; RESP 16; TEMP 36.4; O2SAT 95
[2022-04-06] MEDS: Ergocalciferol 1.25 MG (50, 000 UNIT) Capsule PO (17:59)
[2022-04-06] MEDS: oxyCODONE 5 MG Tablet PO (18:07)
[2022-04-06 20:00] VITALS: BP 75/54; PULSE 102; RESP 18; O2SAT 95
[2022-04-06 20:05] VITALS: BP 90/60; PULSE 102; RESP 18; TEMP 36.5; O2SAT 95
--- NOTE | 2022-04-06 20:18 | EKG12_ITS ---
Test Reason : CP Blood Pressure : / mmHG Vent. Rate : 101 BPM Atrial Rate : 101 BPM P-R Int : 174 ms QRS Dur : 074 ms QT Int : 344 ms P-R-T Axes : 049 -27 012 degrees QTc Int : 446 ms Sinus tachycardia Low voltage QRS Borderline ECG When compared with ECG of 10-MAR-2022 15:12, No significant change was found Confirmed by EVELIN MARRUFO, LOYD ([id number]), fashion editor HAYDEE FRASER ([id number]) on 04/10/2022 12:48:26 PM Referred By: AINSLEY Confirmed By:LOYD WATERS MD
[2022-04-06] MEDS: Albuterol Sulfate 8 gm Inhaler (60 puffs) 1 PUFF INHALATION (20:37)
--- NOTE | 2022-04-06 20:39 | NURSING ---
Offered O2 several times d/t chest pressure with spO2 at 95% on room air and pt declines. Took Ventolin inhaler per dr order. Sitting in between between semi-fowlers and fowlers position. Performing deep breathing exercises. Has lavender oil at bedside. In no acute distress. Call light w/ in reach.
--- NOTE | 2022-04-06 20:49 | NURSING ---
Addendum entered by Yancy Whiting 04/07/22 07:28: This AM patient feels groggy, she thinks from xanax. She has dizziness which she's had since yesterday, she report chest pressure is all but gone. Denies any trouble breathing. Main complaint is feeling like she is not swallowing right since last night, she did have yogurt at bedtime and says she didn't have any trouble with it. She says she's had esophageal dilation earlier this year. Left note for Dr. Yu to address. Addendum entered by Yancy Whiting 04/07/22 04:37: Xanax given just after 9pm. When given her other meds around 10pm she said she felt groggy from the xanax but reported that her symptoms were improving. Labs normal, updated patient of results. BP re-checked and was 90/64. Wound care done, she tolerated well, she denied any needs at that time. Original Note: Went in to check on patient at 8pm, she was saying her chest feels tight and she is having some shortness of breath, asking for her vitals to be checked. Vitals checked, BP low on machine, re-check w/ manual cuff better, still low normal. Heart rate low 100s, rate regular. Otherwise vitals stable. 95% on room air, not tachypneic. Lungs sound clear to auscultation. She describes chest pressure as 9/10 from sternum across left chest, not radiating. RN called respiratory therapist for EKG. RN stayed with patient, she is anxious about her symptoms, crying on and off, started to feel like her throat is tight. EKG done, sinus tach. Paged Dr. Yu @[phone]. Reviewed symptoms, vitals, EKG results with MD, verbal orders for troponin, d-dimer, and 0.25mg xanax q6. Orders entered.
[2022-04-06] MEDS: ALPRAZolam 0.25 MG Tablet PO (21:06)
[2022-04-06 21:19] LABS: D-Dimer Quantitative (DVT/PE) 0.41 FEU/ug/m (0.27-0.49)
[2022-04-06 21:28] LABS: Troponin-I HS 3 pg/mL (3.0-54.0)
[2022-04-06] MEDS: Famotidine 20 MG Tablet PO (22:08)
[2022-04-07 06:04] VITALS: BP 92/60; PULSE 101
[2022-04-07] MEDS: Enoxaparin 40 MG/0.4 ML Syringe SC (06:05)
[2022-04-07] MEDS: Pantoprazole Sodium 40 MG Tablet PO (06:06)
[2022-04-07] MEDS: Levothyroxine 100 MCG Tablet 200 MCG PO (06:06)
[2022-04-07] MEDS: Polyethylene Glycol 3350 17 GM PACKET PO ×3 (06:07→22:31)
[2022-04-07] MEDS: Loratadine 10 MG Tablet PO ×2 (06:07→17:05)
[2022-04-07] MEDS: Oxybutynin 5 MG Tablet PO ×2 (06:07→17:05)
[2022-04-07] MEDS: oxyCODONE HCl Cr 10 MG Tablet PO ×2 (06:09→17:09)
[2022-04-07] MEDS: Lidocaine 5% 35GM Tube 1 APPLIC TOPICAL ×4 (06:13→23:09)
[2022-04-07 06:15] VITALS: BP 90/58
[2022-04-07] MEDS: Juven (unflavored) Packet 1 PACKET PO ×2 (07:59→17:02)
[2022-04-07] MEDS: Mag Hydrox/Al Hydrox/Simeth 30 ML UDC PO ×2 (08:04→14:34)
[2022-04-07] MEDS: Gabapentin 300 MG Capsule PO ×3 (08:04→17:09)
[2022-04-07 09:50] VITALS: PULSE 64; RESP 18; O2SAT 96
--- NOTE | 2022-04-07 13:35 | PCM.PROGNOTE ---
Subjective Subjective Afebrile VS BP is on the low side and she is c/o dizziness with sitting up and standing. She was started on Lopressor by Dr. Silva for tachycardia. Maintaining appropriate oxygen saturation on RA Oral intake is good. She drinks at least 3 800 cc cups of water daily and she has been forcing herself to eat so she can get better. Discussed with nursing -Lopressor has been held for the past 2 days secondary to low blood pressures. Medication list reviewed. I am seeing the patient because she had substernal CP last night. It was burning in nature and her voice became coarse. The EKG showed ST and no ST depression or ST elevation. Troponin was WNL and the D-Dimer was negative. The pain did not radiate. She was not diaphoretic. She has problems with palpitations and racing heart at times and she sits down to meditate and she is able to bring her HR down. She sleeps well and she has a good attitude and a good mood. Tells me that she is feeling a lot better since admission. Her backside no longer is painful with BM's or urination. Denies a sore mouth or painful swallowing. The TSH on 03/14/22 was 32.8. She is on Levothyroxine 200 mcg daily. Objective Data Objective Data Vital Signs: Vital Signs Temp Pulse Resp BP Pulse Ox O2 Del Method O2 Flow Rate 97.7 F L 101 H 18 90/58 L 95 Room Air 92 04/06/22 20:05 04/07/22 06:04 04/06/22 20:05 04/07/22 06:15 04/06/22 20:05 04/06/22 20:05 03/27/22 22:00 Oxygen Flow Rate (L/min) 92 Oxygen Delivery Method Room Air Weight: 194 lb 12.8 oz Body Mass Index (BMI) 34.2 Intake & Output: Intake and Output for Last 24 Hours 04/05/22 04/06/22 04/07/22 23:59 23:59 23:59 Intake Total 240 / 240 600 / 600 600 / 600 Balance 240 / 240 600 / 600 600 / 600 Lab / Micro Data Result Diagrams: 04/06/22 06:40 04/06/22 06:40 Labs: Laboratory Results - last 24 hr 04/06/22 21:00: D-Dimer Quant (PE/DVT) 0.41 04/06/22 21:00: Troponin I High Sens 3 Micro: Microbiology 04/04/22 10:15 Nasal Secretion SARS-CoV-2 Antigen (Rapid) - Final 03/25/22 09:45 Nasal Secretion SARS-CoV-2 Antigen (Rapid) - Final 03/21/22 09:02 Urine Catheter - Mcclain Urine Culture - Final Culture exhibits no growth. 03/22/22 09:35 Nasal Secretion SARS-CoV-2 Antigen (Rapid) - Final Physical Exam Const alert, oriented x3 and no apparent distress General Appearance: cooperative HEENT moist oral mucous membranes Cardio regular rate Cardio Narrative: Increased HR in the low 100's. Psych thought process normal, cooperative and affect normal Appearance: appropriate Attitude: No agitated Activity / Motor Behavior: Negative for restless Mood & Affect: anxious; Negative for depressed Assessment & Plan Assessment/Plan (1) Anxiety: PLAN: Xanax helped last night but, made her loopy. I think the ST is due to anxiety and she is agreeable to a trial of Buspar. (2) Gastroesophageal reflux disease: PLAN: She is on a PPI and also an H2 anselmo at bedtime. Rarely drinks caffeine and is not a smoker. Will continue the current medications. (3) Sinus tachycardia: PLAN: DC the Lopressor due to low BP and dizziness. I suspect the tachycardia is either due to anxiety or to iatrogenic hyperthyroidism.....she is on 200 mcg daily of Levothyroxine. Will check a TSH, T4 and a cortisol in the AM. (4) Chest pain: PLAN: Suspect due to reflux and/or anxiety. GI cocktail entered PRN. If she continues to have CP would consider a trial of Reglan. Charges/Coding Visit Charges Inpatient E&M: 97447 SNF Subs L2
[2022-04-07 14:12] VITALS: BP 106/52; BP 95/63; BP 96/66; PULSE 103; PULSE 125; PULSE 133
[2022-04-07] MEDS: busPIRone 5 MG Tablet PO ×2 (14:35→22:30)
[2022-04-07 15:12] LABS: T4 Free Direct 1.53 ng/dL (0.76-1.46); Thyroid Stim Hormone (TSH) 0.83 uIU/mL (0.358-3.74)
[2022-04-07] MEDS: 0.9% Saline Lock 10 ML Syringe IV (15:36)
[2022-04-07] MEDS: Cosyntropin 0.25 MG in 0.9% Normal Saline (Pres. free 1 ML 30 MG IV (15:36)
[2022-04-07 16:00] VITALS: PULSE 72; RESP 17; TEMP 36.1; O2SAT 91
[2022-04-07] MEDS: Famotidine 20 MG Tablet PO (22:30)
[2022-04-07] MEDS: Hydrocortisone Sod Succinate 100 MG/2 ML Vial 50 MG IV (22:56)
--- NOTE | 2022-04-08 05:55 | NURSING ---
Pt drowsy. Reports GI upset. Offered muriel chance and pt declines. Offered saline crackers and is agreeable. Would like to take po meds later this am. Will continue to monitor.
[2022-04-08] MEDS: Levothyroxine 100 MCG Tablet 200 MCG PO (07:05)
--- NOTE | 2022-04-08 07:05 | NURSING ---
IV site to RFA chiang when flushed. Site without redness, warmth, or swelling. Pt reports discomfort to affected area when sleeping. IV site dc'ed. DSD applied and secured w/ hypoallergienic tape. Solucortef held until IV access achieved. Will report to oncoming nurse.
[2022-04-08] MEDS: Pantoprazole Sodium 40 MG Tablet PO ×2 (07:06→17:46)
[2022-04-08] MEDS: Enoxaparin 40 MG/0.4 ML Syringe SC (07:06)
[2022-04-08] MEDS: Juven (unflavored) Packet 1 PACKET PO ×2 (08:34→17:56)
--- NOTE | 2022-04-08 09:12 | CASEMGMT ---
Addendum entered by Patti Landon 04/08/22 14:57: Updated pt that insurance approved with [facility] 04/12. Pt appreciative. SW to continue to follow. Original Note: Social Work Spoke with pt to follow up on improvement and DC plans as insurance update is this date. Pt expressed this morning she is having upper GI pain and bowel issues; wounds healed well, just slight pain. Pt reports started her on some IV cortisol yesterday and consulted an treatment coordinator for an adrenal insufficiency that could contribute to abnormal BP and HR. Pt requests to continue working with therapy on transitioning from a FWW to cane, as that is closer to baseline, along with regaining UE strength. Pt reports to still being weak. pt's SO will still be working, thus pt will be home during the day and need to carry the FWW up and down the stairs, which she does not feel comfortable doing. Once pt discharges home, SW to order HHC, bed rail and FWW or cane. SW to continue to follow for DC planning. Patti Landon, KIERAN DONALDW
[2022-04-08 09:33] VITALS: BP 105/60; BP 113/64; BP 99/59; PULSE 118; PULSE 133; PULSE 136
[2022-04-08] MEDS: busPIRone 5 MG Tablet PO (13:35)
[2022-04-08 13:42] VITALS: BP 109/69; PULSE 120; RESP 14; TEMP 36.8; O2SAT 95
--- NOTE | 2022-04-08 16:38 | PCM.PROGNOTE ---
Subjective Subjective Afebrile VSS - The BP today is better when she stands however she gets very tachycardic. Maintaining appropriate oxygen saturation on RA Oral intake is good. Discussed with nursing - no problems that need addressed Reviewed the PT/OT notes Medication list reviewed. She is c/o lightheadedness, heartburn and a bad taste in her mouth. She is on a PPI She is always lying down when I enter her room and this may be contributing to reflux/heart burn. She denies painful swallowing but, I would not be surprised if she would have kym esophagitis. She is also c/o epigastric pain? This could be due to the secondary adrenal insufficiency. Objective Data Objective Data Vital Signs: Vital Signs Temp Pulse Resp BP Pulse Ox O2 Del Method O2 Flow Rate 98.2 F 120 H 14 109/69 95 Room Air 92 04/08/22 13:42 04/08/22 13:42 04/08/22 13:42 04/08/22 13:42 04/08/22 13:42 04/08/22 13:42 03/27/22 22:00 Oxygen Flow Rate (L/min) 92 Oxygen Delivery Method Room Air Weight: 187 lb 7 oz Body Mass Index (BMI) 34.2 Intake & Output: Intake and Output for Last 24 Hours 04/06/22 04/07/22 04/08/22 23:59 23:59 23:59 Intake Total 600 / 600 720 / 720 120 / 120 Balance 600 / 600 720 / 720 120 / 120 Lab / Micro Data Result Diagrams: 04/06/22 06:40 04/06/22 06:40 Labs: Laboratory Results - last 24 hr 04/07/22 16:08: Cortisol 27.00 H 04/07/22 16:38: Cortisol 30.10 H Micro: Microbiology 04/04/22 10:15 Nasal Secretion SARS-CoV-2 Antigen (Rapid) - Final 03/25/22 09:45 Nasal Secretion SARS-CoV-2 Antigen (Rapid) - Final 03/21/22 09:02 Urine Catheter - Mcclain Urine Culture - Final Culture exhibits no growth. 03/22/22 09:35 Nasal Secretion SARS-CoV-2 Antigen (Rapid) - Final Physical Exam Const alert, oriented x3 and no apparent distress General Appearance: cooperative and well developed HEENT normocephalic and moist oral mucous membranes HEENT Narrative: The tongue is coated with a yellow white adherent film. She has a bad taste in her mouth. Eyes PERRL and EOMs intact bilaterally Resp normal air movement and clear to auscultation bilaterally Cardio regular rhythm, no murmurs and no gallops Cardio Narrative: Tachycardic even lying down when I examine her. Rhythm is regular. GI GI Narrative: Normal BS's, has some pain with palpation of the epigastric area but, no guarding. She is not distended. Extremity Extremity Narrative: she has puffy hands and swollen feet and the edema is non-pitting. 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 D/W endocrinology. Pt received steroids with her chemo and likely has secondary adrenal insufficiency. Would like to avoid steroids if possible now that she is done with chemo. Will apply LAURO hose. Encourage her to get up out of bed and move around. Continue PT and OT. She has lost several IV's and nursing is unable to get an IV started for NS to volume expand so will start salt tablets. 2. Start Mycelex troches. If she continues to c/o heartburn may need to consult Dr. Hodges to do an EGD and make sure she does not have esophagitis......possibly due to kmy since she has thrush. 3. Continue Protonix but increase to BID. Add Carafate. DC Buspar as it can cause GI distress. 4. Decrease levothyroxine to 0.175 mg daily. there are already repeat thyroid studies ordered. 5. She would like to get off pain medications and has decreased the Oxycontin to 10 mg ONCE a day. She would also like the Gabapentin discontinued. She has not taken any Oxycodone 5 mg since 02/04/22. Charges/Coding Visit Charges Inpatient E&M: 68550 Subs Hosp L2
[2022-04-08] MEDS: Loratadine 10 MG Tablet PO (17:46)
[2022-04-08] MEDS: Sodium Chloride 1 GM Tablet PO (17:46)
[2022-04-08] MEDS: Mag Hydrox/Al Hydrox/Simeth 30 ML UDC PO (17:46)
[2022-04-08] MEDS: Clotrimazole 10 MG Troche MUCOUS MEM ×2 (17:46→21:55)
[2022-04-08] MEDS: Famotidine 20 MG Tablet PO (20:10)
[2022-04-08 20:16] VITALS: PULSE 104; RESP 16; O2SAT 95
[2022-04-09] MEDS: Sodium Chloride 1 GM Tablet PO ×2 (06:43→17:25)
[2022-04-09] MEDS: Levothyroxine 175 MCG Tablet PO (06:44)
[2022-04-09] MEDS: Pantoprazole Sodium 40 MG Tablet PO ×2 (06:44→17:26)
[2022-04-09] MEDS: Clotrimazole 10 MG Troche MUCOUS MEM ×4 (06:46→17:26)
[2022-04-09] MEDS: Enoxaparin 40 MG/0.4 ML Syringe SC (06:46)
[2022-04-09 09:51] VITALS: PULSE 96; O2SAT 97
[2022-04-09] MEDS: Mag Hydrox/Al Hydrox/Simeth 30 ML UDC PO (14:11)
[2022-04-09 15:09] VITALS: BP 128/91; PULSE 106; RESP 15; TEMP 36.2; O2SAT 98
--- NOTE | 2022-04-09 19:40 | RAD_ITS ---
STUDY: X-RAY - ABDOMEN/PELVIS REASON FOR EXAM: Female, 52 years old. Abdominal pain. Diarrhea. TECHNIQUE: Two AP supine views of the abdomen and pelvis. COMPARISON: 03/29/2022. FINDINGS: Normal visualized lung bases. There is an unremarkable bowel gas pattern. There is feces throughout colon without obstruction or distention. There is no demonstrated free abdominal air. The visualized liver, spleen and kidneys are grossly normal in size and morphology. Normal soft tissue structures. Normal visualized osseous structures. RAD/Abdomen Single View (Portable) IMPRESSION: Colonic feces consistent with mild constipation. There is no major interval change. Electronically Signed: Tao Gonzalez DO at 20:33 EDT ,
--- NOTE | 2022-04-09 22:29 | NURSING ---
Patient continues to complain of abdominal discomfort and reflux. She refuses scheduled meds and doesn't feel any of her PRN meds will help. She says she is still having diarrhea and has been since earlier today.
[2022-04-10] MEDS: Levothyroxine 175 MCG Tablet PO (05:30)
[2022-04-10] MEDS: Enoxaparin 40 MG/0.4 ML Syringe SC (05:30)
--- NOTE | 2022-04-10 05:33 | NURSING ---
Addendum entered by Tali Canales 04/10/22 10:37: pt did take miralax d/t KUB results. Original Note: Patient still having diarrhea overnight, says abdominal discomfort is much better and she just wants to keep sleeping. Refused meds this AM except for levothyroxine and lovenox. Triad cream applied once overnight at her request.
[2022-04-10] MEDS: Clotrimazole 10 MG Troche MUCOUS MEM ×4 (08:29→20:50)
[2022-04-10] MEDS: Polyethylene Glycol 3350 17 GM PACKET PO ×2 (08:34→20:50)
--- NOTE | 2022-04-10 08:44 | NURSING ---
Addendum entered by Tali Canales 04/10/22 11:00: dr hill updated, feels its d/t constipation. made aware pt did take miralax this AM which has been held couple days per pt refusing Original Note: paged [facility] for consult. Proposal Analyst stated Dr Hodges will be back on 04/12/22. Zeinab Be only seeing her patients at this time. will call back on 04/[address] Hill.
[2022-04-10] MEDS: Pantoprazole Sodium 40 MG Tablet PO ×2 (11:41→17:55)
--- NOTE | 2022-04-10 11:44 | NURSING ---
pt c/o intermittent sharp pain epigastric area and other times it feels like a stomach ache 8-9/10 pain. encourage pt to take protonix as ordered, given now since refused earlier. pt refusing any pain meds at this time. states she is eating bland foods. pt resting in bed, HOB elevated. call light in reach. hot decaf tea given per pt request.
[2022-04-10 16:00] VITALS: BP 99/64; PULSE 94; RESP 16; TEMP 36.8; O2SAT 93
[2022-04-10 20:30] VITALS: BP 95/68; PULSE 93; RESP 17; TEMP 37.3; O2SAT 96
[2022-04-10] MEDS: Acetaminophen 325 MG Tablet 650 MG PO (20:50)
[2022-04-10] MEDS: Famotidine 20 MG Tablet PO (20:50)
[2022-04-11] MEDS: Polyethylene Glycol 3350 17 GM PACKET PO ×2 (06:24→13:36)
[2022-04-11] MEDS: Enoxaparin 40 MG/0.4 ML Syringe SC (06:25)
[2022-04-11] MEDS: Clotrimazole 10 MG Troche MUCOUS MEM ×5 (06:25→20:16)
[2022-04-11] MEDS: Loratadine 10 MG Tablet PO (06:25)
[2022-04-11] MEDS: Levothyroxine 175 MCG Tablet PO (06:25)
[2022-04-11] MEDS: Pantoprazole Sodium 40 MG Tablet PO ×2 (06:26→18:19)
[2022-04-11 06:48] VITALS: BP 90/61; PULSE 100; RESP 18; TEMP 36.5; O2SAT 94
[2022-04-11 16:00] VITALS: BP 97/63; PULSE 104; RESP 18; TEMP 36.4; O2SAT 96
[2022-04-11] MEDS: Famotidine 20 MG Tablet PO (20:15)
[2022-04-11 23:00] VITALS: PULSE 97; RESP 18; O2SAT 97
[2022-04-12] MEDS: Levothyroxine 175 MCG Tablet PO (05:58)
[2022-04-12] MEDS: Pantoprazole Sodium 40 MG Tablet PO ×2 (05:58→17:25)
[2022-04-12] MEDS: Polyethylene Glycol 3350 17 GM PACKET PO ×2 (06:00→17:25)
[2022-04-12] MEDS: Enoxaparin 40 MG/0.4 ML Syringe SC (06:01)
[2022-04-12] MEDS: Clotrimazole 10 MG Troche MUCOUS MEM ×5 (06:01→22:07)
--- NOTE | 2022-04-12 10:07 | CASEMGMT ---
Addendum entered by Maria Esther Domínguez 04/12/22 15:17: Social Work [facility] delivered cane, pt now refusing due to not covered by insurance. SW informed therapy who feel pt will be safe at home without cane. Pt also states she thinks she may have a cane at home. ARYA Bonilla Original Note: Social Work SW received referral that pt is requesting to discharge. SW met with pt to discuss discharge plans. Pt feels she is much improved and ready to return home at this time. Requesting to set discharge date for tomorrow 04/13/22. Per therapy recommendations SW spoke with pt regarding outpatient therapy. Pt is agreeable and would like to use [facility]. Pt confirms she does have transportation to appointments. SW spoke with pt regarding using a cane or walker for ambulation upon return home as she has been trialing both devices. Pt was able to use the cane today and does not feel a walker is necessary. Pt agreeable to order cane from [facility]. Pt previously discussed with SW need for bedrail, but at this time pt feels she has progressed well enough that this will not be necessary. GREG spoke with Ade at [facility] and a cane will be delivered later today. SW will fax order for outpatient PT to [facility] when order obtained. [facility] to contact pt directly to schedule appointment. Pt states she has needed transportation home. SW offered to contact pt family to inform of discharge plan but pt declined stating she will notify them. Plan: Discharge Home 04/13/22 [facility] for Outpatient PT Cane to be deliver to TCU by ARYA Juarez
--- NOTE | 2022-04-12 13:00 | NURSING ---
Updated pt on Positive staff member pt A&Ox3 and will update family.
--- NOTE | 2022-04-12 14:06 | DS.PCM_ITS ---
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: Status: Acute Code(s): E27.3 - Drug-induced adrenocortical insufficiency (2) Sinus tachycardia: Status: Acute Code(s): R00.0 - Tachycardia, unspecified (3) Orthostatic hypotension: Status: Acute Code(s): I95.1 - Orthostatic hypotension (4) Hypothyroidism: Status: Acute Code(s): E03.9 - Hypothyroidism, unspecified (5) Iatrogenic hyperthyroidism: Status: Acute Code(s): E05.80 - Other thyrotoxicosis without thyrotoxic crisis or storm (6) Gastroesophageal reflux disease: Status: Acute Code(s): K21.9 - Gastro-esophageal reflux disease without esophagitis (7) Thrush: Status: Acute Code(s): B37.0 - Candidal stomatitis (8) Weakness: Status: Acute Code(s): R53.1 - Weakness Plan 52 year old female with below past medical history significant for anal cancer, just finished chemotherapy, radiation, admitted to hospital with UTI, weakness, admitted to TCU with debility, here for rehabilitation, strengthening, prior to discharge home with fiance. * Debility - PT/OT. * Pain - Tylenol 650mg q4h prn, Oxycontin 10mg bid, Oxycodone 5-10mg Q3H prn. * Bowel - Miralax 17gm tid. * Adult immunization - Administer pneumonia vaccine, covid19 vaccine, flu vaccine as appropriate. * DVT prophylaxis - Lovenox 40mg sc daily. * Asthma - Albuterol 1 puff q4h prn. * Nutrition - Ensure Enlive 120ml 4x/day. * Vitamin D deficiency - D2 50,000 units per week. * GERD - Pantoprazole 40mg daily, Famotidine 20mg qhs. * Allergic rhinitis - Loratadine 10mg bid, Flonase spray 1 spray daily. * Neuropathic pain - Gabapentin 300mg bidcm. * GI prophylaxis - Lactobacillus 1 tablet bid. * Hypothyroidism - Levothyroxine 200mcg daily. * Rectal radiation chiang - Xylocaine 2% topical bid, Silvadine 1% topical bid. * Migraine - Rizatriptan 10mg q2h prn. Medications at Discharge Home Medications Lactobacillus acidophilus 10 mg PO BID Supplement 02/19/22 albuterol 90 mcg/actuation aerosol inhaler 90 mcg inhalation Q4H PRN Wheezing 02/19/22 cetirizine 10 mg capsule 10 mg PO BID Allergies 02/19/22 cyanocobalamin (vitamin B-12) 25 mcg tablet 50 mcg PO DAILY Supplement 02/19/22 ergocalciferol (vitamin D2) 50,000 unit tablet 50,000 unit PO QWEEK Supplement 02/19/22 famotidine 20 mg tablet (Pepcid) 20 mg PO QHS GERD 02/19/22 magnesium 30 mg tablet 30 mg PO DAILY Supplement 02/19/22 sumatriptan succinate 100 mg tablet (Imitrex) 100 mg PO Q2H PRN Migraine Headache 02/19/22 triamcinolone acetonide 55 mcg nasal spray aerosol (Nasacort) 2 spray intranasal DAILY Allergies 02/19/22 wheat dextrin 3 gram/3.5 gram oral powder 2 packet PO BID Supplement 02/19/22 acetaminophen 325 mg tablet (Tylenol) 650 mg PO Q6H PRN PRN Pain Score 1-10/Temp > 100.7 F #0 tabs 03/15/22 aluminum-mag hydroxide-simethicone 400 mg-400 mg-40 mg/5 mL oral susp (Mag-Al Plus Extra Strength) 30 ml PO Q4H PRN PRN Indigestion #0 mL 04/12/22 levothyroxine 175 mcg tablet 175 mcg PO 0600 #0 tabs 04/12/22 pantoprazole 40 mg tablet,delayed release 40 mg PO BID 30 days #60 tabs 04/12/22 polyethylene glycol 3350 17 gram oral powder packet 17 g PO TID 30 days #90 ea 04/12/22 simethicone 80 mg chewable tablet (Gas Relief (simethicone)) 80 mg PO TIDPC 30 days #90 tabs 04/12/22 sodium chloride 1,000 mg soluble tablet 1,000 mg PO BID 30 days #60 tabs 04/12/22 Hospital Course Operations None Procedures None Summary of Care Provided Minutes Spent on Discharge: 35 Hospital Course: 52 year old female with below past medical history significant for anal cancer, just finished chemotherapy, radiation, admitted to hospital with UTI, weakness, admitted to TCU with debility, here for rehabilitation, strengthening, prior to discharge home with isatu. Discharge home with isatu 04/13/2022, [facility], Dev Alarcon. Physical Exam Const alert General Appearance: cooperative HEENT normocephalic Eyes PERRL and EOMs intact bilaterally Neck supple, no JVD and no carotid bruits Resp normal respiratory effort, normal air movement and clear to auscultation bilaterally Cardio regular rate and regular rhythm GI normal to inspection, nondistended, normoactive bowel sounds, non-tender and non-distended Extremity normal capillary refill General Extremity: Negative for edema Skin no rashes or lesions noted General Skin Exam: no breakdown Psych affect normal Appearance: appropriate Medical Records Data Medical Nutrition Assessment Dietitian: Malnutrition Criteria Met Start: 04/10/22 13:35 Freq: Status: Active Protocol: Document 04/10/22 13:35 JOSELINE (Rec: 04/10/22 13:35 [facility] [id number]) Nutrition Malnutrition Evidence of Malnutrition Exists Yes Malnutrition (moderate): Acute Illness/Injury Evidenced By Suboptimal Energy Intake ( Moderate),Weight Loss (Severe) Intake Problem Increased Nutrient Needs (specify) Etiology protein related to need for skin healing Signs/Symptoms as evidenced by chiang to anal/ periarea and angelique groins r/t radiation treatment Status Active Problem Inadequate Oral Intake Status Inactive Problem Clinical Problem Acute Disease or Injury Related Malnutrition Etiology related to decreased appetite from chemo/radiation tx, issues with heart burn and bad taste in mouth causing her to have inadequate energy intake to meet est nutritional needs Signs/Symptoms as evidenced by 4% wt loss x 1 wk, 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 Weight / BMI Weight Weight: 84.912 kg Body Mass Index (BMI) 34.2 ABG / Lab / Microbiology Data Result Diagrams: 04/06/22 06:40 04/06/22 06:40 Microbiology: Microbiology 04/11/22 06:00 Nasal Secretion SARS-CoV-2 Antigen (Rapid) - Final 04/04/22 10:15 Nasal Secretion SARS-CoV-2 Antigen (Rapid) - Final 03/25/22 09:45 Nasal Secretion SARS-CoV-2 Antigen (Rapid) - Final 03/21/22 09:02 Urine Catheter - Mcclain Urine Culture - Final Culture exhibits no growth. 03/22/22 09:35 Nasal Secretion SARS-CoV-2 Antigen (Rapid) - Final D/C Instructions Discharge Diet: No restrictions Discharge Activity: Return to Normal Activity, May Shower and Use Walker Weight Bearing Status: Weight bearing as tolerated Call your doctor if you observe: Fever of 101 or Higher, Inability to urinate, Inability to have a bowel movement, Shortness of breath, Dizziness, Fainting spells, Swelling in the ankles, Chest pain and Uncontrolled pain Additional Instructions: Discharge home with fiance 04/13/2022, [facility] outpatient PT, [employer]. Meaningful Use Info Meaningful Use Diagnoses (Choose all that apply): None applicable Discharge Plan Admission Admit Date/Time: 03/15/22 18:57 Primary Reason for Your Visit: Debility. Attending Provider: Esau Silva Chi Primary Care Provider: Nicole Bailey Instructions Additional Instructions / Restrictions: Discharge home with fiance 04/13/2022, [facility] outpatient PT, [employer]. Discharge Orders/Prescriptions Prescriptions: New levothyroxine 175 mcg Tablet 175 mcg PO 0600 Qty: 0 0RF polyethylene glycol 3350 17 gram Powder In Packet 17 g PO TID 30 Days Qty: 90 0RF pantoprazole 40 mg Tablet,Delayed Release (Dr/Ec) 40 mg PO BID 30 Days Qty: 60 0RF alum-mag hydroxide-simeth [Mag-Al Plus Extra Strength] 400-400-40 mg/5 mL Suspension 30 ml PO Q4H PRN PRN (Reason: Indigestion) Qty: 0 0RF simethicone [Gas Relief (simethicone)] 80 mg Tablet,Chewable 80 mg PO TIDPC 30 Days Qty: 90 0RF sodium chloride 1,000 mg Tablet,Soluble 1,000 mg PO BID 30 Days Qty: 60 0RF Continued sumatriptan succinate [Imitrex] 100 mg Tablet 100 mg PO Q2H PRN (Reason: Migraine Headache) ergocalciferol (vitamin D2) 50,000 unit Tablet 50,000 unit PO QWEEK famotidine [Pepcid] 20 mg Tablet 20 mg PO QHS triamcinolone acetonide [Nasacort] 55 mcg Aerosol,[place] 2 spray INTRANASAL DAILY albuterol 90 mcg/actuation Aerosol 90 mcg INHALATION Q4H PRN (Reason: Wheezing) Lactobacillus acidophilus Capsule 10 mg PO BID magnesium 30 mg Tablet 30 mg PO DAILY cyanocobalamin (vitamin B-12) 25 mcg Tablet 50 mcg PO DAILY wheat dextrin 3 gram/3.5 gram Powder 2 packet PO BID cetirizine 10 mg Capsule 10 mg PO BID acetaminophen [Tylenol] 325 mg Tablet 650 mg PO Q6H PRN PRN (Reason: Pain Score 1-10/Temp > 100.7 F) Qty: 0 0RF Discontinued polyethylene glycol 3350 [Miralax] 17 gram Powder In Packet 17 g PO BID pantoprazole 40 mg Tablet,Delayed Release (Dr/Ec) 40 mg PO DAILY silver sulfadiazine [Silvadene] 1 % Cream 1 applic TOPICAL BID Rx Instructions: apply a 1.5 mm thickness lidocaine HCl 2 % jelly 1 tube topical Q6 Protocol: *Topical Application Instructions APPLICATION INSTRUCTIONS: To perineum levothyroxine 100 mcg tablet 200 mcg PO 0600 gabapentin 300 mg capsule 300 mg PO BIDCM levofloxacin 750 mg tablet 750 mg PO DAILY oxycodone 5 mg tablet 5 - 10 mg PO Q6H enoxaparin 40 mg/0.4 mL syringe 40 mg subcut DAILY oxycodone [OxyContin] 10 mg tablet,oral only,ext.rel.12 hr 10 mg PO BID Ensure Enlive 0.08 gram-1.5 kcal/mL liquid 120 ml PO 4X/DAY Referrals / Follow Up: Nicole Bailey PA [Primary Care Provider] - Disposition Disposition (needs filled in before D/C Order can be placed): Home, Self Care
[2022-04-12 15:13] VITALS: BP 91/61; PULSE 108; RESP 14; TEMP 36.4; O2SAT 98
[2022-04-12] MEDS: Loratadine 10 MG Tablet PO (17:25)
--- NOTE | 2022-04-12 17:27 | CASEMGMT ---
BIMS and PHQ9 interview completed on this date for MDS Assessment. ARYA Pickering
--- NOTE | 2022-04-12 18:09 | NURSING ---
Pt would like to wait to see her own bi application developer she reports feeling better.
[2022-04-12 22:05] VITALS: PULSE 92
[2022-04-12] MEDS: Famotidine 20 MG Tablet PO (22:06)
[2022-04-13 06:28] LABS: Absolute Lymphocyte Count 1.14 X10^3/uL (0.83-4.51); Absolute Neutrophil Count 3.8 X10^3/uL (2.0-7.7); Basophil# 0.04 X10^3/uL; Basophil% 0.7 % (0-1); Eosinophil# 0.18 X10^3/uL; Eosinophils% 3.1 % (0-5); Hematocrit 38.9 % (37-47); Lymphocyte # 1.14 X10^3/ul (0.83-4.51); Lymphocyte % 19.6 % (19-41); Mean Corp Hgb Conc 33.4 g/dL (32-36); Mean Corpuscular Hgb 31.5 pg (27.0-32.0); Mean Corpuscular Volume 94.2 fL (81-99); Mean Platelet Vol. 8.8 fl (6.2-12.0); Monocyte# 0.69 X10^3/uL; Monocyte% 11.8 % (0-10); NRBC Flagged by Analyzer 0 % (0-5); Neutrophil # 3.75 X10^3/uL (2.7-7.7); Neutrophil % 64.3 % (47-70); Platelet Count 234 K/mm3 (150-450); RBC Distribution Width CV 16.2 % (11.6-14.6); RBC Distribution Width SD 56.3 fl (35.1-43.9); Red Blood Count 4.13 M/mm3 (4.2-5.4); White Blood Count 5.8 K/mm3 (4.4-11.0)
[2022-04-13] MEDS: Levothyroxine 175 MCG Tablet PO (06:34)
[2022-04-13] MEDS: Clotrimazole 10 MG Troche MUCOUS MEM (06:34)
[2022-04-13 06:51] LABS: Anion Gap 7 (5-15); BUN 11 mg/dL (7-18); BUN/Creat Ratio 13.8 RATIO (10-20); Calcium,Total 8.9 mg/dL (8.5-10.1); Chloride 107 mmol/L (98-107); EST Glomerular Filtration Rate 81 mL/min (>60); Est Glom Filt Rate - Afr Amer 98 mL/min (>60); Estimated Creatinine Clearance 66.54 ml/min; Glucose 94 mg/dL (74-106); Potassium 3.7 mmol/L (3.5-5.1); Sodium Level 139 mmol/L (136-145)
[2022-04-13] MEDS: Pantoprazole Sodium 40 MG Tablet PO (08:02)
[2022-04-13] MEDS: Loratadine 10 MG Tablet PO (08:02)
[2022-04-13 09:14] VITALS: PULSE 113; RESP 18; O2SAT 98
[2022-04-13 10:06] VITALS: BP 95/66; PULSE 113; RESP 18; TEMP 36.6; O2SAT 98
== END 2022-04-13 10:11 | disposition home or self-care (01) | DRG 690 ==
PROVIDERS: Internal Medicine; Admitting Provider Family Medicine Geriatric Medicine; PCP Physician Assistant; Visit Provider Family Medicine Geriatric Medicine
DX: N39.0 Urinary tract infection, site not specified (principal); B37.0 Candidal stomatitis; E27.3 Drug-induced adrenocortical insufficiency; C21.0 Malignant neoplasm of anus, unspecified; R62.7 Adult failure to thrive; K21.9 Gastro-esophageal reflux disease without esophagitis; E89.0 Postprocedural hypothyroidism; E55.9 Vitamin D deficiency, unspecified; G43.909 Migraine, unspecified, not intractable, without status migrainosus; G62.9 Polyneuropathy, unspecified; J45.909 Unspecified asthma, uncomplicated; F41.9 Anxiety disorder, unspecified; T28 Burn and corrosion of other internal organs; Z92.21 Personal history of antineoplastic chemotherapy; Z92.3 Personal history of irradiation; Z79.01 Long term (current) use of anticoagulants; Z79.899 Other long term (current) drug therapy; Z79.890 Hormone replacement therapy; Z23 Encounter for immunization; T45.1X5D Adverse effect of antineoplastic and immunosuppressive drugs, subsequent encounter
CPT/HCPCS: 0064A; 36415; 74018; 80048; 81001; 82533; 84439; 84443; 84484; 85025; 85379; 87086; 87426; 87811; 91306; 93005; 97110; 97116; 97162; 97166; 97530; 97535; 97802; 90670; A4216; J0834; J3490

== ENCOUNTER → 2022-04-18 | Outpatient (CLI) | payer OTHER, SELFPAY ==
--- NOTE | 2022-04-18 17:49 | MRI_ITS ---
STUDY: MR PELVIS WITH T WITHOUT CONTRAST REASON FOR EXAM: Female, 52 years old. MALIGNANT NEOPLASM ANUS TECHNIQUE: Standardized fat and water weighted pulse sequences were obtained in all 3 orthogonal planes, pre-and post contrast administration. IV 17ml Dotarem was administered for the contrast portion of the examination. COMPARISON: The prior studies are not available for comparison.. FINDINGS: Soft tissue signal intensity visualized along the right anterolateral aspect of the anal verge extending from 6 o''clock to 12 o''clock measuring 1.8 x 0.8 cm seen on series 8 image 27, no irregularity in the underlying skin surface at this level, it appears to be projecting inferiorly from the mass in the right lateral aspect of the anus approximately 2 cm superiorly on MR series 3 image 23. On MR series 3 image 23 there is a circumferential mass extending from 7 o''clock to 3 o''clock around the rectum, it demonstrates irregularity in contour but most prominent along the right anterolateral aspect where it measures 4.0 x 2.2 cm in transverse diameters, on coronal series 11 image 8 the area of thickening and irregularity in the wall of the rectum measures 4.9 cm, note is made that there is irregularity of the wall of the rectum visualized above this level. Area of irregularity in the rectum appears to extend approximately 7 to 8 cm from the anal verge dose involving the mid and lower rectum. The tumor is visualized across the level of the puborectalis muscle. Extension of the tumor is visualized across the submucosa and muscularis propria. Mild stranding of the facial fat planes visualized along the right anterior lateral aspect of the rectum at the level of the rectovaginal septum suggestive of stranding of the mesorectal fascia cannot rule out microscopic invasion at this level. Seen on series 8 image 16. Lymph nodes: 1.1 x 0.7 cm soft tissue density suggestive of a lymph node visualized along the right lateral aspect of the rectum seen on series 8 image 12 and on axial series 12 image 62. Superior to this level there is a lymph node visualized in the right lateral pelvic wall measuring 0.7 cm seen on axial series 12 image 47. Irregular prominent right inguinal lymph nodes are visualized on series 12 image 60 and 65 measuring 1.7 and 1.3 cm respectively. Anteverted uterus is visualized with irregularity visualized in the contour of the endometrial cavity was multilevel cystic areas visualized. A 1.9 cm cyst is visualized in the left ovary. Normal urinary bladder. Normal visualized small intestine. Normal visualized colon. There is no pelvic fluid. Normal visualized pelvic arteries. Normal osseous structures. Normal abdominal wall. MRI/Pelvis W/WO Contrast IMPRESSION: Rectal mass visualized extending across the submucosa and muscularis propria with stranding of the overlying mesorectal fascia visualized along the right anterolateral aspect, localized adjacent right pelvic lymph node and a right inguinal lymphadenopathy seen. Electronically Signed: Tanner Capps MD at 10:30 EDT ,
== END | disposition home or self-care (01) ==
LOC: MRI 17:38
PROVIDERS: PCP Physician Assistant; Referring Provider Internal Medicine Hematology & Oncology; Visit Provider Internal Medicine Hematology & Oncology
DX: C21.0 Malignant neoplasm of anus, unspecified (principal)
CPT/HCPCS: 72197; A9575

== ENCOUNTER 2022-05-06 14:00 | Outpatient (RCR) | payer OTHER, SELFPAY ==
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
--- NOTE | 2022-09-10 09:36 | HP.PT.NRP ---
ALISHA RICE was seen in my office for initial evaluation on 04/22/22. The following Plan of Care was established for this patient: Initial Frequency: 2-3x /Week Initial Duration: 4-6 Weeks Patient/Client Instruction: Educate patient on: Condition, Plan of Care, Risk Factors For the Purpose of:: To improve self management Therapeutic Exercise to Include: Strength training, Endurance training, Body mechanics, Postural training, Flexibilty training, Gait and locomotor training, Neuromotor development, Dynamic Lumbar Stabilization, Scapular Strength/Stabilization For the Purpose of:: To decrease pain, To increase ROM, To improve muscle performance and motor function, To increase tolerance to activity/condition/position, To improve ability of physical actions for home/community/work/leisure, To improve gait and locomotor functions This patient was last seen in our office 05/06/22. Pertinent comments regarding their Physical therapy will appear below: This patient has not returned to Physical Therapy and is appropriate to return to MD for further follow-up as needed. At this point I will be discontinuing this patient from physical therapy. I would be happy to see this patient again in the future if found appropriate by the physician. Thank you! Ale Westbrook, PT, Cert MDT Balance/Gait/Functional tests - Balance/Special Test Scores Lower Extremity Functional Score: 10 TUG Test Time Seconds: 18.24 Tug Test: <20 sec.=mostly independent 30 Second Chair Rise Test Seconds: 6
== END 2022-05-06 19:00 | disposition home or self-care (01) ==
LOC: PT 14:00
PROVIDERS: PCP Physician Assistant; Referring Provider Family Medicine Geriatric Medicine; Visit Provider Family Medicine Geriatric Medicine
DX: R53.81 Other malaise (principal); R53.1 Weakness; E27.3 Drug-induced adrenocortical insufficiency
CPT/HCPCS: 97110; 97162; 97530

== ENCOUNTER 2022-12-09 12:32 | Emergency (ER) | payer OTHER, SELFPAY ==
[2022-12-09] VITALS (12 sets, daily range): BP systolic 97–121; BP diastolic 61–94; PULSE 82–102; RESP 14–20; TEMP 36.4–37.2; O2SAT 94–100; BMI 34.4
--- NOTE | 2022-12-09 12:55 | EX.ED.DYSGE1 ---
HPI History of Present Illness Chief Complaint: Wound Informant: patient Onset/Context/Timing Onset: Today Narrative Narrative: 52-year-old female history of anal cancer in which she had extensive surgery done in [facility] for anal resection, rectum resection and partial colectomy. She now has a colostomy. The wound became postop infected she recently had debridement done last week at [facility]. It was outpatient surgery. They now have packing in there and a wound VAC. Today when he went to change the dressing the wound care nurse they were unable to remove it due to discomfort. Prior similar symptoms: Yes Recent Illness/Hospitalization: Yes [facility] Medical History Anal cancer Anxiety Asthma Cancer of anorectum Encounter for management of wound VAC Esophageal stenosis External hemorrhoid GERD (gastroesophageal reflux disease) Hypothyroidism Internal hemorrhoid Neutropenia Pancytopenia Severe malnutrition Home Medications Lactobacillus acidophilus 10 mg PO BID Supplement 02/19/22 [History Last Taken Unknown] albuterol 90 mcg/actuation aerosol inhaler 90 mcg inhalation Q4H PRN Wheezing 02/19/22 [History Last Taken Unknown] cetirizine 10 mg capsule 10 mg PO BID Allergies 02/19/22 [History Last Taken Unknown] cyanocobalamin (vitamin B-12) 25 mcg tablet 50 mcg PO DAILY Supplement 02/19/22 [History Last Taken Unknown] ergocalciferol (vitamin D2) 50,000 unit tablet 50,000 unit PO QWEEK Supplement 02/19/22 [History Last Taken Unknown] famotidine 20 mg tablet (Pepcid) 20 mg PO QHS GERD 02/19/22 [History Last Taken Unknown] magnesium 30 mg tablet 30 mg PO DAILY Supplement 02/19/22 [History Last Taken Unknown] sumatriptan succinate 100 mg tablet (Imitrex) 100 mg PO Q2H PRN Migraine Headache 02/19/22 [History Last Taken Unknown] triamcinolone acetonide 55 mcg nasal spray aerosol (Nasacort) 2 spray intranasal DAILY Allergies 02/19/22 [History Last Taken Unknown] wheat dextrin 3 gram/3.5 gram oral powder 2 packet PO BID Supplement 02/19/22 [History Last Taken Unknown] acetaminophen 325 mg tablet (Tylenol) 650 mg PO Q6H PRN PRN Pain Score 1-10/Temp > 100.7 F #0 tabs 03/15/22 [Rx Last Taken Unknown] aluminum-mag hydroxide-simethicone 400 mg-400 mg-40 mg/5 mL oral susp (Mag-Al Plus Extra Strength) 30 ml PO Q4H PRN PRN Indigestion #0 mL 04/12/22 [Rx Last Taken Unknown] levothyroxine 175 mcg tablet 175 mcg PO 0600 #0 tabs 04/12/22 [Rx Last Taken Unknown] pantoprazole 40 mg tablet,delayed release 40 mg PO BID 30 days #60 tabs 04/12/22 [Rx Last Taken Unknown] polyethylene glycol 3350 17 gram oral powder packet 17 g PO TID 30 days #90 ea 04/12/22 [Rx Last Taken Unknown] simethicone 80 mg chewable tablet (Gas Relief (simethicone)) 80 mg PO TIDPC 30 days #90 tabs 04/12/22 [Rx Last Taken Unknown] sodium chloride 1,000 mg soluble tablet 1,000 mg PO BID 30 days #60 tabs 04/12/22 [Rx Last Taken Unknown] Allergy/AdvReac Type Severity Reaction Status Date / Time Beta-Blockers AdvReac allergy Verified 12/09/22 12:38 (Beta-Adrenergic Bloc immunotherapy tramadol AdvReac headache, Verified 12/09/22 12:38 stiffness Family History Mother Breast cancer Father TIA (transient ischemic attack) Alzheimer disease Hyperlipemia Pacemaker Surgical History H/O thyroidectomy History of delivery History of hip surgery Social History household members: significant other and children current occupational status: employed current occupation: counselor Smoking Status: Never smoker alcohol intake: never substance use type: does not use caffeine: Yes ROS ROS ED ROS Narrative Denies Review of Systems ROS Unobtainable: Denies due to encephalopathy Constitutional Constitutional ED: Denies chills Eyes Eyes: Denies blurry vision ENT ENT ED: Denies ear pain Cardiovascular Cardiovascular: Denies chest pain Respiratory/Chest Respiratory/Chest: Denies cough Gastrointestinal Gastrointestinal: Denies abdominal pain Genitourinary Genitourinary ED: Denies dysuria or hematuria Musculoskeletal Musculoskeletal: Denies arthralgias Integumentary Denies abscess Neurologic Neurologic: Denies headache(s) Psychiatric Psychiatric: Denies anxiety Endocrine Endocrinology: Denies cold intolerance Hematologic/Lymphatic Hematologic/Lymphatic: Reports none Allergic/Immunologic Allergic/Immunologic ED: Denies mouth swelling or tongue swelling EXAM Physical Exam Narrative Exam Narrative: Well-appearing 52-year-old female. Vital signs stable afebrile. H EENT exam unremarkable. Neck nontender. Lungs clear. Heart regular rhythm. Abdomen soft nontender. Colostomy. Moving all 4 extremities. Nontender no edema. Patient has packing black foam in her rectal area. There is no pus. No cellulitis. Mild swelling and tenderness at the site. She is awake and alert. Const Vital Signs: 12/09/22 12:34 12/09/22 12:38 12/09/22 13:38 Temperature 99 F 97.6 F L 97.8 F Temperature Source Temporal Temporal Temporal Pulse Rate 94 102 H 90 Respiratory Rate 20 H 16 16 Blood Pressure 104/72 102/64 104/68 Blood Pressure Mean 82 76 80 Pulse Ox 98 98 96 Oxygen Delivery Method Room Air Room Air Room Air 12/09/22 14:00 12/09/22 15:00 12/09/22 15:34 Temperature 97.7 F L 97.6 F L 99.0 F Temperature Source Temporal Temporal Pulse Rate 91 82 94 Respiratory Rate 14 16 15 Blood Pressure 97/67 107/72 113/75 Blood Pressure Mean 77 83 Pulse Ox 96 97 97 Oxygen Delivery Method Room Air Room Air Room Air Positive well nourished and well developed; Negative for cachectic, contractures or unkempt General Appearance ED: well developed and NAD; Negative for unkempt, cachectic, contractures, cyanotic or diaphoretic Nutritional Appearance: Negative for cachectic HEENT Reports moist mucous membranes Negative for trauma or tenderness Eyes PERRL and EOMs intact bilaterally General Eye ED: Negative for pale conjunctiva or scleral icterus Neck no lymphadenopathy, supple and no JVD General: Negative for tenderness Lymph Lymphatic: Negative for other Chest Wall inspection of chest normal and palpation of chest normal Chest: Negative for other Resp normal respiratory effort and clear to auscultation bilaterally Effort and Inspection: Negative for retractions Auscultation: Negative for rales, rhonchi or wheezes Cardio regular rate, regular rhythm, S1 normal heart sound, S2 normal heart sound and no murmurs GI normal to inspection, nondistended, normoactive bowel sounds, non-tender, non-distended and no masses GI Narrative: Colostomy. Auscultation: normoactive bowel sounds Palpation: soft; Negative for tender or guarding Back/Spine Negative for no CVA tenderness General Back: Negative for CVA tenderness Cervical Spine: Negative for cervical spine tenderness Thoracic Spine / Upper Back: Negative for thoracic spinal tenderness Lumbar Spine / Lower Back: Negative for lumbar spinal tenderness Extremity normal to inspection General Extremety ED: Negative for edema or tenderness General Extremity: Negative for edema Neuro oriented x3 Sensorium / Orientation: alert; Negative for orientation impaired Motor Exam: strength 5/5 throughout Psych Negative for mental status grossly normal Appearance: Negative for unkempt Attitude: No agitated Mood & Affect: anxious and tearful; Negative for depressed Skin no rashes or lesions noted and No no wounds Skin Narrative: Anorectal surgical wound. Rashes: No rashes noted Trauma: Negative for abrasion MDM MDM MDM Narrative Medical decision making narrative: 52-year-old with prior anal cancer had extensive surgery with recent debridement. Now has black, packing some that they are unable to remove when he went to do a dressing change today. She will be consciously sedated and then to be taken out with new foam placed. Wound care nurse will be involved. Patient was offered but did not want to go back to [facility] where she had this previously done. She will be treated with IV morphine and Zofran. The patient was given 50 mg IV of propofol. I was able to remove the black, packing sponge that was in her surgical wound in her rectum. The wound was clean. There was no pus. There is no significant cellulitis. There is some mild inflammation of her buttocks. There is no bleeding or clots. We placed it with a white packing sponge. Patient tolerated procedure well. She woke up from the conscious sedation quickly. She will be given 6 mg of morphine for pain. When she wakes up completely from the conscious sedation she will be discharged home with outpatient follow-up with her surgeons at [facility] and her wound care nurses. Procedures Procedural Sedation Procedural sedation: Consent Signed: Yes Any Problems With Anesthesia: No You/Your family experience fever (hyperthermia) w/anesthesia: No Sedation medication: Propofol Dose: 50 Route: IV Mallampati Score: Class II ASA Classification: II Comment:: Patient was on time sedation to remove wound gauze. She was given 50 mg IV of propofol. Was on the monitor the entire time. Her blood pressure and status remained stable. The packing was removed. The wound appeared dry and clean. No bleeding. No clots. No pus. Replaced with a white packing sponge. Discharge Plan Triage Chief Complaint: Wound ED Provider: Mohsen Rodriguez Dx/Rx/DC Orders Clinical Impression: Encounter for assessment of wound Prescriptions: No Action sumatriptan succinate [Imitrex] 100 mg Tablet 100 mg PO Q2H PRN (Reason: Migraine Headache) ergocalciferol (vitamin D2) 50,000 unit Tablet 50,000 unit PO QWEEK famotidine [Pepcid] 20 mg Tablet 20 mg PO QHS triamcinolone acetonide [Nasacort] 55 mcg Aerosol,[place] 2 spray INTRANASAL DAILY albuterol 90 mcg/actuation Aerosol 90 mcg INHALATION Q4H PRN (Reason: Wheezing) Lactobacillus acidophilus Capsule 10 mg PO BID magnesium 30 mg Tablet 30 mg PO DAILY cyanocobalamin (vitamin B-12) 25 mcg Tablet 50 mcg PO DAILY wheat dextrin 3 gram/3.5 gram Powder 2 packet PO BID cetirizine 10 mg Capsule 10 mg PO BID acetaminophen [Tylenol] 325 mg Tablet 650 mg PO Q6H PRN PRN (Reason: Pain Score 1-10/Temp > 100.7 F) Qty: 0 0RF levothyroxine 175 mcg Tablet 175 mcg PO 0600 Qty: 0 0RF polyethylene glycol 3350 17 gram Powder In Packet 17 g PO TID 30 Days Qty: 90 0RF pantoprazole 40 mg Tablet,Delayed Release (Dr/Ec) 40 mg PO BID 30 Days Qty: 60 0RF alum-mag hydroxide-simeth [Mag-Al Plus Extra Strength] 400-400-40 mg/5 mL Suspension 30 ml PO Q4H PRN PRN (Reason: Indigestion) Qty: 0 0RF simethicone [Gas Relief (simethicone)] 80 mg Tablet,Chewable 80 mg PO TIDPC 30 Days Qty: 90 0RF sodium chloride 1,000 mg Tablet,Soluble 1,000 mg PO BID 30 Days Qty: 60 0RF Primary Care Provider: Nicole Bailey Referrals: Nicole Bailey PA [Primary Care Provider] - Activity Restrictions/Additional Instructions: Follow-up with your surgeon at [facility] soon as possible. Follow-up with your great wound care nurses today or tomorrow. Disposition Disposition: Home, Self Care
[2022-12-09] MEDS: morphine 8 MG/ML Syringe 6 MG IV ×2 (13:12→15:56)
[2022-12-09] MEDS: Ondansetron 4 MG/2 ML Vial IV (13:12)
== END 2022-12-09 16:44 | disposition home or self-care (01) ==
PROVIDERS: Emergency Provider Emergency Medicine; PCP Physician Assistant; Visit Provider Emergency Medicine
DX: Z48.01 Encounter for change or removal of surgical wound dressing (principal); Z93.3 Colostomy status; Z85.048 Personal history of other malignant neoplasm of rectum, rectosigmoid junction, and anus; Z98.890 Other specified postprocedural states; J45.909 Unspecified asthma, uncomplicated
CPT/HCPCS: 96374; 96375; 96376; 99285; J2405

== ENCOUNTER 2023-05-17 12:26 | Emergency (ER) | payer OTHER, SELFPAY ==
[2023-05-17 12:28] VITALS: BP 141/112; PULSE 140; RESP 22; TEMP 37.2; O2SAT 98; BMI 34.3
--- NOTE | 2023-05-17 12:38 | EKG12_ITS ---
Test Reason : Blood Pressure : / mmHG Vent. Rate : 120 BPM Atrial Rate : 120 BPM P-R Int : 160 ms QRS Dur : 076 ms QT Int : 298 ms P-R-T Axes : 044 -68 012 degrees QTc Int : 421 ms Sinus tachycardia Low voltage QRS Left anterior fascicular block Cannot rule out Inferior infarct (masked by fascicular block?) , age undetermined Abnormal ECG Confirmed by KIRIT MARRUFO, SHERITA ([id number]), technical writer and editor CJ MEDEIROS ([id number]) on 06/02/2023 1:53:09 PM Referred By: Confirmed By:RUDY BETH MD
--- NOTE | 2023-05-17 12:40 | EX.ED.DYSGE1 ---
HPI History of Present Illness Chief Complaint: Palpitations Detail of Chief Complaint: Cough, shortness of breath, palpitations Informant: patient Narrative Narrative: Patient presents with palpitations and URI symptoms. She states her daughter was recently ill with a URI and is now improved. Patient reports she has been ill since last Friday and continues to worsen. She had a low-grade fever. Her cough is recently started producing yellow sputum. She noted her heart rate to be elevated today. Her heart rate was 150 at urgent care and she was sent to the emergency room for further work-up. She does report taking a COVID test on that was unremarkable. Patient is recovering from cancer treatment. She states her last surgery was in early February. She is not currently on any immune suppressants. [facility] Medical History Anal cancer Anxiety Asthma Cancer of anorectum Encounter for management of wound VAC Esophageal stenosis External hemorrhoid GERD (gastroesophageal reflux disease) Hypothyroidism Internal hemorrhoid Neutropenia Pancytopenia Post-operative pain Severe malnutrition Home Medications Lactobacillus acidophilus 10 mg PO BID Supplement 02/19/22 [History Last Taken Unknown] albuterol 90 mcg/actuation aerosol inhaler 90 mcg inhalation Q4H PRN Wheezing 02/19/22 [History Last Taken Unknown] cetirizine 10 mg capsule 10 mg PO BID Allergies 02/19/22 [History Last Taken Unknown] cyanocobalamin (vitamin B-12) 25 mcg tablet 50 mcg PO DAILY Supplement 02/19/22 [History Last Taken Unknown] ergocalciferol (vitamin D2) 50,000 unit tablet 50,000 unit PO QWEEK Supplement 02/19/22 [History Last Taken Unknown] famotidine 20 mg tablet (Pepcid) 20 mg PO QHS GERD 02/19/22 [History Last Taken Unknown] magnesium 30 mg tablet 30 mg PO DAILY Supplement 02/19/22 [History Last Taken Unknown] sumatriptan succinate 100 mg tablet (Imitrex) 100 mg PO Q2H PRN Migraine Headache 02/19/22 [History Last Taken Unknown] triamcinolone acetonide 55 mcg nasal spray aerosol (Nasacort) 2 spray intranasal DAILY Allergies 02/19/22 [History Last Taken Unknown] wheat dextrin 3 gram/3.5 gram oral powder 2 packet PO BID Supplement 02/19/22 [History Last Taken Unknown] acetaminophen 325 mg tablet (Tylenol) 650 mg (2 x 325 mg) PO Q6H PRN PRN Pain Score 1-10/Temp > 100.7 F #0 tabs 03/15/22 [Rx Last Taken Unknown] aluminum-mag hydroxide-simethicone 400 mg-400 mg-40 mg/5 mL oral susp (Mag-Al Plus Extra Strength) 30 ml PO Q4H PRN PRN Indigestion #0 mL 04/12/22 [Rx Last Taken Unknown] levothyroxine 175 mcg tablet 175 mcg PO 0600 #0 tabs 04/12/22 [Rx Last Taken Unknown] pantoprazole 40 mg tablet,delayed release 40 mg PO BID 30 days #60 tabs 04/12/22 [Rx Last Taken Unknown] polyethylene glycol 3350 17 gram oral powder packet 17 g PO TID 30 days #90 ea 04/12/22 [Rx Last Taken Unknown] simethicone 80 mg chewable tablet (Gas Relief (simethicone)) 80 mg PO TIDPC 30 days #90 tabs 04/12/22 [Rx Last Taken Unknown] sodium chloride 1,000 mg soluble tablet 1,000 mg PO BID 30 days #60 tabs 04/12/22 [Rx Last Taken Unknown] Allergy/AdvReac Type Severity Reaction Status Date / Time Beta-Blockers AdvReac allergy Verified 05/17/23 12:28 (Beta-Adrenergic Bloc immunotherapy tramadol AdvReac headache, Verified 05/17/23 12:28 stiffness Family History Mother Breast cancer Father TIA (transient ischemic attack) Alzheimer disease Hyperlipemia Pacemaker Surgical History H/O thyroidectomy History of delivery History of hip surgery Social History household members: significant other and children current occupational status: employed current occupation: counselor Smoking Status: Never smoker alcohol intake: never substance use type: does not use caffeine: Yes ROS ROS ED Constitutional Constitutional ED: Reports fever(s); Denies chills Eyes Eyes: Denies change in vision or discharge from eye(s) ENT ENT ED: Denies discharge from eye(s), rhinorrhea or sore throat Cardiovascular Cardiovascular: Reports chest pain and palpitations Respiratory/Chest Respiratory/Chest: Reports cough and dyspnea Gastrointestinal Gastrointestinal: Denies abdominal pain, diarrhea, nausea or vomiting Genitourinary Genitourinary ED: Denies difficulty urinating or dysuria Musculoskeletal Musculoskeletal: Reports extremity pain and myalgias; Denies back pain Integumentary Denies Abrasions or rash Neurologic Neurologic: Reports headache(s); Denies weakness Psychiatric Psychiatric: Denies anxiety or depression Allergic/Immunologic Allergic/Immunologic ED: Denies lip swelling or urticaria EXAM Physical Exam Const Vital Signs: 05/17/23 12:28 05/17/23 13:01 05/17/23 13:01 Temperature 99 F 97.4 F L Temperature Source Temporal Temporal Pulse Rate 140 H 118 H 118 H Respiratory Rate 22 H 12 14 Respiratory Effort Respiratory Pattern Blood Pressure 141/112 H 112/78 112/78 Blood Pressure Mean 121 89 89 Pulse Ox 98 96 98 Oxygen Delivery Method Room Air Room Air Room Air 05/17/23 13:08 Temperature Temperature Source Pulse Rate Respiratory Rate Respiratory Effort Normal Non-Labored Respiratory Pattern Normal Blood Pressure Blood Pressure Mean Pulse Ox Oxygen Delivery Method Positive well nourished and well developed General Appearance ED: well developed HEENT Reports normocephalic and head/scalp atraumatic Eyes PERRL and EOMs intact bilaterally Neck supple Chest Wall inspection of chest normal and palpation of chest normal Resp normal respiratory effort Resp Narrative: Mild diminished breath sounds bilateral bases Cardio regular rhythm Rate: tachycardic GI non-tender GI Narrative: Colostomy bag noted to the left abdomen. No surrounding erythema. Palpation: soft Extremity normal to inspection Neuro oriented x3 and no sensory deficits noted Sensorium / Orientation: alert Motor Exam: strength 5/5 throughout Psych mental status grossly normal Skin no rashes or lesions noted MDM MDM MDM Narrative Medical decision making narrative: Patient placed on seed expert. IV line established. EKG obtained to evaluate for cardiac arrhythmia/ischemia. Labwork obtained to evaluate for leukocytosis, anemia, and electrolyte derangement. Chest x-ray obtained to evaluate for acute lung pathology, cardiac size, or mediastinal abnormality. Swab for COVID and influenza obtained. IV fluids initiated. History & Record Review Discussion w/independent historian: Patient Lab Data Attestation: I reviewed the patient's lab results. Labs: Laboratory Results - last 24 hr 05/17/23 12:45 WBC 6.1 RBC 5.00 Hgb 13.1 Hct 41.6 MCV 83.2 MCH 26.2 L MCHC 31.5 L RDW Std Deviation 48.0 H RDW Coeff of Rosie 15.8 H Plt Count 227 MPV 9.3 Immature Gran % (Auto) 0.500 Neut % (Auto) 65.2 Lymph % (Auto) 16.7 L [place] % (Auto) 14.5 H Eos % (Auto) 2.6 Baso % (Auto) 0.5 Absolute Neuts (auto) 4.0 Absolute Lymphs (auto) 1.01 Nucleated RBC % 0 D-Dimer Quant (PE/DVT) 0.47 Sodium 139 Potassium 3.8 Chloride 105 Carbon Dioxide 25.0 Anion Gap 9 BUN 11 Creatinine 0.77 Estim Creat Clear Calc 71.50 Est GFR (MDRD) Af Amer 101 Est GFR (MDRD) Non-Af 84 BUN/Creatinine Ratio 14.3 Glucose 94 Calcium 9.1 Total Bilirubin 0.20 Direct Bilirubin 0.06 AST 18 ALT 23 Alkaline Phosphatase 84 Troponin I High Sens 3 Total Protein 8.2 Albumin 3.9 Globulin 4.3 H Radiography Chest X-Ray - ED: 1 View, Read by ED Physician, Normal, Heart, Lungs and Mediastinum Diagnostic Testing: Clinical Impression(s) from Imaging Studies Chest X-Ray 05/17/23 12:56 IMPRESSION: No radiographic evidence of acute cardiopulmonary disease. Electronically Signed: Jean Hernandez MD at 13:24 EDT Reading Location ID and State: [facility] / [place] Tel , Service support , EKG Initial EKG: Attestation: I personally reviewed and interpreted this EKG as follows: Interpretation: Sinus Tachycardia (Sinus tach at 120 with no acute ischemia.) Differential Diagnosis Chest pain/SOB: pulmonary embolism Reason(s) PE less likely: Positive for D-Dimer negative and not hypoxic, pneumothorax Reason(s) pneumothorax less likely: Positive for bilateral breath sounds and FOREMAN/PROJECT MANAGER withhout PTX and pneumonia Reason(s) pneumonia less likely: Positive for no infiltrate on CXR and no elevation in WBC count Treatment and Re-Evaluation :: CBC was normal white count at 6.1 with a hemoglobin of 13.1. No left shift noted. Chemistry studies are unremarkable with normal renal function. Glucose is 94. Troponin is normal at 3. D-dimer is normal at 0.47. Portable chest x-ray per my interpretation reveals no focal infiltrate. Radiology interpretation is reviewed and agrees. COVID test does return positive. On repeat evaluation heart rate at rest is around 105. She remains in a sinus rhythm. Test results are discussed with her. She will continue supportive care. She is outside the window for Paxlovid treatment. Return instructions are given. Discharge Plan Triage Chief Complaint: Palpitations ED Provider: Latisha Badillo Dx/Rx/DC Orders Clinical Impression: COVID-19 Instructions: Coronavirus Disease 2019 (COVID-19): Overview, Coronavirus Disease 2019 (COVID-19): Caring for Yourself or Others Prescriptions: No Action sumatriptan succinate [Imitrex] 100 mg Tablet 100 mg PO Q2H PRN (Reason: Migraine Headache) ergocalciferol (vitamin D2) 50,000 unit Tablet 50,000 unit PO QWEEK famotidine [Pepcid] 20 mg Tablet 20 mg PO QHS triamcinolone acetonide [Nasacort] 55 mcg Aerosol,[place] 2 spray INTRANASAL DAILY albuterol 90 mcg/actuation Aerosol 90 mcg INHALATION Q4H PRN (Reason: Wheezing) Lactobacillus acidophilus Capsule 10 mg PO BID magnesium 30 mg Tablet 30 mg PO DAILY cyanocobalamin (vitamin B-12) 25 mcg Tablet 50 mcg PO DAILY wheat dextrin 3 gram/3.5 gram Powder 2 packet PO BID cetirizine 10 mg Capsule 10 mg PO BID acetaminophen [Tylenol] 325 mg Tablet 650 mg PO Q6H PRN PRN (Reason: Pain Score 1-10/Temp > 100.7 F) Qty: 0 0RF levothyroxine 175 mcg Tablet 175 mcg PO 0600 Qty: 0 0RF polyethylene glycol 3350 17 gram Powder In Packet 17 g PO TID 30 Days Qty: 90 0RF pantoprazole 40 mg Tablet,Delayed Release (Dr/Ec) 40 mg PO BID 30 Days Qty: 60 0RF alum-mag hydroxide-simeth [Mag-Al Plus Extra Strength] 400-400-40 mg/5 mL Suspension 30 ml PO Q4H PRN PRN (Reason: Indigestion) Qty: 0 0RF simethicone [Gas Relief (simethicone)] 80 mg Tablet,Chewable 80 mg PO TIDPC 30 Days Qty: 90 0RF sodium chloride 1,000 mg Tablet,Soluble 1,000 mg PO BID 30 Days Qty: 60 0RF Primary Care Provider: Nicole Bailey Referrals: Nicole Bailey, PA [Primary Care Provider] - 1-2 Weeks Disposition Disposition: Home, Self Care
--- NOTE | 2023-05-17 12:56 | RAD_ITS ---
INDICATION: sob EXAMINATION/TECHNIQUE: X-RAY - portable upright AP chest x-ray COMPARISON: 03/10/2022 FINDINGS: LINES/DEVICES: None. LUNGS: No consolidation, edema or effusion. No pneumothorax. MEDIASTINUM AND CARDIOVASCULAR STRUCTURES: Cardiac silhouette not enlarged. Central airways and mediastinal contour are unremarkable. BONES AND SOFT TISSUES: No acute changes. RAD/Chest 1 View (Portable) IMPRESSION: No radiographic evidence of acute cardiopulmonary disease. Electronically Signed: Jean Hernandez MD at 13:24 EDT ,
[2023-05-17 13:01] VITALS: BP 112/78; PULSE 118; RESP 12; RESP 14; TEMP 36.3; O2SAT 96; O2SAT 98
[2023-05-17 13:13] LABS: Absolute Lymphocyte Count 1.01 X10^3/uL (0.83-4.51); Basophil# 0.03 X10^3/uL; Basophil% 0.5 % (0-1); Eosinophil# 0.16 X10^3/uL; Eosinophils% 2.6 % (0-5); Hematocrit 41.6 % (37-47); Hemoglobin 13.1 g/dL (12.0-15.0); Lymphocyte # 1.01 X10^3/ul (0.83-4.51); Lymphocyte % 16.7 % (19-41); Mean Corp Hgb Conc 31.5 g/dL (32-36); Mean Corpuscular Hgb 26.2 pg (27.0-32.0); Mean Corpuscular Volume 83.2 fL (81-99); Mean Platelet Vol. 9.3 fl (6.2-12.0); Monocyte# 0.88 X10^3/uL; Monocyte% 14.5 % (0-10); NRBC Flagged by Analyzer 0 % (0-5); Neutrophil # 3.95 X10^3/uL (2.7-7.7); Neutrophil % 65.2 % (47-70); Platelet Count 227 K/mm3 (150-450); RBC Distribution Width CV 15.8 % (11.6-14.6); White Blood Count 6.1 K/mm3 (4.4-11.0)
[2023-05-17 13:18] LABS: AST(SGOT) 18 U/L (15-37); Alanine Aminotransfer ALT/SGPT 23 U/L (13-56); Albumin, Serum 3.9 g/dL (3.2-5.0); Alkaline Phosphatase 84 U/L (45-117); Anion Gap 9 (5-15); BUN 11 mg/dL (7-18); BUN/Creat Ratio 14.3 RATIO (10-20); Bilirubin, Direct 0.06 mg/dL (0.00-0.30); Calcium,Total 9.1 mg/dL (8.5-10.1); Chloride 105 mmol/L (98-107); Creatinine, Serum 0.77 mg/dL (0.55-1.02); EST Glomerular Filtration Rate 84 mL/min (>60); Est Glom Filt Rate - Afr Amer 101 mL/min (>60); Globulin 4.3 g/dL (2.2-4.2); Glucose 94 mg/dL (74-106); Potassium 3.8 mmol/L (3.5-5.1); Protein, Total 8.2 g/dL (6.4-8.2); Sodium Level 139 mmol/L (136-145); Troponin-I HS 3 pg/mL (3.0-54.0)
[2023-05-17 13:20] LABS: D-Dimer Quantitative (DVT/PE) 0.47 FEU/ug/m (0.27-0.49)
[2023-05-17 13:57] VITALS: BP 117/76; PULSE 109; RESP 16; O2SAT 100
== END 2023-05-17 13:59 | disposition home or self-care (01) ==
PROVIDERS: Emergency Provider Emergency Medicine; PCP Physician Assistant; Visit Provider Emergency Medicine
DX: U07.1 COVID-19 (principal); J45.909 Unspecified asthma, uncomplicated; R51.9 Headache, unspecified; R00.2 Palpitations
CPT/HCPCS: 71045; 80048; 80076; 84484; 85025; 85379; 87040; 87428; 93005; 96360; 99285; J7030; A4216